=== PATIENT | male | born 1940 | race Caucasian/White ===

== ENCOUNTER 2020-01-24 15:09 | Emergency (ER) | payer MEDICARE, SELFPAY ==
[2020-01-24] VITALS (7 sets, daily range): BP systolic 117–144; BP diastolic 59–106; PULSE 86–104; RESP 16–18; TEMP 36.6; O2SAT 92–98
--- NOTE | 2020-01-24 15:11 | PC.NURSE ---
Patient and son yelling at staff at this time, get a in here now! Advised patient and son, i will find EDP at this time, also told family that I can not administer any medication unless ordered by EDP.
--- NOTE | 2020-01-24 15:13 | PC.NURSE ---
Patient son yelling out of room I need a doctor in here he has no fucking blood flow to his leg . Advised son that the doctor was with other patients and that he would be in as soon as he could.
--- NOTE | 2020-01-24 15:21 | ECG_ITS ---
Measurements Intervals [place] Rate: 80 P: [place]: 0 QRS: 43 QRSD: 109 T: -5 QT: 401 QTc: 464 Interpretive Statements ATRIAL FIBRILLATION VENTRICULAR PREMATURE COMPLEX EARLY PRECORDIAL R/S TRANSITION BORDERLINE ST-T WAVE ABNORMALITY- ANTEROLAT/INF LEADS BASELINE WANDER- AVR, AVL, AVF, V1-V3 ABNORMAL ECG Electronically Signed On 01-24-2020 20:35:22 CDT by Lex Anna D.O.
--- NOTE | 2020-01-24 15:21 | PC.NURSE ---
Zofran 4 mg and morphine 4 mg given IVP at this time, verbal order Dr. Hernandez.
--- NOTE | 2020-01-24 15:29 | ED.GENADULT ---
HPI - General Adult General Chief complaint: Extremity Injury, Lower Stated complaint: left knee and hip pain History of Present Illness HPI narrative: Patient is an 79-year-old male who presents ER with left lower extremity pain. Reports at 11 AM he started having some pain in his calf radiating down into his foot. It felt like a cramp. He was walking around trying to make it feel better. The pain has since started moving up his leg. The last 30 minutes he has developed severe uncontrolled pain of the left lower extremity and cannot find a position of comfort. Also in the last 30 minutes his leg has turned pale white. Patient has history of arterial occlusion of the same extremity in the past. He had a 3 stents placed at [facility] in the past in the same leg. Related Data Home Medications Medication Instructions Recorded Confirmed Unable to Obtain Home Medications 01/24/20 01/24/20 Allergies Allergy/AdvReac Type Severity Reaction Status Date / Time No Known Allergies Allergy Verified 01/24/20 15:21 Review of Systems Review of Systems: All systems reviewed & are unremarkable except as noted in HPI and below Cardiovascular: Comments: Decreased pulses in LLE Musculoskeletal: Musculoskeletal: Reports tingling Comments: LLE pain Integumentary/Breasts: Comments: Pale LLE PMFSH Past Medical History Medical History (Updated 01/24/20 @ 15:56 by Troy Hernandez MD) Arterial occlusion, lower extremity Atrial fibrillation Surgical History Surgical History (Updated 01/24/20 @ 15:35 by Troy Hernandez MD) History of revascularization procedure of lower extremity Social History Social History (Updated 01/24/20 @ 15:35 by Troy Hernandez MD) Smoking status: Never smoker Exam Narrative: Exam Narrative: GENERAL: Uncomfortable-appearing, well-nourished, and in moderate distress. HEAD: Normocephalic, atraumatic. ENT: Mucous membranes moist. CHEST: Clear to auscultation. No respiratory distress. HEART: Irregular regular rate and rhythm. Decreased pulses left lower extremity. Normal femoral pulses bilaterally. Normal radial pulses bilaterally. Dopplerable posterior tibial pulses right lower extremity. ABDOMEN: Soft, nontender, nondistended. EXTREMITIES: Normal range of motion. No edema. SKIN: Warm, diaphoretic, no rash. Pale left lower extremity compared to right. NEURO: Alert and oriented x3. Sharp touch intact. Course Course Emergency Course: I discussed the case with Dr. Ulrich with Vascular Surgery at [facility]. He preformed previous operation in Apr 2019. Recommends heparin bolus and gtt and to transfer to the ED. Pt has received bolus and gtt is coming from pharmacy. Dr. Corley in the ED has accepted patient. Currently arranging transport. Reevaluation(s) Reevaluation #1: Patient much more comfortable after morphine and Dilaudid for pain. Still reports pain however he is no longer writhing on the bed and is lying calmly with his eyes closed. His left lower extremity has improved in color. Is no longer bright light and has started to develop some purple appearance. Leg is warm compared to the right. Still no pulses can be palpated. Multiple ambulance companies have been contacted with 2-hour wait for an ambulance arrival. Is raining outside and [employer] has been contacted who cannot fly due to the weather. Date: 01/24/20 Time: 16:20 Reevaluation #2: Patient more comfortable despite sudden pain in the leg. Ambulance should be here shortly for transfer. Multiple other agencies called and no ambulances were available. Date: 01/24/20 Time: 17:58 Reevaluation #3: Ambulance arrival time pushed back from 1800 to . Will apply nitro past to see if it helps improve flow. Date: 01/24/20 Time: 18:54 Additional Reevaluation(s): Ambulance has arrived for transport at 1913. Nitro not yet applied so we will discontinue. Vital Signs Vital signs: Vital Signs Temperature 98 F 01/24/20 15:03 Puls
[2020-01-24] MEDS: HEPARIN SODIUM 5,000 UNITS/ML VIAL 8500 UNITS IV PUSH (15:34)
[2020-01-24 15:36] LABS: Hematocrit 40.3 % (42.0-52.0); Hemoglobin 13.4 g/dL (14.0-18.0); Mean Corpuscular HGB Conc 33.3 g/dl (32-36); Mean Corpuscular Hemoglobin 35.3 pg (26-34); Mean Corpuscular Volume 106.1 fl (80-100); Mean Platelet Volume 11.9 fl (7.4-10.4); Platelet Count Result 800 k/mm3 (150-375); Red Cell Distribution Width 16.5 % (11.5-14.5); White Blood Count 15.9 K/mm3 (4.5-10.0)
[2020-01-24 15:46] LABS: INR 1.3; Prothrombin Time 15.8 Seconds (11.1-14.7)
[2020-01-24 15:48] LABS: Anion Gap 10 mmol/L (8-16); Blood Urea Nitrogen 22 mg/dL (9-20); Calcium 9.2 mg/dL (8.4-10.2); Carbon Dioxide 26 mmol/L (22-30); Chloride 101 mmol/L (98-107); Estimated CRCL calculation 49 ml/min; Estimated Glomerular Filt Rate 53; Glucose 155 mg/dL (75-110); Potassium 3.7 mmol/L (3.4-5.0); Sodium 137 mmol/L (137-145)
[2020-01-24 15:50] LABS: Total Cells Counted 100
[2020-01-24 15:51] LABS: Eosinophils Absolute Manual 0.15 K/mm3 (0.02-0.5); Eosinophils Percent Manual 1 % (0-4); Lymphocytes Absolute Manual 3.33 K/mm3 (1.1-4.5); Lymphocytes Percent Manual 21 % (18-44); Monocytes Absolute Manual 2.38 K/mm3 (0.1-0.90); Monocytes Percent Manual 15 % (3-9); Neutrophils Percent Manual 63 % (46-73); Platelet Estimate Increased (Adequate)
[2020-01-24 15:52] LABS: Anisocytosis 1+ (NORMAL); Ovalocytes 1+ (NORMAL); Platelet Clumps Present
[2020-01-24] MEDS: HYDROmorphone HCL INJ (*CRX) 1 MG/ML SYR IV PUSH (16:00)
[2020-01-24] MEDS: HEPARIN SOD/D5W 100 UNITS/ML 25,000 UNITS/250 ML BAG 15 UNITS IV CONT (16:03)
[2020-01-24] MEDS: MORPHINE SULFATE (*CRX) 4 MG/ML INJ (17:57)
[2020-01-24] MEDS: MORPHINE SULFATE (*CRX) 4 MG/ML INJ IV PUSH (19:14)
--- NOTE | 2020-01-30 10:06 | PC.NURSE ---
LATE ENTRY This note is being entered to document information to the patient's record. The following information was omitted on 01/24/2020 at 1930. Patient transferred to [place] ED with heparin gtt infusing.
== END 2020-01-24 16:16 | disposition short-term general hospital (02) ==
PROVIDERS: Emergency Provider Emergency Medicine; PCP Internal Medicine
DX: I99.8 Other disorder of circulatory system (principal); I48.91 Unspecified atrial fibrillation; I49.3 Ventricular premature depolarization; R94.31 Abnormal electrocardiogram [ECG] [EKG]
CPT/HCPCS: 36415; 80048; 85025; 85610; 85730; 93005; 96365; 96366; 96375; 96376; 99285; J1170; J1644; J2270; J2405

== ENCOUNTER 2020-10-24 13:35 | Inpatient (IN) | payer MEDICARE, SELFPAY ==
[2020-10-24] VITALS (13 sets, daily range): BP systolic 84–111; BP diastolic 50–65; PULSE 71–108; RESP 14–20; TEMP 36.1–36.6; O2SAT 93–100; BMI 29.0
--- NOTE | ~2020-10-24 | XR_ITS ---
XR chest 2V DATE: 10/24/2020 14:13 INDICATION: Dizziness. Weakness. Shortness of breath. TECHNIQUE: AP and lateral chest COMPARISON: None FINDINGS: There is prominent elevation left leaf of diaphragm with associated mild atelectasis at the left lung base. The lungs are otherwise clear. No pleural effusion or pulmonary vascular congestion or pneumothorax. Heart size appears within normal limits. There is aortic ectasia and unfolding. No hilar or mediastin al enlargement. IMPRESSION: Prominent elevation left leaf of diaphragm with associated mild atelectasis at the left l yecenia base Reviewed, dictated and finalized at location A. IMPRESSION: Prominent elevation left leaf of diaphragm with associated mild ate lectasis at the left lung base
--- NOTE | ~2020-10-24 | XR_ITS ---
EXAMINATION: XR chest 2V EXAM DATE: 10/29/2020 16:30 INDICATION: Fever, eval for pneumonia. TECHNIQUE: Frontal and lateral projections of the chest obtained and reviewed. Comparison is made to prior examination from 10/24/2020. FINDINGS: Elevated left hemidiaphragm, possible paralysis. Some increase in the adjacent left basila r opacities, could be increasing atelectasis but developing pneumonia not excludable. There is no pne umothorax suspected. There are no pleural effusions. The cardiomediastinal silhouette is prominent bu t magnified on this AP technique. IMPRESSION: 1. Some progression of left basilar opacities, partly atelectasis but pneumonia not excludable. 2. Left hemidiaphragm elevation, possible paralysis. Reviewed, dictated and finalized at location A. IMPRESSION: 1. Some progression of left basilar opacities, partly atelectasis but pneumoni a not excludable. 2. Left hemidiaphragm elevation, possible paralysis.
--- NOTE | 2020-10-24 13:37 | ECG_ITS ---
Measurements Intervals [place] Rate: 96 P: [place]: 0 QRS: 26 QRSD: 98 T: -8 QT: 357 QTc: 451 Interpretive Statements ATRIAL FIBRILLATION BORDERLINE ST-T WAVE ABNORMALITY- INFERIOR LEADS BASELINE WANDER- I, II, III ABNORMAL ECG Electronically Signed On 10-24-2020 13:48:17 CDT by Lex Anna D.O.
[2020-10-24 13:51] LABS: Basophils Percent Auto 0.7 % (0.2-1.2); Eosinophils Percent Auto 0.7 % (0-4.4); Hematocrit 23.9 % (42.0-52.0); Hemoglobin 7.7 g/dL (14.0-18.0); Immature Granulocyte Absolute 0.09 K/mm3 (0.00-0.031); Immature Granulocyte Percent A 1.6 % (0-0.5); Lymphocytes Absolute Auto 1.36 K/mm3 (0.9-3.2); Lymphocytes Percent Auto 24.2 % (18.3-44.2); Mean Corpuscular HGB Conc 32.2 g/dl (32-36); Mean Corpuscular Hemoglobin 41.2 pg (26-34); Mean Corpuscular Volume 127.8 fl (80-100); Mean Platelet Volume 11.6 fl (7.4-10.4); Monocytes Absolute Auto 0.6 K/mm3 (0.1-0.6); Neutrophils Absolute Auto 3.5 K/mm3 (1.3-6.7); Neutrophils Percent Auto 62.8 % (45.5-73.1); Nucleated Red Blood Cells Absolute Auto 0.1 K/mm3 (0.0-0.012); Nucleated Red Blood Cells Perc 2.1 % (0.0-0.2); Platelet Count Result 641 k/mm3 (150-375); Red Blood Count 1.87 M/mm3 (4.6-6.20); Red Cell Distribution Width 21.2 % (11.5-14.5); White Blood Count 5.6 K/mm3 (4.5-10.0)
[2020-10-24 14:05] LABS: Alanine Aminotransferase 16 U/L (4-50); Albumin Level 3.4 g/dL (3.5-5.1); Alkaline Phosphatase 70 U/L (38-126); Anion Gap 6 mmol/L (8-16); Aspartate Amino Transferase 29 U/L (17-59); Bilirubin,Total 0.5 mg/dL (0.2-1.3); Blood Urea Nitrogen 28 mg/dL (9-20); Calcium 8.6 mg/dL (8.4-10.2); Carbon Dioxide 28 mmol/L (22-30); Chloride 102 mmol/L (98-107); Estimated CRCL calculation 47 ml/min; Estimated Glomerular Filt Rate 53; Glucose 106 mg/dL (65-110); Potassium 3.9 mmol/L (3.4-5.0); Sodium 136 mmol/L (137-145)
[2020-10-24 14:27] LABS: Add Urine Microscopic? YES; Appearance Urine Clear (Clear); Bacteria Urine Trace /hpf; Bilirubin Urine Negative (Negative); Blood Urine Negative (Negative); Color Urine Yellow (Yellow); Glucose Urine UA Negative (Negative); Ketones Urine Negative (Negative); Leukocyte Esterase Ur Trace LEU/UL (Negative); Mucus Urine Rare /lpf; Nitrate Urine Negative (Negative); Protein Urine Negative (Negative); RBC Urine 0-2 /hpf (0-2); Specific Grav Ur 1.021 (1.001-1.035); WBC Urine 0-3 /hpf
--- NOTE | 2020-10-24 15:04 | ED.WEAKNESS ---
HPI - Weakness General Chief complaint: Weakness Stated complaint: weakness Time Seen by Provider: 10/24/20 14:52 History of Present Illness HPI Narrative: Generalized weakness for the past few weeks. Associated with mild dizziness. 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 He has not noted any dark or bloody stools. He is unsure if he is usually anemic. No chest pain, fever, nausea, vomiting, diarrhea. Related Data Home Medications Medication Instructions Recorded Confirmed apixaban [Eliquis] 5 mg PO BID 10/24/20 10/24/20 clopidogrel 75 mg PO DAILY 10/24/20 10/24/20 fenofibrate nanocrystallized mg PO 10/24/20 hydrochlorothiazide 25 mg PO DAILY 10/24/20 10/24/20 hydroxyurea 500 mg PO DAILY 10/24/20 10/24/20 lisinopril 10 mg PO DAILY 10/24/20 10/24/20 metoprolol succinate 50 mg PO DAILY 10/24/20 10/24/20 simvastatin 40 mg PO DAILY 10/24/20 10/24/20 tamsulosin 0.4 mg PO DAILY 10/24/20 10/24/20 Allergies Allergy/AdvReac Type Severity Reaction Status Date / Time No Known Allergies Allergy Verified 10/24/20 14:29 Review of Systems Review of Systems: All systems reviewed & are unremarkable except as noted in HPI and below Constitutional: Constitutional: Denies chills, Reports fatigue, Denies fever(s) and Reports weakness ENT: Reports system reviewed and no additional complaints, except as documented Cardiovascular: Cardiovascular: Denies chest pain Respiratory: Respiratory: Denies dyspnea Gastrointestinal: Gastrointestinal: Denies diarrhea, Denies nausea and Denies vomiting Genitourinary: Genitourinary: Reports no additional male genitourinary complaints Musculoskeletal: Musculoskeletal: Reports no additional musculoskeletal complaints Neurologic: Reports as per HPI [facility] Past Medical History Medical History Arterial occlusion, lower extremity Atrial fibrillation Surgical History Surgical History History of revascularization procedure of lower extremity Social History Social History Smoking status: Never smoker Gender identity (if verbalized by the patient): Male Exam Const: General: no acute distress and alert Orientation/consciousness: patient oriented x3 HENMT: Head: normal to inspection Neck: Neck: normal visual inspection Resp: Effort & Inspection: normal respiratory effort Auscultation: clear to auscultation bilaterally, no rales, no rhonchi and no wheezes Cardio: Jugular venous distension: no JVD Rate: regular rate Rhythm: abnormal rhythm irregularly irregular GI: Inspection: non-distended GI Palp: Yes Soft to palpation and No Tenderness to palpation present (GI) Rectal Exam: normal sphincter tone and heme positive stool Skin: General skin exam: normal color Neuro: General: patient oriented x3 and moves all extremities Speech: normal speech Extrem: General: no edema Psych: Appearance: well kempt Affect: normal affect Course Course Emergency Course: Dr. Boles reports hemoglobin of 11 last month Vital Signs Vital signs: Vital Signs Temperature 36.6 C 10/24/20 13:38 Pulse Rate 108 H 10/24/20 13:38 Respiratory Rate 16 10/24/20 13:38 Blood Pressure 84/55 L 10/24/20 13:38 Pulse Oximetry 100 10/24/20 13:38 Temperature 36.6 C 10/24/20 13:38 Pulse Rate 84 10/24/20 16:01 Respiratory Rate 16 10/24/20 16:01 Blood Pressure 93/65 L 10/24/20 16:01 Pulse Oximetry 100 10/24/20 16:01 MDM - Weakness Differential Diagnosis Differential diagnosis: Likely anemia, hypoglycemia and dehydration Medical Records Attestation: I reviewed the patient's medical records. Lab Data Attestation: I reviewed the patient's lab results. Result diagrams: 10/24/20 13:44 10/24/20 13:44 Labs: Lab Results 10/24/20 10/24/20 10/24/20 Range/Units 13:44 13:44 14:
[2020-10-24] MEDS: SODIUM CHLORIDE 0.9% IV 500 ML 999 ML IV CONT (15:15)
--- NOTE | 2020-10-24 17:12 | ADMGEN ---
This patient, Fadi Best, was admitted to [facility] Surg Room 331-01. Patient/family oriented to hospital policies and general routines including ID bracelet, bed and alarms, visiting hours, pain management, procedures, bathroom and other care routines, personal items, smoking policy, room service/diet, and visiting hours. Information on how to activate the Rapid Response Team has been discussed. Patient/Family are encouraged to report perceived risks to care and to ask questions if they do not understand what they are told or what they should do.
[2020-10-24] MEDS: SODIUM CHLORIDE 0.9% IV 1,000 ML 100 ML IV CONT (17:20)
[2020-10-24] MEDS: ONDANSETRON INJ 4 MG/2 ML VIAL IV PUSH (17:21)
[2020-10-24 17:52] LABS: Hematocrit 22.4 % (42.0-52.0); Hemoglobin 7.2 g/dL (14.0-18.0)
[2020-10-24 21:56] LABS: Hematocrit 22.5 % (42.0-52.0); Hemoglobin 7.1 g/dL (14.0-18.0)
--- NOTE | 2020-10-24 23:09 | PM.IMHP ---
H&P: HPI History of Present Illness Date/Time: 10/24/20 23:09 This is an 80-year-old male patient who lives at home by himself. The patient sees Dr. 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 The patient is on Hydrea. The patient is on Eliquis it looks like possibly Lovenox as well. The patient stated over the last several months he has been very fatigued and short of breath. He has also had some mild dizziness. The patient feels as if he cannot get around the house like he used to. He can walk a very small amount of space and become weak and short of breath. Patient's H&H was 7.7 and 23.9. Is down to 7.1 and 22.5. The patient has been typed and cross-matched but no blood has been given yet. His platelet count is now up to 641. Sodium is 136. The patient stated that he noticed that he had darker stools but never bright red blood. The patient was started on IV fluids. However while getting up to the bathroom the patient not his IV out. The patient is being admitted to observation on the date of service of 10/24/2020. Chief Complaint: generalized weakness Review of Systems Review of Systems: All systems reviewed & are unremarkable except as noted in HPI and below Constitutional: Constitutional: Reports as per HPI and Reports no additional constitutional complaints Eyes: Eyes: Reports as per HPI and Reports no additional eye complaints ENT: Reports system reviewed and no additional complaints, except as documented and Reports Normal hearing present Cardiovascular: Cardiovascular: Reports no additional cardiovascular complaints Respiratory: Respiratory: Reports no additional respiratory complaints and Reports no additional respiratory complaints Gastrointestinal: Gastrointestinal: Reports as per HPI and Reports no additional gastrointestinal complaints Musculoskeletal: Musculoskeletal: Reports no additional musculoskeletal complaints Integumentary/Breasts: Skin/Breast: Reports system reviewed and no additional complaints, except as docu and Reports as per HPI Neurologic: Reports system reviewed and no additional complaints, except as documented, Reports as per HPI and Reports Normal hearing present Psychiatric: Psychiatric: Reports no additional psychiatric complaints and Reports as per HPI Endocrine: Endocrine: Reports no additional endocrine complaints Hematologic/Lymphatic: Hematologic/Lymphatic: Reports no additional hematologic/lymphatic complaints Allergic/Immunologic: Allergic/Immunologic: Reports no additional allergic/immunologic complaints [facility] Past Medical History Medical History (Updated 10/24/20 @ 23:22 by Ella Lutz NP) Arterial occlusion, lower extremity Atrial fibrillation BPH (benign prostatic hyperplasia) CVA (cerebral vascular accident) DVT (deep venous thrombosis) Hyperlipidemia Hypertension Myelodysplastic disease Surgical History Surgical History History of appendectomy History of revascularization procedure of lower extremity Family History Family History (Updated 10/24/20 @ 23:23 by Ella Lutz NP) Unknown No family history of disorders Social History Social History (Updated 10/24/20 @ 23:23 by Ella Lutz NP) Social History: the patient is a former smoker. 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 The patient lives home alone. He has 3 sons. The patient stated that he wants to be a DNR. His sons are the durable power disability attorney for healthcare. The patient is since this past [place]. The patient used to drink heavily when he was younger but no longer drinks any alcohol. Smoking status: Former smoker Alcohol intake: former Substance use: never Gender identity (if verbalized by the patient): Male Spiritual care concerns: No Meds Home Medications and Allergies Home Medications Medication Instructions Recorded Confirmed Type
[2020-10-25] VITALS (19 sets, daily range): BP systolic 85–115; BP diastolic 52–69; PULSE 57–109; RESP 14–23; TEMP 36.1–37.2; O2SAT 97–100
--- NOTE | 2020-10-25 05:33 | PC.NURSE ---
called Dr. Nunn over patients low BP. She ordered a bolus as well as a unit of blood due to his low hemoglobin
[2020-10-25] MEDS: SODIUM CHLORIDE 0.9% IV 500 ML IV CONT (05:43)
[2020-10-25 06:24] LABS: Basophils Percent Auto 0.7 % (0.2-1.2); Eosinophils Absolute Auto 0.1 K/mm3 (0-0.3); Eosinophils Percent Auto 1.1 % (0-4.4); Hematocrit 21.6 % (42.0-52.0); Immature Granulocyte Absolute 0.05 K/mm3 (0.00-0.031); Immature Granulocyte Percent A 1.1 % (0-0.5); Lymphocytes Percent Auto 24.8 % (18.3-44.2); Mean Corpuscular HGB Conc 31.5 g/dl (32-36); Mean Corpuscular Hemoglobin 40.5 pg (26-34); Mean Corpuscular Volume 128.6 fl (80-100); Mean Platelet Volume 11.8 fl (7.4-10.4); Monocytes Absolute Auto 0.5 K/mm3 (0.1-0.6); Monocytes Percent Auto 10.6 % (2.6-8.5); Neutrophils Absolute Auto 2.7 K/mm3 (1.3-6.7); Neutrophils Percent Auto 61.7 % (45.5-73.1); Nucleated Red Blood Cells Absolute Auto 0.1 K/mm3 (0.0-0.012); Nucleated Red Blood Cells Perc 1.6 % (0.0-0.2); Platelet Count Result 464 k/mm3 (150-375); Red Blood Count 1.68 M/mm3 (4.6-6.20); Red Cell Distribution Width 21.3 % (11.5-14.5); White Blood Count 4.4 K/mm3 (4.5-10.0)
[2020-10-25 06:40] LABS: Lactic Acid Reflex 1.1 mmol/L (0.7-2.1)
[2020-10-25 06:45] LABS: Anion Gap 2 mmol/L (8-16); Blood Urea Nitrogen 24 mg/dL (9-20); Calcium 8.1 mg/dL (8.4-10.2); Carbon Dioxide 29 mmol/L (22-30); Chloride 106 mmol/L (98-107); Estimated CRCL calculation 47 ml/min; Estimated Glomerular Filt Rate 53; Glucose 90 mg/dL (65-110); Lipase 69 U/L (23-300); Potassium 4.1 mmol/L (3.4-5.0); Sodium 137 mmol/L (137-145)
[2020-10-25 07:23] LABS: Hemoglobin 6.8 g/dL (14.0-18.0)
[2020-10-25 07:24] LABS: Platelet Estimate Increased (Adequate)
[2020-10-25 07:25] LABS: Macrocytosis 1+ (NORMAL); Poikilocytosis 1+ (NORMAL)
[2020-10-25 07:26] LABS: Hypersegmented Neutrophils Present
[2020-10-25 07:27] LABS: Anisocytosis 1+ (NORMAL); Polychromasia 1+ (NORMAL); Stomatocytes 1+ (NORMAL)
[2020-10-25] MEDS: SODIUM CHLORIDE 0.9% IV 250 ML 30 ML IV CONT (08:35)
[2020-10-25] MEDS: FAMOTIDINE 20 MG/2 ML VIAL IV PUSH (08:36)
[2020-10-25 08:39] LABS: Free T4 Free Thyroxine Reflex 1.17 ng/dL (0.78-2.19)
--- NOTE | 2020-10-25 09:04 | WPDGICN ---
Assessment and Plan Assessment and plan (1) Melena: Code(s): K92.1 - Melena Status: Acute Assessment and Plan: with drop of hb in setting of blood thinners iv protonix urgent egd today (2) Acute blood loss anemia: Code(s): D62 - Acute posthemorrhagic anemia Status: Acute Assessment and Plan: he has blood dyscrasia but now with bleeding based on history egd to assess (3) GI bleed: Code(s): K92.2 - Gastrointestinal hemorrhage, unspecified Status: Acute Assessment and Plan: iv protonix holding blood thinners (4) Atrial fibrillation: Code(s): I48.91 - Unspecified atrial fibrillation Status: Chronic (5) Myelodysplastic disease: Code(s): C94.6 - Myelodysplastic disease, not classified Status: Chronic Assessment and Plan: he is seeing hematology as outpatient (6) 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 He also is on Eliquis and apparently on lovenox based on records. He is here with 3-4 weeks of progressive fatigue, feeling dizzy with dyspnea on exertion and also dark stools. and short of breath. He was admitted for GIB, hb was 7.7 down to 7.1 (last year 13). No recent EGD. He says that had colonoscopy but years ago. Review of Systems Constitutional: Constitutional: Reports fatigue and Reports weakness Eyes: Eyes: Reports no additional eye complaints ENT: Reports Normal hearing present Cardiovascular: Cardiovascular: Reports lightheadedness Respiratory: Respiratory: Reports dyspnea on exertion Gastrointestinal: Gastrointestinal: Denies abdominal pain and Reports melena Genitourinary: Genitourinary: Denies dysuria Musculoskeletal: Musculoskeletal: Denies neck pain Integumentary/Breasts: Skin/Breast: Denies dry skin Neurologic: Denies confusion Psychiatric: Psychiatric: Reports no additional psychiatric complaints [facility] Past Medical History Medical History (Updated 10/25/20 @ 11:02 by Abraham Liriano MD) Acute blood loss anemia Arterial occlusion, lower extremity Atrial fibrillation BPH (benign prostatic hyperplasia) CVA (cerebral vascular accident) DVT (deep venous thrombosis) 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 The patient lives home alone. He has 3 sons. The patient stated that he wants to be a DNR. His sons are the durable power defense attorney for healthcare. The patient is since this past [place]. The patient used to drink heavily when he was younger but no longer drinks any alcohol. Smoking status: Former smoker Alcohol intake: former Substance use: never Gender identity (if verbalized by the patient): Male Spiritual care concerns: No Meds Home Medications and Allergies Home Medications Medication Instructions Recorded Confirmed Type apixaban [Eliquis] 5 mg PO BID 10/24/20 10/24/20 History aspirin [Aspirin Low Dose] 81 mg PO DAILY 10/24/20 10/24/20 History clopidogrel 75 mg PO DAILY 10/24/20 10/24/20 History enoxaparin 100 mg SUBCUT BID 10/24/20 10/24/20 History fenofibrate nanocrystallized 145 mg PO HS 10/24/20 10/24/20
[2020-10-25] MEDS: LACTATED RINGERS 1,000 ML 150 ML IV CONT (10:34)
--- NOTE | 2020-10-25 11:04 | WPDANESEPPF ---
Anes - Initial Pre Proc Eval Procedure: Operation Date: 10/25/20 11:30 Proposed Procedures p Esophagogastroduodenoscopy - Abraham Liriano MD Date/Time: 10/25/20 11:04 Surgeon: Radha Agudelo PA-C Pre Op Diagnosis: GI bleed/Anemia Patient Data Age: 80 Gender: M Height: 1.91 m Weight: 105.5 kg Last Vital Signs Temp 96.9 F L 10/25/20 10:30 Pulse 57 L 10/25/20 10:30 Resp 18 10/25/20 10:30 BP 103/66 10/25/20 10:30 Pulse Ox 100 10/25/20 10:30 Allergies Allergy/AdvReac Type Severity Reaction Status Date / Time No Known Allergies Allergy Verified 10/24/20 20:06 Home Medications Medication Instructions Recorded Confirmed Type apixaban [Eliquis] 5 mg PO BID 10/24/20 10/24/20 History aspirin [Aspirin Low Dose] 81 mg PO DAILY 10/24/20 10/24/20 History clopidogrel 75 mg PO DAILY 10/24/20 10/24/20 History enoxaparin 100 mg SUBCUT BID 10/24/20 10/24/20 History fenofibrate nanocrystallized 145 mg PO HS 10/24/20 10/24/20 History finasteride 5 mg PO DAILY 10/24/20 10/24/20 History hydrochlorothiazide 25 mg PO DAILY 10/24/20 10/24/20 History hydroxyurea 500 mg PO DIRECTED 10/24/20 10/24/20 History lisinopril 10 mg PO DAILY 10/24/20 10/24/20 History metoprolol succinate 50 mg PO DAILY 10/24/20 10/24/20 History simvastatin 40 mg PO HS 10/24/20 10/24/20 History tamsulosin 0.4 mg PO HS 10/24/20 10/24/20 History Laboratory Tests 10/24/20 10/24/20 10/24/20 13:44 13:44 14:14 WBC 5.6 K/mm3 K/mm3 (4.5-10.0) RBC 1.87 M/mm3 L M/mm3 (4.6-6.20) Hgb 7.7 g/dL L D g/dL (14.0-18.0) Hct 23.9 % L % (42.0-52.0) MCV 127.8 fl H fl (80-100) MCH 41.2 pg H pg (26-34) MCHC 32.2 g/dl g/dl (32-36) RDW 21.2 % H % (11.5-14.5) Plt Count 641 k/mm3 H k/mm3 (150-375) MPV 11.6 fl H fl (7.4-10.4) Immature Gran % (Auto) 1.6 % H % (0-0.5) Neut % (Auto) 62.8 % % (45.5-73.1) Lymph % (Auto) 24.2 % % (18.3-44.2) [place] % (Auto) 10.0 % H % (2.6-8.5) Eos % (Auto) 0.7 % % (0-4.4) Baso % (Auto) 0.7 % % (0.2-1.2) Lymph # (Auto) 1.36 K/mm3 K/mm3 (0.9-3.2) [place] # (Auto) 0.6 K/mm3 K/mm3 (0.1-0.6) Eos # (Auto) 0.0 K/mm3 K/mm3 (0-0.3) Baso # (Auto) 0.0 K/mm3 K/mm3 (0.0-0.1) Abs Immat Gran (auto) 0.09 K/mm3 H K/mm3 (0.00-0.031) Absolute Neuts (auto) 3.5 K/mm3 K/mm3 (1.3-6.7) Absolute Nucleated RBC 0.1 K/mm3 H K/mm3 (0.0-0.012) Nucleated RBC % 2.1 % H % (0.0-0.2) Hypersegmented Neuts Platelet Estimate Polychromasia Poikilocytosis Anisocytosis Macrocytosis Stomatocytes Sodium 136 mmol/L L mmol/L (137-145) Potassium 3.9 mmol/L mmol/L (3.4-5.0) Chloride 102 mmol/L mmol/L (98-107) Carbon Dioxide 28 mmol/L mmol/L (22-30) Anion Gap 6 mmol/L L mmol/L (8-16) BUN 28 mg/dL H mg/dL (9-20) Creatinine 1.30 mg/dL mg/dL (0.7-1.3) Estim Creat Clear Calc 47 ml/min ml/min Estimated GFR 53 L (59 - ) Glucose 106 mg/dL mg/dL (65-110) Lactic Acid Calcium 8.6 mg/dL mg/dL (8.4-10.2) Magnesium Total Bilirubin 0.5 mg/dL mg/dL (0.2-1.3) AST 29 U/L U/L (17-59) ALT 16 U/L U/L (4-50) Alkaline Phosphatase 70 U/L U/L (38-126) Total Protein 6.0 g/dL L g/dL (6.3-8.2) Albumin 3.4 g/dL L g/dL (3.5-5.1) Lipase TSH (Reflex) Free T4 Total T3 Urine Color Yellow (Yellow) Urine Appearance Clear (Clear) Urine pH 6.0 (5.0-9.0) Ur Specific [place] 1.021 (1.001-1.035) Urine Protein N
--- NOTE | 2020-10-25 11:16 | PCPTNOTE ---
PT eval on hold due to pt receiving blood and going for procedure. Will try again at later time.
[2020-10-25] MEDS: BENZOCAINE (*SP) 60 ML SPRAY CAN (HURRICAINE) 1 SPRAY MUCOUS MEM (11:46)
--- NOTE | 2020-10-25 14:36 | PCOTNOTE ---
Attempted evaluation. Pt. put on hold for the day per nurse report. Will follow for updates.
[2020-10-25 14:43] LABS: Hematocrit 25.6 % (42.0-52.0); Hemoglobin 8.1 g/dL (14.0-18.0)
--- NOTE | 2020-10-25 14:59 | PCPTNOTE ---
RN stated to hold PT eval. Will try again tomorrow.
--- NOTE | 2020-10-25 15:55 | PM.IMPN ---
Progress Note: A&P Assessment and Plan (1) Anemia: Code(s): D64.9 - Anemia, unspecified Status: Acute Assessment and Plan: acute on chronic. He has myelodysplastic disease and is established with hematology. Acute anemia likely secondary to blood loss. Hemoglobin declined to 6.8 and he was transfused 1 unit. stable at 8.1 now. Monitor H&H Q 6 to ensure remaining stable Transfuse as needed with hemoglobin threshold <7.0 (2) GI bleed: Code(s): K92.2 - Gastrointestinal hemorrhage, unspecified Status: Acute Assessment and Plan: underwent EEG today which showed gastritis and duodenal ulcer without evidence of bleeding, but likely explains melena and anemia. Continue Protonix b.i.d. hold Eliquis. recommended per GI to hold for 7 days. Will put a call in to his vascular surgeon's office to discuss this. Aspirin and Plavix on hold at this time Advance diet as tolerated (3) Myelodysplastic disease: Code(s): C94.6 - Myelodysplastic disease, not classified Status: Chronic Assessment and Plan: Established with banquet set up person Dr. Boles continue with scheduled follow-up cancel Hematology consultation as H&H remaining stable following transfusion. Will contact Dr. Boles's office should any issues arise (4) Hypertension: Code(s): I10 - Essential (primary) hypertension Status: Chronic Assessment and Plan: blood pressure reviewed and has been on the soft side. Holding antihypertensives monitor BP. Continue IV fluids. (5) Atrial fibrillation: Code(s): I48.91 - Unspecified atrial fibrillation Status: Chronic Assessment and Plan: Rate is controlled. Eliquis on hold given GI bleed. holding metoprolol Subjective Date/time seen: 10/25/20 15:55 Interval history: date of service: 10/25/2020 Fadi Best is an 80-year-old male with a history of peripheral vascular disease and atrial fibrillation on chronic anticoagulation, eyelid dysplastic disease, CVA, hyperlipidemia, and hypertension who is seen in follow-up for anemia with occult blood in stools. He underwent EGD this morning and tolerated the procedure well. He is eating lunch and tolerating his diet. He denies nausea, vomiting. Denies shortness of breath or chest pain. Denies dizziness or lightheadedness. His last bowel movement was last night and he denied any blood in his stool. He has been urinating without difficulty. He is very concerned about holding his Eliquis, stating he developed a blood clot when he went off of it for 2 days last time. He would like me to contact his vascular surgeon to ensure pausing his Eliquis is appropriate Review of Systems Review of Systems: All systems reviewed & are unremarkable except as noted in HPI and below Exam Narrative: Exam Narrative: Mr. Best is a well-nourished, well-appearing 80-year-old male who is sitting up in bed eating lunch. he appears comfortable and is in NARD. Neuro: awake, alert and oriented x4, speech clear, no focal neuro deficits noted HEENMT: normocephalic, atraumatic, EOMI, sclerae anicteric, moist oral mucosa Neck: supple, no lymphadenopathy Respiratory: clear to auscultation bilaterally, nonlabored breathing Cardio: regular rate, regular rhythm with S1-S2 Abdomen: nondistended, normoactive bowel sounds, soft, nontender to palpation Extremities: no edema, erythema, or tenderness to palpation, DP pulses 2+ bilaterally Skin: well-healed scars on left lower extremity, no rashes or lesions, warm and dry Psych: appropriate mood and affect, judgment and insight intact Objective Data Vital Signs Vital Signs: Vital Signs - 24 hr 10/24/20 16:00 10/24/20 16:01 10/24/20 17:28 Temperature 97.0 F L Pulse Rate 82 84 71 Respiratory Rate 18 16 18 Blood Pressure 93/65 L 111/60 Pulse Oximetry 98 100 93 10/24/20 18:10 10/24/20 20:00 0
[2020-10-25] MEDS: FENOFIBRATE NANOCRYSTALLIZED 145 MG TABLET PO (21:07)
[2020-10-25] MEDS: TAMSULOSIN HCL 0.4 MG CAPSULE PO (21:07)
[2020-10-25] MEDS: PANTOPRAZOLE 40 MG TABLET PO (21:07)
[2020-10-25 22:46] LABS: Glucose Point of Care 124 mg/dl (65-105)
[2020-10-25 23:27] LABS: Hemoglobin 7.4 g/dL (14.0-18.0)
[2020-10-26] VITALS (14 sets, daily range): BP systolic 99–144; BP diastolic 59–96; PULSE 81–122; RESP 16–18; TEMP 36.1–37.2; O2SAT 96–100
[2020-10-26 07:10] LABS: Hematocrit 22.8 % (42.0-52.0); Mean Corpuscular HGB Conc 30.7 g/dl (32-36); Mean Corpuscular Hemoglobin 38.9 pg (26-34); Mean Corpuscular Volume 126.7 fl (80-100); Platelet Count Result 349 k/mm3 (150-375); Red Cell Distribution Width 26.5 % (11.5-14.5); White Blood Count 4.1 K/mm3 (4.5-10.0)
[2020-10-26 07:27] LABS: Anion Gap 2 mmol/L (8-16); Blood Urea Nitrogen 16 mg/dL (9-20); Calcium 7.8 mg/dL (8.4-10.2); Carbon Dioxide 26 mmol/L (22-30); Chloride 107 mmol/L (98-107); Estimated CRCL calculation 55 ml/min; Estimated Glomerular Filt Rate > 60; Glucose 89 mg/dL (65-110); Potassium 3.8 mmol/L (3.4-5.0); Sodium 135 mmol/L (137-145)
[2020-10-26] MEDS: FINASTERIDE 5 MG TABLET PO (08:47)
[2020-10-26] MEDS: PANTOPRAZOLE 40 MG TABLET PO ×2 (08:48→20:54)
[2020-10-26] MEDS: SODIUM CHLORIDE 0.9% IV 250 ML 30 ML IV CONT (11:59)
[2020-10-26] MEDS: TUBING, BLOOD PLUM PUMP TUBING 1 EACH XX (12:08)
--- NOTE | 2020-10-26 15:08 | PM.IMPN ---
Progress Note: A&P Assessment and Plan (1) Anemia: Code(s): D64.9 - Anemia, unspecified Status: Acute Assessment and Plan: Acute on chronic with baseline typically around 12.0. Acute anemia likely secondary to GI bleed. Hemoglobin declined to 6.8 and he was transfused 1 unit. stable at 8.1 now. Received 1 unit pRBC on 10/25 and currently receiving second unit with Hgb 7.0 this AM Repeat H&H 1 hour following transfusion. Trend H&H Q 6 to ensure remaining stable Transfuse as needed with hemoglobin threshold <7.0 (2) GI bleed: Code(s): K92.2 - Gastrointestinal hemorrhage, unspecified Status: Acute Assessment and Plan: Underwent EGD on 10/25 which showed gastritis and duodenal ulcer without evidence of active bleeding, but likely explains melena and anemia, especially when considering his use of blood thinners and antiplatelets. Continue Protonix b.i.d. Recommended per GI to hold Eliquis for 7 days. Discussed with pt's vascular surgeon ON AIR ANNOUNCER at Dr. Ulrich's office who agrees with holding Eliquis in light of bleed Aspirin and Plavix on hold at this time. Discussed with GI and his vascular surgeon. Can consider resuming Plavix in the next couple days depending on his blood counts Advance diet as tolerated No further episodes of melena. 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 Boles Platelet count has normalized today. Mild leukopenia Discussed with ON AIR ANNOUNCER at hematology office in light of anemia. recommend continuing to hold hydroxyurea at this time. continue with scheduled follow-up (4) Hypertension: Code(s): I10 - Essential (primary) hypertension Status: Chronic Assessment and Plan: blood pressure reviewed and has been generally well controlled with some readings on the lower and. Last BP was 113/71. Resume metoprolol. Continue to hold lisinopril with low-normal BP monitor BP trends (5) Atrial fibrillation: Code(s): I48.91 - Unspecified atrial fibrillation Status: Chronic Assessment and Plan: Rate is controlled. Eliquis on hold given GI bleed. resume metoprolol Subjective Date/time seen: 10/26/20 15:08 Interval history: date of service: 10/26/2020 Fadi Best is an 80-year-old male with a history of peripheral vascular disease and atrial fibrillation on chronic anticoagulation, myelodysplastic disease, CVA, hyperlipidemia, and hypertension who is seen in follow-up for anemia with occult blood in stools. He is currently receiving a blood transfusion. He is feeling all right, mostly just quite tired and weak. He is occasionally short of breath with activity. Denies chest pain or palpitations. Denies dizziness or lightheadedness. He had a bowel movement today that he reports was brown in color. Denies hematuria. No N/V/F/C. He has been eating poorly because he is not a fan of the food here. His son plans to bring him in some food today that he will enjoy. Review of Systems Review of Systems: All systems reviewed & are unremarkable except as noted in HPI and below Exam Narrative: Exam Narrative: Mr. Best is a well-nourished, well-appearing 80-year-old male who is lying semi recumbent in bed. he appears comfortable and is in NARD. Neuro: awake, alert and oriented x4, speech clear, no focal neuro deficits noted HEENMT: normocephalic, atraumatic, EOMI, sclerae anicteric, moist oral mucosa Neck: supple, no lymphadenopathy Respiratory: clear to auscultation bilaterally, nonlabored breathing Cardio: regular rate, regular rhythm with S1-S2 Abdomen: nondistended, normoactive bowel sounds, soft, nontender to palpation Extremities: no edema, erythema, or tenderness to palpation, DP pulses 2+ bilaterally Skin: well-healed scars on left lowe
[2020-10-26 16:09] LABS: Hematocrit 25.7 % (42.0-52.0); Hemoglobin 8.1 g/dL (14.0-18.0)
--- NOTE | 2020-10-26 16:11 | WPDGIPROGNO ---
Progress Note: A&P Assessment and Plan (1) Erosive gastritis: Code(s): K29.60 - Other gastritis without bleeding Status: Acute Assessment and Plan: egd findings can explain recent melena in setting of blood thinner and antiplatelets. hold eliquis for 7 days, probably plavix to resume in 2 days (primary discussed case with his vascular surgeon) (2) GI bleed: Code(s): K92.2 - Gastrointestinal hemorrhage, unspecified Status: Acute (3) Acute blood loss anemia: Code(s): D62 - Acute posthemorrhagic anemia Status: Acute Assessment and Plan: continue to monitor, last stool normal color continue with ppi (4) Hx of care home use of blood thinners: Code(s): Z92.29 - Personal history of other drug therapy Status: Acute Assessment and Plan: no hold for now Subjective Date/time seen: 10/26/20 16:11 Interval history: egd yesterday with erosive gastritis and duodenal ulcer- no active bleeding. No more dark stool but he is getting another unit of prbc Review of Systems Review of Systems: All systems reviewed & are unremarkable except as noted in HPI and below Exam Const: General: comfortable and no acute distress HENMT: General nose exam: Normal nares present Eyes: Sclera: sclerae normal Neck: Neck: supple Resp: Auscultation: clear to auscultation bilaterally Cardio: Rate: regular rate GI: Inspection: non-distended GI Palp: Yes Soft to palpation, No Tenderness to palpation present (GI) and Yes Guarding due to palpation present (GI) Skin: Other: pale Neuro: Speech: normal speech Motor exam (neuro): Normal motor muscle tone present throughout Extrem: General: normal to inspection Psych: Mental Status: mental status grossly normal Objective Data Vital Signs Vital Signs: Vital Signs - 24 hr 10/25/20 20:00 10/25/20 22:00 10/26/20 00:00 Temperature 98.9 F Pulse Rate 85 109 H 95 Respiratory Rate 18 Blood Pressure 111/61 Pulse Oximetry 97 10/26/20 04:00 10/26/20 05:51 10/26/20 08:00 Temperature 97.9 F Pulse Rate 84 84 122 H Respiratory Rate 18 Blood Pressure 113/59 L Pulse Oximetry 96 97 10/26/20 12:00 10/26/20 12:06 10/26/20 12:23 Temperature 97.5 F L 97.3 F L Pulse Rate 89 92 90 Respiratory Rate 16 18 Blood Pressure 106/60 99/60 L Pulse Oximetry 99 100 10/26/20 13:23 10/26/20 14:23 10/26/20 15:00 Temperature 97.7 F 97.0 F L 97.7 F Pulse Rate 91 81 91 Respiratory Rate 18 16 16 Blood Pressure 107/64 111/70 113/71 Pulse Oximetry 100 99 98 Intake/Output Intake/Output: Intake & Output 10/23/20 10/24/20 10/25/20 10/26/20 23:59 23:59 23:59 23:59 Intake Total 500 1390 1340 Balance 500 1390 1340 Meds/Results Medications: Active Medications Generic Name Dose Route Start Last Admin Trade Name Freq PRN Reason Stop Dose Admin Clopidogrel Bisulfate 75 mg 10/25/20 09:00 10/25/20 08:37 Clopidogrel Bisulfate 75 Mg Tablet PO Not Given DAILY ITA Fenofibrate 145 mg 10/24/20 23:10 10/25/20 21:07 Fenofibrate Nanocrystallized 145 Mg Tablet PO 145 mg HS ITA Administration Finasteride 5 mg 10/25/20 09:00 10/26/20 08:47 Finasteride 5 Mg Tablet PO 5 mg DAILY ITA Administration Sodium Chloride 250 mls @ 30 mls/hr 10/26/20 07:54 10/26/20 11:59 Normal Saline Iv IV CONT 10/26/20 16:13 30 mls/hr .Q8H20M STA Administration Metoprolol Succinate 50 mg 10/27/20 09:00 Metoprolol Succinate Ext Rel 50 Mg Tabcr PO DAILY ITA Ondansetron HCl 4 mg 10/24/20 15:57 10/24/20 17:21 Ondansetron Inj 4 Mg/2 Ml Vial IV PUSH 4 mg Q4H PRN Administration Nausea Pantoprazole Sodium 40 mg 10/25/20 21:00 10/26/20 08:48 Pantoprazole 40 Mg Tablet PO 40 mg Q12HR ITA Administration Tamsulosin HCl 0.4 mg 10/24/20 23:10 10/25/20 21:07 Tamsulosin Hcl 0.4 Mg Capsule PO 0.4 mg HS ITA Administration Radiology Results: ITS Impressions C
[2020-10-26] MEDS: TAMSULOSIN HCL 0.4 MG CAPSULE PO (20:54)
[2020-10-26] MEDS: FENOFIBRATE NANOCRYSTALLIZED 145 MG TABLET PO (20:54)
[2020-10-26 22:11] LABS: Hemoglobin 7.8 g/dL (14.0-18.0)
[2020-10-27] VITALS (9 sets, daily range): BP systolic 98–119; BP diastolic 44–75; PULSE 82–102; RESP 16–18; TEMP 36.4–37.2; O2SAT 94–97
[2020-10-27 06:45] LABS: Basophils Percent Auto 0.5 % (0.2-1.2); Eosinophils Percent Auto 0.3 % (0-4.4); Hematocrit 25.3 % (42.0-52.0); Hemoglobin 8.2 g/dL (14.0-18.0); Immature Granulocyte Absolute 0.11 K/mm3 (0.00-0.031); Immature Granulocyte Percent A 1.7 % (0-0.5); Lymphocytes Percent Auto 9.3 % (18.3-44.2); Mean Corpuscular HGB Conc 32.4 g/dl (32-36); Mean Corpuscular Volume 117.1 fl (80-100); Mean Platelet Volume 11.6 fl (7.4-10.4); Monocytes Absolute Auto 1.1 K/mm3 (0.1-0.6); Monocytes Percent Auto 16.3 % (2.6-8.5); Neutrophils Absolute Auto 4.6 K/mm3 (1.3-6.7); Neutrophils Percent Auto 71.9 % (45.5-73.1); Nucleated Red Blood Cells Absolute Auto 0.1 K/mm3 (0.0-0.012); Nucleated Red Blood Cells Perc 0.8 % (0.0-0.2); Platelet Count Result 389 k/mm3 (150-375); Red Blood Count 2.16 M/mm3 (4.6-6.20); Red Cell Distribution Width 26.6 % (11.5-14.5); White Blood Count 6.4 K/mm3 (4.5-10.0)
[2020-10-27 06:56] LABS: Anion Gap 7 mmol/L (8-16); Blood Urea Nitrogen 14 mg/dL (9-20); Calcium 8.2 mg/dL (8.4-10.2); Carbon Dioxide 23 mmol/L (22-30); Chloride 103 mmol/L (98-107); Estimated CRCL calculation 60 ml/min; Estimated Glomerular Filt Rate > 60; Glucose 111 mg/dL (65-110); Potassium 3.6 mmol/L (3.4-5.0); Sodium 133 mmol/L (137-145)
[2020-10-27] MEDS: METOPROLOL SUCCINATE EXT REL 50 MG TABCR PO (09:07)
[2020-10-27] MEDS: FINASTERIDE 5 MG TABLET PO (09:07)
[2020-10-27] MEDS: PANTOPRAZOLE 40 MG TABLET PO ×2 (09:08→21:15)
[2020-10-27 11:53] LABS: Hematocrit 24.4 % (42.0-52.0); Hemoglobin 7.8 g/dL (14.0-18.0)
--- NOTE | 2020-10-27 12:52 | PCOTNOTE ---
Attempted therapy session with patient, but patient refused all ADLs, transfers, exercises and functional activities, asking to be checked on again tomorrow as he is just too tired today.
--- NOTE | 2020-10-27 15:12 | PM.IMPN ---
Progress Note: A&P Assessment and Plan (1) Anemia: Code(s): D64.9 - Anemia, unspecified Status: Acute Assessment and Plan: Acute on chronic with baseline typically around 12.0. Acute anemia likely secondary to GI bleed. He has been transfused a total of 2 units pRBC Hgb 7.8 this afternoon. continue to monitor H&H q6h to ensure remaining stable Transfuse as needed with hemoglobin threshold <7.0 (2) GI bleed: Code(s): K92.2 - Gastrointestinal hemorrhage, unspecified Status: Acute Assessment and Plan: Underwent EGD on 10/25 which showed gastritis and duodenal ulcer without evidence of active bleeding, but likely explains melena and anemia, especially when considering his use of blood thinners and antiplatelets. Continue Protonix b.i.d. Recommended per GI to hold Eliquis for 7 days. Discussed with pt's vascular surgeon PROGRAM SUPPORT ASSISTANT at Dr. Ulrich's office who agrees with holding Eliquis in light of bleed Aspirin and Plavix on hold at this time. Discussed with GI and his vascular surgeon. Will plan to resume Plavix on 10/28/20 No further episodes of melena. (3) Essential thrombocytosis: Code(s): D47.3 - Essential (hemorrhagic) thrombocythemia Status: Acute Assessment and Plan: Established with mixed animal veterinarian Dr. Boles Platelet count has normalized today Discussed with PROGRAM SUPPORT ASSISTANT at hematology office in light of anemia. recommend continuing to hold hydroxyurea at this time. continue with scheduled follow-up (4) Hypertension: Code(s): I10 - Essential (primary) hypertension Status: Chronic Assessment and Plan: blood pressure reviewed and has been generally well controlled. BP on the lower end of normal today. Last BP 113/68 Hold metoprolol evening dose. Continue to hold lisinopril monitor BP trends will check orthostatics (5) Atrial fibrillation: Code(s): I48.91 - Unspecified atrial fibrillation Status: Chronic Assessment and Plan: Rate is controlled. Eliquis on hold given GI bleed. Hold metoprolol Additional Plan Care coordination following to consider SNF placement Subjective Date/time seen: 10/27/20 15:12 Interval history: date of service: 10/27/2020 Fadi Best is an 80-year-old male with a history of peripheral vascular disease and atrial fibrillation on chronic anticoagulation, myelodysplastic disease, CVA, hyperlipidemia, and hypertension who is seen in follow-up for GI bleed. he is feeling very weak and tired today. He does not feel like he can go home. He denies shortness breath, chest pain, palpitations, dizziness, or lightheadedness. He does note that he is having trouble getting up and moving around as this worse amount significantly. His appetite is fair. He ate about half of his lunch. Denies nausea or vomiting. Had a regular bowel movement today without any melena or hematochezia. Denies urinary symptoms. Review of Systems Review of Systems: All systems reviewed & are unremarkable except as noted in HPI and below Exam Narrative: Exam Narrative: Mr. Best is a well-nourished, well-appearing 80-year-old male who is lying semi recumbent in bed. he appears comfortable and is in NARD. Neuro: awake, alert and oriented x4, speech clear, no focal neuro deficits noted HEENMT: normocephalic, atraumatic, EOMI, sclerae anicteric, moist oral mucosa Neck: supple, no lymphadenopathy Respiratory: clear to auscultation bilaterally, nonlabored breathing Cardio: regular rate, regular rhythm with S1-S2 Abdomen: nondistended, normoactive bowel sounds, soft, nontender to palpation Extremities: no edema, erythema, or tenderness to palpation, DP pulses 2+ bilaterally Skin: well-healed scars on left lower extremity, no rashes or lesions, warm and dry Psych: appropriate mood and affect, judgment and insight intact Objective Data Vital Signs Vital Sig
--- NOTE | 2020-10-27 16:05 | WPDGIPROGNO ---
Progress Note: A&P Assessment and Plan (1) Erosive gastritis: Code(s): K29.60 - Other gastritis without bleeding Status: Acute Assessment and Plan: egd findings can explain recent melena in setting of blood thinner and antiplatelets. yesterday received another unit prbc, hb low but stable no more signs of bleeding today he also has underlying chronic anemia, he was on hydrea because thrombocytosis which is on hold now (2) GI bleed: Code(s): K92.2 - Gastrointestinal hemorrhage, unspecified Status: Acute Assessment and Plan: continue with ppi (3) Acute blood loss anemia: Code(s): D62 - Acute posthemorrhagic anemia Status: Acute Assessment and Plan: continue with ppi (4) Hx of intermediate use of blood thinners: Code(s): Z92.29 - Personal history of other drug therapy Status: Acute Assessment and Plan: on hold for now (5) Essential thrombocytosis: Code(s): D47.3 - Essential (hemorrhagic) thrombocythemia Status: Acute Subjective Date/time seen: 10/27/20 16:05 Interval history: had bm without melena, still feeling weak and tired. Review of Systems Review of Systems: All systems reviewed & are unremarkable except as noted in HPI and below Exam Const: General: comfortable and no acute distress HENMT: General nose exam: Normal nares present Eyes: Sclera: sclerae normal Neck: Neck: supple Resp: Auscultation: clear to auscultation bilaterally Cardio: Rate: regular rate GI: Inspection: non-distended GI Palp: Yes Soft to palpation, No Tenderness to palpation present (GI) and Yes Guarding due to palpation present (GI) Skin: Other: pale Neuro: Speech: normal speech Motor exam (neuro): Normal motor muscle tone present throughout Extrem: General: normal to inspection Psych: Mental Status: mental status grossly normal Objective Data Vital Signs Vital Signs: Vital Signs - 24 hr 10/26/20 20:00 10/26/20 21:41 10/27/20 00:00 Temperature 98.9 F Pulse Rate 98 110 H 100 Respiratory Rate 18 Blood Pressure 144/96 H Pulse Oximetry 98 96 10/27/20 03:19 10/27/20 05:43 10/27/20 08:00 Temperature 98.5 F Pulse Rate 98 82 Respiratory Rate 18 Blood Pressure 109/51 L Pulse Oximetry 97 97 10/27/20 09:07 10/27/20 14:00 Temperature 97.6 F Pulse Rate 86 100 Respiratory Rate 16 Blood Pressure 98/44 L Pulse Oximetry 97 Intake/Output Intake/Output: Intake & Output 10/24/20 10/25/20 10/26/20 10/27/20 23:59 23:59 23:59 23:59 Intake Total 500 1390 1890 250 Output Total 350 200 Balance 500 1390 1540 50 Meds/Results Medications: Active Medications Generic Name Dose Route Start Last Admin Trade Name Freq PRN Reason Stop Dose Admin Clopidogrel Bisulfate 75 mg 10/25/20 09:00 10/25/20 08:37 Clopidogrel Bisulfate 75 Mg Tablet PO Not Given DAILY ITA Fenofibrate 145 mg 10/24/20 23:10 10/26/20 20:54 Fenofibrate Nanocrystallized 145 Mg Tablet PO 145 mg HS ITA Administration Finasteride 5 mg 10/25/20 09:00 10/27/20 09:07 Finasteride 5 Mg Tablet PO 5 mg DAILY ITA Administration Sodium Chloride 500 mls @ 500 mls/hr 10/27/20 15:20 Normal Saline Iv IV CONT 10/27/20 16:19 .Q1H ONE Metoprolol Succinate 50 mg 10/27/20 09:00 10/27/20 09:07 Metoprolol Succinate Ext Rel 50 Mg Tabcr PO 50 mg DAILY ITA Administration Ondansetron HCl 4 mg 10/24/20 15:57 10/24/20 17:21 Ondansetron Inj 4 Mg/2 Ml Vial IV PUSH 4 mg Q4H PRN Administration Nausea Pantoprazole Sodium 40 mg 10/25/20 21:00 10/27/20 09:08 Pantoprazole 40 Mg Tablet PO 40 mg Q12HR ITA Administration Tamsulosin HCl 0.4 mg 10/24/20 23:10 10/26/20 20:54 Tamsulosin Hcl 0.4 Mg Capsule PO 0.4 mg HS ITA Administration Radiology Results: ITS Impressions Chest X-Ray 10/24/20 14:16 IMPRESSION: Prominent elevation left leaf of diaphragm with associated mi
[2020-10-27] MEDS: SODIUM CHLORIDE 0.9% IV 500 ML IV CONT (17:12)
[2020-10-27 18:38] LABS: Hematocrit 24.8 % (42.0-52.0)
[2020-10-27] MEDS: TAMSULOSIN HCL 0.4 MG CAPSULE PO (21:15)
[2020-10-27] MEDS: FENOFIBRATE NANOCRYSTALLIZED 145 MG TABLET PO (21:15)
[2020-10-27 23:21] LABS: Hematocrit 25.4 % (42.0-52.0); Hemoglobin 8.1 g/dL (14.0-18.0)
[2020-10-28 06:00] VITALS: BP 118/70; PULSE 70; RESP 16; TEMP 36.8; O2SAT 97
[2020-10-28 06:36] LABS: Hematocrit 26.3 % (42.0-52.0); Hemoglobin 8.2 g/dL (14.0-18.0)
[2020-10-28 06:49] LABS: Anion Gap 6 mmol/L (8-16); Blood Urea Nitrogen 10 mg/dL (9-20); Calcium 8.2 mg/dL (8.4-10.2); Carbon Dioxide 25 mmol/L (22-30); Chloride 105 mmol/L (98-107); Estimated CRCL calculation 60 ml/min; Estimated Glomerular Filt Rate > 60; Glucose 111 mg/dL (65-110); Potassium 3.5 mmol/L (3.4-5.0); Sodium 136 mmol/L (137-145)
[2020-10-28] MEDS: PANTOPRAZOLE 40 MG TABLET PO ×2 (09:04→22:26)
[2020-10-28] MEDS: FINASTERIDE 5 MG TABLET PO (09:04)
[2020-10-28 12:02] LABS: Hematocrit 25.5 % (42.0-52.0); Hemoglobin 8.1 g/dL (14.0-18.0)
--- NOTE | 2020-10-28 13:18 | WPDGIPROGNO ---
Progress Note: A&P Assessment and Plan (1) Erosive gastritis: Code(s): K29.60 - Other gastritis without bleeding Status: Acute Assessment and Plan: egd findings can explain recent melena in setting of blood thinner and antiplatelets. hb low but stable since last blood transfusion, no more report of bleeding he also has underlying chronic anemia and hydrea is on hold (he has h/o thrombocytosis) plan is to go to rehab soon (2) GI bleed: Code(s): K92.2 - Gastrointestinal hemorrhage, unspecified Status: Acute Assessment and Plan: no more bleeding continue with ppi (3) Acute blood loss anemia: Code(s): D62 - Acute posthemorrhagic anemia Status: Acute Assessment and Plan: continue with ppi repeat hb as outpatient (4) Hx of rodent exterminator use of blood thinners: Code(s): Z92.29 - Personal history of other drug therapy Status: Acute Assessment and Plan: on hold for now ok to resume plavix today, eliquis in 5 days (will need follow-up with vascular physician) (5) Essential thrombocytosis: Code(s): D47.3 - Essential (hemorrhagic) thrombocythemia Status: Acute Subjective Date/time seen: 10/28/20 13:18 Interval history: feeling stronger today Review of Systems Review of Systems: All systems reviewed & are unremarkable except as noted in HPI and below Exam Const: General: comfortable and no acute distress HENMT: General nose exam: Normal nares present Eyes: Sclera: sclerae normal Neck: Neck: supple Resp: Auscultation: clear to auscultation bilaterally Cardio: Rate: regular rate GI: Inspection: non-distended GI Palp: Yes Soft to palpation, No Tenderness to palpation present (GI) and Yes Guarding due to palpation present (GI) Skin: Other: pale Neuro: Speech: normal speech Motor exam (neuro): Normal motor muscle tone present throughout Extrem: General: normal to inspection Psych: Mental Status: mental status grossly normal Objective Data Vital Signs Vital Signs: Vital Signs - 24 hr 10/27/20 14:00 10/27/20 16:00 10/27/20 22:00 Temperature 97.6 F 98.9 F Pulse Rate 100 90 94 Respiratory Rate 16 16 Blood Pressure 98/44 L 119/75 Pulse Oximetry 97 94 10/28/20 06:00 Temperature 98.2 F Pulse Rate 70 Respiratory Rate 16 Blood Pressure 118/70 Pulse Oximetry 97 Intake/Output Intake/Output: Intake & Output 10/25/20 10/26/20 10/27/20 10/28/20 23:59 23:59 23:59 23:59 Intake Total 1390 1890 250 560 Output Total 350 200 600 Balance 1390 1540 50 -40 Meds/Results Medications: Active Medications Generic Name Dose Route Start Last Admin Trade Name Kristan PRN Reason Stop Dose Admin Clopidogrel Bisulfate 75 mg 10/25/20 09:00 10/25/20 08:37 Clopidogrel Bisulfate 75 Mg Tablet PO Not Given DAILY ITA Fenofibrate 145 mg 10/24/20 23:10 10/27/20 21:15 Fenofibrate Nanocrystallized 145 Mg Tablet PO 145 mg HS ITA Administration Finasteride 5 mg 10/25/20 09:00 10/28/20 09:04 Finasteride 5 Mg Tablet PO 5 mg DAILY ITA Administration Metoprolol Succinate 50 mg 10/27/20 09:00 10/27/20 09:07 Metoprolol Succinate Ext Rel 50 Mg Tabcr PO 50 mg DAILY ITA Administration Ondansetron HCl 4 mg 10/24/20 15:57 10/24/20 17:21 Ondansetron Inj 4 Mg/2 Ml Vial IV PUSH 4 mg Q4H PRN Administration Nausea Pantoprazole Sodium 40 mg 10/25/20 21:00 10/28/20 09:04 Pantoprazole 40 Mg Tablet PO 40 mg Q12HR ITA Administration Tamsulosin HCl 0.4 mg 10/24/20 23:10 10/27/20 21:15 Tamsulosin Hcl 0.4 Mg Capsule PO 0.4 mg HS ITA Administration Radiology Results: ITS Impressions Chest X-Ray 10/24/20 14:16 IMPRESSION: Prominent elevation left leaf of diaphragm with associated mild atelectasis at the left lung base Labs Labs: Laboratory Results - last 24 hr 10/27/20 10/27/20 10/28/20 18:34 22:46 05:58 Hgb 8.0 L 8.1 L 8.2 L Hct 24.8 L
[2020-10-28 14:00] VITALS: BP 102/61; PULSE 98; RESP 16; TEMP 36.4; O2SAT 97
[2020-10-28] MEDS: CLOPIDOGREL BISULFATE 75 MG TABLET PO (14:12)
--- NOTE | 2020-10-28 17:53 | PM.IMPN ---
Progress Note: A&P Assessment and Plan (1) Anemia: Code(s): D64.9 - Anemia, unspecified Status: Acute Assessment and Plan: Acute on chronic with baseline typically around 12.0. Acute anemia likely secondary to GI bleed. He was transfused a total of 2 units pRBC Hgb 8.2 today Transfuse as needed with hemoglobin threshold <7.0 (2) GI bleed: Code(s): K92.2 - Gastrointestinal hemorrhage, unspecified Status: Acute Assessment and Plan: Underwent EGD on 10/25 which showed gastritis and duodenal ulcer without evidence of active bleeding, but likely explains melena and anemia, especially when considering his use of blood thinners and antiplatelets. Continue Protonix b.i.d. Recommended per GI to hold Eliquis for 7 days. Discussed with pt's vascular surgeon NEWSWRITER at Dr. Ulrich's office who agrees with holding Eliquis in light of bleed. resume on 11/01/2020 will resume his Plavix Today. Discussed with GI and his vascular surgeon. can plan to resume aspirin tomorrow if H&H remained stable No further episodes of melena. (3) Essential thrombocytosis: Code(s): D47.3 - Essential (hemorrhagic) thrombocythemia Status: Acute Assessment and Plan: Established with simonizer Dr. Boles Platelet count has normalized today Discussed with NEWSWRITER at hematology office. will continue to hold hydroxyurea until follow-up with their office scheduled for 11/11/2020 repeat CBC with diff in 1 week with results to Dr. Dominga Lopez (4) Hypertension: Code(s): I10 - Essential (primary) hypertension Status: Chronic Assessment and Plan: blood pressure reviewed and has been running on the lower end. Last BP 102/61. Continue to hold metoprolol and lisinopril monitor BP trends (5) Atrial fibrillation: Code(s): I48.91 - Unspecified atrial fibrillation Status: Chronic Assessment and Plan: Rate is controlled. Eliquis on hold given GI bleed. resume on 11/01 Hold metoprolol Subjective Date/time seen: 10/28/20 17:53 Interval history: date of service: 10/27/2020 Fadi Best is an 80-year-old male with a history of peripheral vascular disease and atrial fibrillation on chronic anticoagulation, myelodysplastic disease, CVA, hyperlipidemia, and hypertension who is seen in follow-up for GI bleed. He is still feeling fatigued but has improved today. No shortness breath, dizziness, lightheadedness, chest pain, palpitations. No further episodes of melena or hematochezia. Planned for discharge to [facility] today, however later learned that they are no longer allowing visitors due to COVID restriction, therefore the patient and his family decided they do not wish to go there. We will keep him in the hospital tonight and determine appropriate discharge plan tomorrow when more resources are available. unsure if he will wish to go to another facility or consider home health. If he does want another facility, we will need to obtain authorization and acceptance Review of Systems Review of Systems: All systems reviewed & are unremarkable except as noted in HPI and below Exam Narrative: Exam Narrative: Mr. Best is a well-nourished, well-appearing 80-year-old male who is lying semi recumbent in bed. he appears comfortable and is in NARD. Neuro: awake, alert and oriented x4, speech clear, no focal neuro deficits noted HEENMT: normocephalic, atraumatic, EOMI, sclerae anicteric, moist oral mucosa Neck: supple, no lymphadenopathy Respiratory: clear to auscultation bilaterally, nonlabored breathing Cardio: regular rate, regular rhythm with S1-S2 Abdomen: nondistended, normoactive bowel sounds, soft, nontender to palpation Extremities: no edema, erythema, or tenderness to palpation, DP pulses 2+ bilaterally Skin: well-healed scars on left lower extremity, no rashes or lesions, warm and dry Psych:
--- NOTE | 2020-10-28 18:48 | PCCCNOTE ---
clinicals faxed to [facility]
--- NOTE | 2020-10-28 19:36 | PCCCNOTE ---
spoke with Maribel at [facility]. There is a bed available for the patient but unfortunately [facility] authorize placement before they closed for the evening
[2020-10-28 21:49] VITALS: BP 119/56; PULSE 114; RESP 18; TEMP 36.8; O2SAT 97
[2020-10-28] MEDS: TAMSULOSIN HCL 0.4 MG CAPSULE PO (22:26)
[2020-10-28] MEDS: FENOFIBRATE NANOCRYSTALLIZED 145 MG TABLET PO (22:26)
[2020-10-29 05:42] VITALS: BP 100/65; PULSE 117; RESP 18; TEMP 36.8; O2SAT 95
[2020-10-29 07:15] LABS: Hematocrit 25.4 % (42.0-52.0); Mean Corpuscular HGB Conc 31.5 g/dl (32-36); Mean Corpuscular Hemoglobin 38.1 pg (26-34); Mean Platelet Volume 11.9 fl (7.4-10.4); Platelet Count Result 389 k/mm3 (150-375); Red Cell Distribution Width 25.2 % (11.5-14.5); White Blood Count 10.2 K/mm3 (4.5-10.0)
[2020-10-29 07:23] LABS: Anion Gap 2 mmol/L (8-16); Blood Urea Nitrogen 11 mg/dL (9-20); Calcium 8.2 mg/dL (8.4-10.2); Carbon Dioxide 29 mmol/L (22-30); Chloride 104 mmol/L (98-107); Estimated CRCL calculation 51 ml/min; Estimated Glomerular Filt Rate 58; Glucose 98 mg/dL (65-110); Potassium 3.9 mmol/L (3.4-5.0); Sodium 135 mmol/L (137-145)
[2020-10-29 08:00] VITALS: O2SAT 100
[2020-10-29] MEDS: CLOPIDOGREL BISULFATE 75 MG TABLET PO (08:30)
[2020-10-29] MEDS: FINASTERIDE 5 MG TABLET PO (08:30)
[2020-10-29] MEDS: PANTOPRAZOLE 40 MG TABLET PO ×2 (08:30→20:50)
[2020-10-29 11:07] VITALS: O2SAT 97
[2020-10-29 14:00] VITALS: BP 95/61; PULSE 97; RESP 16; TEMP 37.8; O2SAT 96
[2020-10-29] MEDS: ASPIRIN 81 MG ENTERIC TABLET PO (14:19)
--- NOTE | 2020-10-29 15:56 | PC.NURSE ---
Patient awaiting on insurance to finalize paperwork. Patient okayed to be discharge by insurance on 10/29/2020 around 1400. [employer] and career [employer] working on completing the process.
--- NOTE | 2020-10-29 15:58 | P.PNIM_ITS ---
Progress Note: A&P Assessment and Plan (1) Anemia: Code(s): D64.9 - Anemia, unspecified Status: Acute Assessment and Plan: Acute on chronic with baseline typically around 12.0. Acute anemia likely secondary to GI bleed. * He was transfused a total of 2 units pRBC * Hgb 8.0 today * Transfuse as needed with hemoglobin threshold <7.0 (2) GI bleed: Code(s): K92.2 - Gastrointestinal hemorrhage, unspecified Status: Acute Assessment and Plan: Underwent EGD on 10/25 which showed gastritis and duodenal ulcer without evidence of active bleeding, but likely explains melena and anemia, especially when considering his use of blood thinners and antiplatelets. * Continue Protonix b.i.d. * Recommended per GI to hold Eliquis for 7 days. Discussed with pt's vascular surgeon COTTON TIER at Dr. Ulrich's office who agrees with holding Eliquis in light of bleed. Resume on 11/01/2020 * Plavix and aspirin have been resumed * No further episodes of melena. (3) Essential thrombocytosis: Code(s): D47.3 - Essential (hemorrhagic) thrombocythemia Status: Acute Assessment and Plan: Established with supervisor fur floor worker Dr. Boles * Platelet count 389 today * Discussed with COTTON TIER at hematology office. Will continue to hold hydroxyurea until follow-up with their office scheduled for 11/11/2020 * repeat CBC with diff in 1 week with results to Dr. Boles (4) Hypertension: Code(s): I10 - Essential (primary) hypertension Status: Chronic Assessment and Plan: Blood pressure reviewed and has been running on the lower end. Last BP 108/72 * Continue to hold metoprolol and lisinopril * monitor BP trends (5) Atrial fibrillation: Code(s): I48.91 - Unspecified atrial fibrillation Status: Chronic Assessment and Plan: Rate is controlled. * Eliquis on hold given GI bleed. resume on 11/01 * Hold metoprolol given low BP. (6) Discharge planning issues: Code(s): Z02.9 - Encounter for administrative examinations, unspecified Status: Acute Assessment and Plan: Plan for discharge on 10/28/2020 to [facility], however visitor restrictions were placed and patient decided to pursue alternative placement. Opted for [facility] and still awaiting authorization. * Hopeful discharge tomorrow (7) Fever: Code(s): R50.9 - Fever, unspecified Status: Acute Assessment and Plan: while awaiting placement, the patient developed a fever of 100.0. * Etiology for this is unclear and he has no other signs or symptoms of acute infection * will check a UA. There was trace leuk est on UA from 10/24 * will also check a chest x-ray. He did have some coughing this afternoon after drinking water, saying it went down the wrong way * monitor temperature and vital signs * check CBC with diff tomorrow morning Subjective Date/time seen: 10/29/20 15:58 Interval history: date of service: 10/29/2020 Fadi Best is an 80-year-old male with a history of peripheral vascular disease and atrial fibrillation on chronic anticoagulation, myelodysplastic disease, CVA, hyperlipidemia, and hypertension who is seen in follow-up for GI bleed. He is feeling better today and having a little bit more energy. He is starting to eat more. He was going to go to [facility] today, but unfortunately authorization was still not received, therefore will hopefully plan for discharge tomorrow. He denies cathy
--- NOTE | 2020-10-29 15:58 | PM.IMPN ---
Progress Note: A&P Assessment and Plan (1) Anemia: Code(s): D64.9 - Anemia, unspecified Status: Acute Assessment and Plan: Acute on chronic with baseline typically around 12.0. Acute anemia likely secondary to GI bleed. He was transfused a total of 2 units pRBC Hgb 8.0 today Transfuse as needed with hemoglobin threshold <7.0 (2) GI bleed: Code(s): K92.2 - Gastrointestinal hemorrhage, unspecified Status: Acute Assessment and Plan: Underwent EGD on 10/25 which showed gastritis and duodenal ulcer without evidence of active bleeding, but likely explains melena and anemia, especially when considering his use of blood thinners and antiplatelets. Continue Protonix b.i.d. Recommended per GI to hold Eliquis for 7 days. Discussed with pt's vascular surgeon AGING ROOM HAND at Dr. Ulrich's office who agrees with holding Eliquis in light of bleed. Resume on 11/01/2020 Plavix and aspirin have been resumed No further episodes of melena. (3) Essential thrombocytosis: Code(s): D47.3 - Essential (hemorrhagic) thrombocythemia Status: Acute Assessment and Plan: Established with pouncer Dr. Boles Platelet count 389 today Discussed with AGING ROOM HAND at hematology office. Will continue to hold hydroxyurea until follow-up with their office scheduled for 11/11/2020 repeat CBC with diff in 1 week with results to Dr. Boles (4) Hypertension: Code(s): I10 - Essential (primary) hypertension Status: Chronic Assessment and Plan: Blood pressure reviewed and has been running on the lower end. Last BP 108/72 Continue to hold metoprolol and lisinopril monitor BP trends (5) Atrial fibrillation: Code(s): I48.91 - Unspecified atrial fibrillation Status: Chronic Assessment and Plan: Rate is controlled. Eliquis on hold given GI bleed. resume on 11/01 Hold metoprolol given low BP. (6) Discharge planning issues: Code(s): Z02.9 - Encounter for administrative examinations, unspecified Status: Acute Assessment and Plan: Plan for discharge on 10/28/2020 to [facility], however visitor restrictions were placed and patient decided to pursue alternative placement. Opted for [facility] and still awaiting authorization. Hopeful discharge tomorrow (7) Fever: Code(s): R50.9 - Fever, unspecified Status: Acute Assessment and Plan: while awaiting placement, the patient developed a fever of 100.0. Etiology for this is unclear and he has no other signs or symptoms of acute infection will check a UA. There was trace leuk est on UA from 10/24 will also check a chest x-ray. He did have some coughing this afternoon after drinking water, saying it went down the wrong way monitor temperature and vital signs check CBC with diff tomorrow morning Subjective Date/time seen: 10/29/20 15:58 Interval history: date of service: 10/29/2020 Fadi Best is an 80-year-old male with a history of peripheral vascular disease and atrial fibrillation on chronic anticoagulation, myelodysplastic disease, CVA, hyperlipidemia, and hypertension who is seen in follow-up for GI bleed. He is feeling better today and having a little bit more energy. He is starting to eat more. He was going to go to [facility] today, but unfortunately authorization was still not received, therefore will hopefully plan for discharge tomorrow. He denies shortness of breath, cough, chest pain, nausea, vomiting, fever, chills, dizziness, lightheadedness, diarrhea, urinary symptoms, dizziness, lightheadedness. he is ambulating to the bathroom and feeling stronger. Review of Systems Review of Systems: All systems reviewed & are unremarkable except as noted in HPI and below Exam Narrative: Exam Narrative: Mr. Best is a well-nourished, well-appearing 80-year-old male who is sitting
[2020-10-29 16:51] VITALS: BP 108/72
[2020-10-29] MEDS: FENOFIBRATE NANOCRYSTALLIZED 145 MG TABLET PO (20:50)
[2020-10-29] MEDS: TAMSULOSIN HCL 0.4 MG CAPSULE PO (20:50)
[2020-10-29 21:56] VITALS: BP 117/72; PULSE 107; RESP 20; TEMP 36.8; O2SAT 97
[2020-10-30 05:22] LABS: Add Urine Microscopic? YES; Appearance Urine Clear (Clear); Bilirubin Urine Negative (Negative); Blood Urine Negative (Negative); Color Urine Yellow (Yellow); Glucose Urine UA Negative (Negative); Ketones Urine Negative (Negative); Leukocyte Esterase Ur Negative LEU/UL (Negative); Mucus Urine Rare /lpf; Nitrate Urine Negative (Negative); Protein Urine Negative (Negative); RBC Urine 0-2 /hpf (0-2); Specific Grav Ur 1.019 (1.001-1.035); Squamous Epithelial Cell Urine Rare /hpf (Few); WBC Urine 0-3 /hpf
[2020-10-30 05:41] VITALS: BP 118/72; PULSE 87; RESP 20; TEMP 36.6; O2SAT 96
[2020-10-30 06:53] LABS: Hematocrit 23.9 % (42.0-52.0); Hemoglobin 7.7 g/dL (14.0-18.0); Mean Corpuscular HGB Conc 32.2 g/dl (32-36); Mean Corpuscular Hemoglobin 37.6 pg (26-34); Mean Corpuscular Volume 116.6 fl (80-100); Mean Platelet Volume 11.8 fl (7.4-10.4); Platelet Count Result 412 k/mm3 (150-375); Red Blood Count 2.05 M/mm3 (4.6-6.20); Red Cell Distribution Width 24.4 % (11.5-14.5); White Blood Count 6.7 K/mm3 (4.5-10.0)
[2020-10-30 07:16] LABS: Anion Gap 3 mmol/L (8-16); Blood Urea Nitrogen 15 mg/dL (9-20); Calcium 8.1 mg/dL (8.4-10.2); Carbon Dioxide 29 mmol/L (22-30); Chloride 104 mmol/L (98-107); Estimated CRCL calculation 51 ml/min; Estimated Glomerular Filt Rate 58; Glucose 91 mg/dL (65-110); Potassium 3.7 mmol/L (3.4-5.0); Sodium 136 mmol/L (137-145)
[2020-10-30] MEDS: CLOPIDOGREL BISULFATE 75 MG TABLET PO (08:14)
[2020-10-30] MEDS: FINASTERIDE 5 MG TABLET PO (08:15)
[2020-10-30] MEDS: PANTOPRAZOLE 40 MG TABLET PO (08:15)
[2020-10-30 10:00] VITALS: TEMP 36.6
--- NOTE | 2020-10-30 17:27 | PM.DS ---
DS: Admitting Diagnosis Admitting Diagnosis GI bleed DS: Discharge Diagnosis Discharge Diagnosis (1) GI bleed: Code(s): K92.2 - Gastrointestinal hemorrhage, unspecified Status: Acute Assessment and Plan: P resented with melena and ongoing fatigue. Underwent EGD on 10/25 which showed gastritis and duodenal ulcer without evidence of active bleeding, but likely explains melena and anemia, especially when considering his use of blood thinners and antiplatelets. Started on Protonix, he will continue b.i.d. Recommended per GI to hold Eliquis for 7 days. Discussed with pt's vascular surgeon PHARMACY RESOURCE TECH at Dr. Ulrich's office who agrees with holding Eliquis in light of bleed. Resume on 11/01/2020 Plavix and aspirin initially held for bleed have been resumed No further episodes of melena following EGD (2) Anemia: Code(s): D64.9 - Anemia, unspecified Status: Acute Assessment and Plan: Acute on chronic with baseline typically around 12.0. Acute anemia secondary to GI bleed. He was transfused a total of 2 units pRBC. Hgb stabilized following transfusion. Repeat H&H in 1 week to ensure remaining stable (3) Essential thrombocytosis: Code(s): D47.3 - Essential (hemorrhagic) thrombocythemia Status: Acute Assessment and Plan: Established with account planner Dr. Boles. Discussed case with PHARMACY RESOURCE TECH at hematology office. Will continue to hold hydroxyurea until follow-up with their office scheduled for 11/11/2020. Repeat CBC with diff in 1 week with results to Dr. Boles (4) Hypertension: Code(s): I10 - Essential (primary) hypertension Status: Chronic Assessment and Plan: Blood pressure reviewed and were in the low-normal range. Lisinopril was held and BP remained stable off medications. Follow-up with PCP for BP monitoring. metoprolol continued for rate control. (5) Atrial fibrillation: Code(s): I48.91 - Unspecified atrial fibrillation Status: Chronic Assessment and Plan: Rate remained controlled. Continue metoprolol with close monitoring of BP at facility. Eliquis on hold given GI bleed with plans to resume 11/01/2020. (6) Discharge planning issues: Code(s): Z02.9 - Encounter for administrative examinations, unspecified Status: Acute Assessment and Plan: Planned for discharge on 10/28/2020 to [facility], however visitor restrictions were placed and patient decided to pursue alternative placement. Opted for [facility] with authorization received 10/30 (7) Fever: Code(s): R50.9 - Fever, unspecified Status: Acute Assessment and Plan: While awaiting placement, the patient had a single episode of elevated temperature at 100.0?. fever resolved without treatment. May have been an erroneous reading. He had no acute signs/symptoms to suggest acute infection. CXR repeated, concerning for atelectasis but no s/sx to suggest pneumonia. Incentive spirometer provided. UA repeated without concerns for infection. Remained afebrile nearly 24 hours. DS: Summary Hospital Course Hospital Course: Date of admission: 10/24/2020 Date of discharge: 10/30/2020 Fadi Best is an 80-year-old male with a history of peripheral vascular disease and atrial fibrillation on chronic anticoagulation, essential thrombocytosis, CVA, hyperlipidemia, and hypertension who presented to the emergency department on 10/24/2020 from home with complaints of weakness and fatigue ongoing for a few weeks. Upon presentation to the emergency department, his blood pressure was low at 80 4/55, HR 108, additional vital signs stable and he was afebrile, WBC 5.6, hemoglobin 7.7, hematocrit 23.9, platelets 641, electrolytes stable, and CXR with mild atelectasis. He was admitted to the hospitalist service for further evaluation management was seen in consultation by Gastroenterology. Please see above for further details. Source of bl
== END 2020-10-30 11:20 | DRG 378 ==
LOC: ANHED 15:01 → ANH3MEDSUR 16:26
PROVIDERS: Emergency Medicine; Internal Medicine Gastroenterology; Nurse Practitioner; Physician Assistant; Admitting Provider Internal Medicine; Emergency Provider Emergency Medicine; PCP Internal Medicine; Visit Provider Internal Medicine
PROC: 0DJ08ZZ Inspection of Upper Intestinal Tract, Via Natural or Artificial Opening Endoscopic (ICD-10-PCS; CPT 43235; principal; 2020-10-25 11:30)
DX: K29.01 Acute gastritis with bleeding (principal); I48.20 Chronic atrial fibrillation, unspecified; D62 Acute posthemorrhagic anemia; C94.6 Myelodysplastic disease, not elsewhere classified; K26.0 Acute duodenal ulcer with hemorrhage; N40.0 Benign prostatic hyperplasia without lower urinary tract symptoms; I10 Essential (primary) hypertension; E78.5 Hyperlipidemia, unspecified; I73.9 Peripheral vascular disease, unspecified; D47.3 Essential (hemorrhagic) thrombocythemia; Z86.718 Personal history of other venous thrombosis and embolism; Z86.73 Personal history of transient ischemic attack (TIA), and cerebral infarction without residual deficits; Z87.891 Personal history of nicotine dependence; Z79.01 Long term (current) use of anticoagulants
CPT/HCPCS: 36415; 36430; 71046; 80048; 80053; 81001; 82948; 83605; 83690; 83735; 84439; 84443; 84480; 85014; 85018; 85025; 85027; 86850; 86900; 86901; 86920; 87040; 88305; 93005; 96361; 96374; 97110; 97116; 97161; 97165; 97530; 99285; A9270; G0378; J2405; J2704; J7030; J7040; J7050; J7120; P9016

== ENCOUNTER 2020-11-24 09:23 | Outpatient (CLI) | payer MEDICARE, SELFPAY ==
--- NOTE | ~2020-11-24 | XR_ITS ---
XR chest 2V 11/24/2020 09:50 Indication: Follow-up infiltrates Procedure: PA and lateral views of the chest Comparison: 10/30/2019 Findings: There is atherosclerosis and ectasia of the aorta. There is elevation of the left diaphragm . There is left basilar atelectasis. No significant effusion, edema, pneumothorax. No acute osseous a bnormality. Borderline heart size. Impression: 1: Elevation of the left diaphragm with underlying compressive atelectasis. Reviewed, dictated and finalized at location A. Impression: 1: Elevation of the left diaphragm with underlying compressive atelectasis.
== END 2020-11-24 09:24 | disposition home or self-care (01) ==
PROVIDERS: PCP Internal Medicine; Visit Provider Internal Medicine
DX: R93.89 Abnormal findings on diagnostic imaging of other specified body structures (principal); J98.11 Atelectasis
CPT/HCPCS: 71046

== ENCOUNTER 2021-12-13 10:08 | Outpatient (CLI) | payer MEDICARE, SELFPAY ==
[2021-12-13 11:39] LABS: Basophils Absolute Auto 0.1 K/mm3 (0.0-0.1); Basophils Percent Auto 0.8 % (0.2-1.2); Eosinophils Absolute Auto 0.2 K/mm3 (0-0.3); Eosinophils Percent Auto 1.9 % (0-4.4); Hematocrit 36.3 % (42.0-52.0); Hemoglobin 11.1 g/dL (14.0-18.0); Immature Granulocyte Absolute 0.21 K/mm3 (0.00-0.031); Lymphocytes Absolute Auto 1.04 K/mm3 (0.9-3.2); Lymphocytes Percent Auto 10.1 % (18.3-44.2); Mean Corpuscular HGB Conc 30.6 g/dl (32-36); Mean Corpuscular Hemoglobin 37.2 pg (26-34); Mean Corpuscular Volume 121.8 fl (80-100); Mean Platelet Volume 11.7 fl (7.4-10.4); Monocytes Percent Auto 19.7 % (2.6-8.5); Neutrophils Absolute Auto 6.7 K/mm3 (1.3-6.7); Neutrophils Percent Auto 65.5 % (45.5-73.1); Nucleated Red Blood Cells Perc 0.4 % (0.0-0.2); Platelet Count Result 1156 k/mm3 (150-375); Red Blood Count 2.98 M/mm3 (4.6-6.20); Red Cell Distribution Width 16.7 % (11.5-14.5); White Blood Count 10.3 K/mm3 (4.5-10.0)
[2021-12-13 11:54] LABS: Alanine Aminotransferase 16 U/L (6-50); Albumin Level 3.4 g/dL (3.5-5.1); Alkaline Phosphatase 74 U/L (38-126); Anion Gap 8 mmol/L (8-16); Aspartate Amino Transferase 33 U/L (17-59); Bilirubin,Total 0.5 mg/dL (0.2-1.3); Blood Urea Nitrogen 21 mg/dL (9-20); Calcium 8.9 mg/dL (8.4-10.2); Carbon Dioxide 27 mmol/L (22-30); Chloride 104 mmol/L (98-107); Creatine Kinase 41 U/L (55-170); Estimated Glomerular Filt Rate 58; Glucose 99 mg/dL (65-110); Potassium 3.9 mmol/L (3.4-5.0); Sodium 139 mmol/L (137-145)
[2021-12-13 13:03] LABS: Platelet Estimate Increased (Adequate)
[2021-12-13 13:04] LABS: Anisocytosis 1+ (NORMAL); Microcytosis 1+ (NORMAL); Ovalocytes 1+ (NORMAL); Tear Drop Cells 1+ (NORMAL)
[2021-12-16 10:45] LABS: Aldolase 6.8 U/L (<=8.1)
[2021-12-20 10:09] LABS: Anti Centromere B Antibody <1.0
[2021-12-20 10:22] LABS: RNP Antibodies <1.0
[2021-12-20 11:03] LABS: JO 1 Antibody <1.0; Scleroderma 70 Antibody <1.0
== END 2021-12-13 10:09 | disposition home or self-care (01) ==
LOC: ANHLAB 10:16
PROVIDERS: PCP Internal Medicine
DX: M33.12 Other dermatomyositis with myopathy (principal)
CPT/HCPCS: 36415; 80053; 82085; 82550; 85025; 86235

== ENCOUNTER 2021-12-26 15:31 | Outpatient (CLI) | payer MEDICARE, SELFPAY ==
--- NOTE | ~2021-12-26 | CT_ITS ---
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 TECHNIQUE: Computed tomography (CT) of the neck was performed with 100 mL Omnipaque-350 intravenous c ontrast. Automated exposure control and iterative reconstruction technique were employed. The dose-le ngth product was 610.67 mGy-cm. COMPARISON: Head CT 12/26/2021 FINDINGS: There are old infarcts in the bilateral cerebellum and right occipital lobe. There is an 8 mm nodule in perihilar right lung upper lobe. A calcified left lung nodule and calcified hilar lymph nodes are consistent with old granulomatous disease. Partially visualized is mild left hilar lymphade nopathy. The contrast in the pulmonary arteries but has not yet reached the systemic arterial system, and there is almost no contrast in the neck. There is a 7 mm mass in right cheek abutting the skin t hat may be a sebaceous cyst. There is a 2.5 x 2.2 cm subcutaneous mass in left posterior neck. There is no lymphadenopathy in the neck. There is mild mucosal thickening in the paranasal sinuses. There i s a trace right mastoid effusion. There is severe cervical spondylosis. IMPRESSION: 1. 2.5 x 2.2 cm subcutaneous mass in left posterior neck, which may be benign or malignant. 2. 8 mm nodule in right lung upper lobe suspicious for primary bronchogenic carcinoma or metastatic d isease. 3. Partially visualized left hilar lymphadenopathy. Chest CT with contrast is recommended. Reviewed, dictated and finalized at location A. IMPRESSION: 1. 2.5 x 2.2 cm subcutaneous mass in left posterior neck, which may be benign o r malignant. 2. 8 mm nodule in right lung upper lobe suspicious for primary bronchogenic car cinoma or metastatic disease. 3. Partially visualized left hilar lymphadenopathy. Chest CT with contrast is r ecommended.
--- NOTE | ~2021-12-26 | CT_ITS ---
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 The mA was adjusted according to patient size. Iterative reconstruc tion technique was employed. Exam dose: 756.67 mGy-cm total exam DLP. COMPARISON: None FINDINGS: Bilateral vertebral artery and carotid siphon internal carotid artery calcifications. No in tracranial mass lesion or hemorrhage or cerebrovascular accident is detected. Old right occipital infarct. Chronic infarct in the inferolateral aspect of the left cerebellar hemis phere. There is nonspecific diminished attenuation of the cerebral white matter, likely due to chroni c small vessel ischemic change. Moderately prominent central and cortical cerebral and cerebellar volume loss. No subdural or epidural hematoma is detected. Approximately 1.7 cm deep 2.1 cm wide soft tissue mass lesion within the subcutaneous tissues in the upper medial left symphysis posterior cervical area. No fracture or bone destruction of the cranial vault. IMPRESSION: Medial upper left posterior cervical subcutaneous soft tissue mass lesion, very possibly malignant Cerebral atherosclerosis and chronic small vessel ischemic changes of the cerebral white matter Old right occipital infarct Chronic left cerebellar hemispheric infarct No acute intracranial finding Reviewed, dictated and finalized at Location A. Reviewed, dictated and finalized at location B. IMPRESSION: Medial upper left posterior cervical subcutaneous soft tissue mass lesion, very possibly malignant Cerebral atherosclerosis and chronic small vessel ischemic changes of the cereb ral white matter Old right occipital infarct Chronic left cerebellar hemispheric infarct No acute intracranial finding
== END 2021-12-26 15:32 | disposition home or self-care (01) ==
PROVIDERS: PCP Internal Medicine
DX: C44.92 Squamous cell carcinoma of skin, unspecified (principal); C44.321 Squamous cell carcinoma of skin of nose; C44.320 Squamous cell carcinoma of skin of unspecified parts of face; R22.1 Localized swelling, mass and lump, neck; M47.812 Spondylosis without myelopathy or radiculopathy, cervical region; Z86.73 Personal history of transient ischemic attack (TIA), and cerebral infarction without residual deficits
CPT/HCPCS: 70470; 70491; Q9967

== ENCOUNTER 2022-04-13 18:04 | Inpatient (IN) | payer MEDICARE, SELFPAY ==
--- NOTE | ~2022-04-13 | XR_ITS ---
EXAMINATION: XR chest 1V portable DATE: 04/17/2022 10:23 INDICATION: Cough and shortness of breath. TECHNIQUE: A single frontal view of the chest was obtained. COMPARISON: Chest single view 04/15/2022, chest CT 04/16/2022 FINDINGS: There are airspace opacities in all lung zones bilaterally. There is a small left pleural e ffusion. No pneumothorax. Cardiomegaly is noted. IMPRESSION: 1. Stable diffuse lung disease, consistent with pneumonia. 2. Small left pleural effusion. 3. Cardiomegaly. Reviewed, dictated and finalized at location A. UNITY HEALTH AGENT
--- NOTE | ~2022-04-13 | CT_ITS ---
EXAMINATION: CT brain wo con DATE: 04/20/2022 17:40 INDICATION: Confusion TECHNIQUE: Computed tomography (CT) of the head was performed without intravenous contrast. The mA wa s adjusted according to patient size. Iterative reconstruction technique was employed. Exam dose: 68 1.00 mGy-cm total exam DLP. COMPARISON: 12/26/2021 CT brain FINDINGS: There is vertebral and bilateral carotid siphon internal carotid artery calcification. T here is nonspecific diminished attenuation of the cerebral white matter, likely due to chronic small vessel ischemic changes. There is an old right occipital infarct. No intracranial mass lesion or hemorrhage or recent cerebrovascular accident. No midline shift or ma ss effect. No subdural or epidural hematoma. There is central and cortical cerebral and cerebellar volume loss. There is prominent soft tissue thickening of right maxillary and ethmoid sinuses. There is minimal m ucoperiosteal thickening of the remaining paranasal sinuses. IMPRESSION: Cerebral atherosclerosis and chronic small vessel ischemic changes of the cerebral white matter Old right occipital cerebrovascular accident Reviewed, dictated and finalized at Location A. Reviewed, dictated and finalized at location A. RMATION SYSTEMS SECURITY MANAGER
--- NOTE | ~2022-04-13 | XR_ITS ---
EXAMINATION: XR chest 1V portable DATE: 04/20/2022 12:40 INDICATION: Shortness of breath TECHNIQUE: frontal view of the chest was obtained. COMPARISON: Chest radiograph dated 04/17/2022 FINDINGS: No significant interval change in patchy airspace opacities throughout both lungs relatively sparing the apices. Small left pleural effusion. No pneumothorax. Cardiomegaly. IMPRESSION: 1. Unchanged diffuse bilateral lung disease consistent with pneumonia or pulmonary edema. 2. Small left pleural effusion. 3. Cardiomegaly. Reviewed, dictated and finalized at location A. O RIDER IMPRESSION: 1. Unchanged diffuse bilateral lung disease consistent with pneumonia or pulmon armen edema. 2. Small left pleural effusion. 3. Cardiomegaly.
--- NOTE | ~2022-04-13 | XR_ITS ---
EXAMINATION: XR barium swallow modified DATE: 04/16/2022 09:28 INDICATION: Dysphagia. TECHNIQUE: The patient was given barium-containing material of multiple consistencies to swallow by t shannan speech pathologist while I performed fluoroscopy. Fluoroscopy exposure time was 2.8 minutes. The n umber of fluoroscopy images saved to the PACS was 1. Dose-area product was 2.793 Gy-cm^2. FINDINGS: There is reduced laryngeal elevation, reduced tongue base retraction, and vallecular residue. There i s laryngeal penetration with thin liquids via straw. IMPRESSION: 1. Laryngeal penetration with thin liquids via straw. 2. Please refer to the speech therapy report for recommendations. Reviewed, dictated and finalized at location A. LE BOX MAKER
--- NOTE | ~2022-04-13 | CT_ITS ---
EXAMINATION: CTA chest PE protocol DATE: 04/16/2022 15:27 INDICATION: Shortness of breath, COVID 19 positive TECHNIQUE: Computed tomography angiography (CTA) of the chest was performed with 100 mL Omnipaque-350 intravenous contrast timed to evaluate the pulmonary arteries. Coronal maximum intensity projection 3D-reconstructions were created by the technologist. The dose-length product (DLP) was 816.40 mGy-cm. Automated exposure control and iterative reconstruction technique were employed. COMPARISON: 04/13/2022 FINDINGS: The pulmonary arteries are well-opacified. There are pulmonary arterial filling defects in the right upper lobe. Respiratory motion artifact somewhat limits evaluation for additional pulmonary emboli. Cardiomegaly is noted. There is mediastinal lymphadenopathy. There are multifocal, predomina ntly dependent airspace opacities of the lungs. There are trace pleural effusions. No pneumothorax is identified. Cysts of the partially imaged kidneys measure up to 8.7 cm on the right. There are also cysts of the liver. There is moderate thoracic spondylosis. IMPRESSION: 1. Pulmonary embolus in the right upper lobe. These findings were discussed with Adamaris in the IMU a t 1548 hours on 04/16/2022. 2. Diffuse lung disease, consistent with COVID 19 pneumonia. 3. Cardiomegaly. 4. Mild mediastinal lymphadenopathy, likely reactive. Reviewed, dictated and finalized at location B. ZER LABORATORY TECHNICIAN IMPRESSION: 1. Pulmonary embolus in the right upper lobe. These findings were discussed wit anita Bailon in the IMU at 1548 hours on 04/16/2022. 2. Diffuse lung disease, consistent with COVID 19 pneumonia. 3. Cardiomegaly. 4. Mild mediastinal lymphadenopathy, likely reactive.
--- NOTE | ~2022-04-13 | US_ITS ---
EXAMINATION: US venous doppler [facility] DATE: 04/18/2022 13:42 INDICATION: Shortness of breath TECHNIQUE: Morris scale images without and with compression and Doppler images of the bilateral lower e xtremity veins were obtained. COMPARISON: None FINDINGS: The right common femoral vein, profunda femoral vein, femoral vein, popliteal vein, peroneal trunk, p osterior tibial veins, and greater saphenous vein are patent. The left common femoral vein, profunda femoral vein, femoral vein, popliteal vein, peroneal trunk, po sterior tibial veins, and greater saphenous vein are patent. IMPRESSION: 1. Patent bilateral lower extremity veins. No evidence of deep venous thrombosis. Reviewed, dictated and finalized at location B. RDING STUDIO SETUP WORKER IMPRESSION: 1. Patent bilateral lower extremity veins. No evidence of deep venous thrombosi s.
--- NOTE | ~2022-04-13 | US_ITS ---
EXAMINATION: US venous doppler [facility] DATE: 04/18/2022 13:44 INDICATION: Shortness of breath and pulmonary embolism TECHNIQUE: Grayscale images without and with compression and Doppler images of the bilateral upper ex tremity veins were obtained. COMPARISON: None. FINDINGS: The right internal jugular vein, subclavian vein, axillary vein, brachial vein, basilic vein, cephali c vein, radial vein, and ulnar vein are patent. The left internal jugular vein, subclavian vein, axillary vein, brachial vein, basilic vein, cephalic vein, radial vein, and ulnar vein are patent. IMPRESSION: 1. Patent bilateral upper extremity veins. No evidence of venous thrombosis. Reviewed, dictated and finalized at location A. SOLE LAYER
--- NOTE | ~2022-04-13 | CT_ITS ---
EXAMINATION: CTA chest PE protocol DATE: 04/13/2022 19:08 CELLARS SUPERVISOR INDICATION: Covid. Altered mental status. Hypoxia. TECHNIQUE: Computed tomographic angiography (CTA) of the chest was performed with 100 mL Omnipaque-35 0 intravenous contrast. The dose-length product was 640.91 mGy-cm. Maximum intensity projection 3D-re constructions of the aorta and other arteries were constructed by the technologist on a separate work station. Automated exposure control and iterative reconstruction technique were employed. COMPARISON: Chest dated 11/24/2020. FINDINGS: Study is technically adequate without evidence for pulmonary embolism. There is mediastinal and hilar lymphadenopathy, likely reactive. Small left pleural effusion. There is atherosclerosis of the aorta. Cardiomegaly. There is patchy airspace disease throughout both lungs, consistent with pne umonia. There is splenomegaly. There are multiple bilateral renal cysts. There is severe thoracic spo ndylosis. No focal lytic or blastic lesions. IMPRESSION: 1. Patchy bilateral airspace disease, consistent with pneumonia involving all lobes. 2: No evidence for pulmonary embolism. 3: Mediastinal and hilar lymphadenopathy, likely reactive. Reviewed, dictated and finalized at location A. ARS SUPERVISOR IMPRESSION: 1. Patchy bilateral airspace disease, consistent with pneumonia involving all l obes. 2: No evidence for pulmonary embolism. 3: Mediastinal and hilar lymphadenopathy, likely reactive.
--- NOTE | ~2022-04-13 | CT_ITS ---
Clinical Indication: Leukocytosis, thrombocytosis CT Scan of the Chest, Abdomen, and Pelvis without Contrast: Technique: Contiguous sections were acquired throughout the chest, abdomen, and pelvis without IV con trast administration. Dose reduction technique was used on this scan by utilizing automated exposure control and iterative reconstruction technique. The dose-length product (DLP) was 1790.98 mGy-cm. COMPARISON: Chest CT dated 04/16/2022 Findings: There is no evidence of any significant mediastinal, hilar or axillary lymphadenopathy. The mediastin al soft tissues appear normal. No pericardial effusion. Small bilateral pleural effusions are present with mild bibasilar atelectatic change. There is additi onal patchy consolidation and groundglass opacity throughout the aerated lungs, similar to prior exam . The liver, pancreas, gallbladder, and adrenal glands are within normal limits. Multiple bilateral merlyn al cysts are present. Splenomegaly noted. No evidence of aortic aneurysm. No lymphadenopathy. No bowel obstruction or bowel wall thickening. Sigmoid diverticulosis noted. There is extensive intra muscular hematoma throughout the left iliopsoas muscle. Left iliopsoas muscle belly is enlarged, alexandro uring up to approximately 10.0 x 7.9 cm in extent due to extensive intramuscular hematoma at the francisco c fossa. There is additional extensive hematoma extending throughout the left retroperitoneum, somewh at displacing the left kidney anteriorly. There is probable additional element of hematoma about the proximal left femur with associated soft tissue infiltration. Tiny amount of air present in the urinary bladder. Prostate gland mildly enlarged. Impression: Extensive intramuscular hematoma throughout the left iliopsoas muscle, with additional extensive left retroperitoneal hematoma and probable additional hematoma about the proximal left femur. Patchy consolidation groundglass opacity throughout the lungs is similar to prior exam, suggestive of pulmonary edema. Correlate clinically for infection. Small bilateral pleural effusions. Splenomegaly. Case discussed with Dr. Villegas at 6:40 AM on 04/24/2022. Reviewed, dictated and finalized at location M. UITING INTERN Impression: Extensive intramuscular hematoma throughout the left iliopsoas muscle, with add itional extensive left retroperitoneal hematoma and probable additional hematom a about the proximal left femur. Patchy consolidation groundglass opacity throughout the lungs is similar to joe or exam, suggestive of pulmonary edema. Correlate clinically for infection. Small bilateral pleural effusions. Splenomegaly. Case discussed with Dr. Villegas at 6:40 AM on 04/24/2022.
--- NOTE | ~2022-04-13 | XR_ITS ---
XR chest 1V portable 04/15/2022 08:47 Indication: Cough. Altered mental status. Procedure: AP portable chest Comparison: 11/24/2020 Findings: Cardiomegaly. Diffuse bilateral airspace disease. No pneumothorax. Blunting left lateral co stophrenic recess. Shallow inspiration. Impression: 1: Diffuse bilateral airspace disease which may represent pneumonia or edema. 2: Cardiomegaly. Reviewed, dictated and finalized at location A. CAL RECORDS CUSTODIAN Impression: 1: Diffuse bilateral airspace disease which may represent pneumonia or edema. 2: Cardiomegaly.
[2022-04-13 17:59] VITALS: BP 147/98; PULSE 115; RESP 22; TEMP 36.4; O2SAT 94
--- NOTE | 2022-04-13 18:08 | ECG_ITS ---
Measurements Intervals [place] Rate: 121 P: VA: 0 QRS: 23 QRSD: 94 T: 29 QT: 330 QTc: 469 Interpretive Statements ATRIAL FIBRILLATION WITH RAPID VENTRICULAR RESPONSE ABNORMAL ECG COMPARED TO ECG 10/24/2020 13:44:37 HEART RATE HAS INCREASED Electronically Signed On 04-14-2022 9:40:04 CONTOUR GRINDER by Lex Anna D.O.
--- NOTE | 2022-04-13 18:19 | ED.AMS ---
HPI - Altered Mental Status General Chief Complaint: Altered Mental Status Stated Complaint: AMS, FEVER, COVID + YEST Time Seen by Provider: 04/13/22 18:05 History of Present Illness HPI narrative: Patient is an 81-year-old male with a history of A. fib, hypertension, hyperlipidemia presenting with altered mental status. Patient is coming from a nursing facility. He was noted to be COVID-positive yesterday. Today, he was noted to be more lethargic than normal as well as slightly disoriented. He is reportedly A&O x4 and today he was A&O x3. Currently, patient is A&O x3. States that he has pain at his IV sites but he otherwise denies any pain. States that he has felt short of breath for the last day. He denies headache, chest pain, lightheadedness, abdominal pain, vomiting, diarrhea, dysuria, leg swelling. States he is fully vaccinated for COVID-19. Related Data Home Medications Medication Instructions Recorded Confirmed apixaban 5 mg tablet (Eliquis) 5 mg PO BID 10/24/20 04/14/22 aspirin 81 mg tablet,delayed 81 mg PO DAILY 10/24/20 04/14/22 release (Elsie Low Dose Aspirin) clopidogrel 75 mg tablet 75 mg PO DAILY 10/24/20 04/14/22 fenofibrate nanocrystallized 145 145 mg PO HS 10/24/20 04/14/22 mg tablet finasteride 5 mg tablet 5 mg PO DAILY 10/24/20 04/14/22 hydroxyurea 500 mg capsule 1,000 mg PO BID 10/24/20 04/14/22 metoprolol succinate 50 mg 50 mg PO DAILY 10/24/20 04/14/22 tablet,extended release 24 hr tamsulosin 0.4 mg capsule 0.4 mg PO DAILY 10/24/20 04/14/22 acetaminophen 325 mg tablet 325 mg PO TID PRN Pain (Scale 04/14/22 04/14/22 Score 1-3) ascorbic acid (vitamin C) 1,000 mg 1,000 mg PO DAILY 04/14/22 04/14/22 tablet atorvastatin 20 mg tablet 20 mg PO DAILY 04/14/22 04/14/22 cholecalciferol (vitamin D3) 25 25 mcg PO DAILY 04/14/22 04/14/22 mcg (1,000 unit) tablet ferrous sulfate 325 mg (65 mg 325 mg PO BID 04/14/22 04/14/22 iron) tablet (FeroSul) fluticasone propionate 50 1 spray intranasal BID 04/14/22 04/14/22 mcg/actuation nasal spray,suspension hydrocodone 5 mg-acetaminophen 325 1 tablet PO BID PRN Moderate Pain 04/14/22 04/14/22 mg tablet (Scale Score 5-6) ipratropium 0.5 mg-albuterol 3 mg 3 ml inhalation QID PRN Wheezing 04/14/22 04/14/22 (2.5 mg base)/3 mL nebulization soln levothyroxine 50 mcg tablet 50 mcg PO DAILY 04/14/22 04/14/22 lorazepam 0.5 mg tablet 0.5 mg PO BID 04/14/22 04/14/22 mirtazapine 15 mg tablet 15 mg PO DAILY 04/14/22 04/14/22 multivit with minerals-iron 18 1 tablet PO DAILY 04/14/22 04/14/22 mg-folic ac 400 mcg-vit K 25 mcg tablet (Adults Multivitamin) trazodone 50 mg tablet 50 mg PO HS 04/14/22 04/14/22 vit C 250 mg-vit E 90 mg-zinc 40 1 cap PO BID 04/14/22 04/14/22 mg-copper 1 [id number] capsule (PreserVision AREDS-2) zinc sulfate 220 mg capsule 200 mg PO DAILY 04/14/22 04/14/22 Allergies Allergy/AdvReac Type Severity Reaction Status Date / Time No Known Allergies Allergy Verified 04/13/22 19:53 Review of Systems Review of Systems: All systems reviewed & are unremarkable except as noted in HPI and below PMFSH Past Medical History Medical History Acute blood loss anemia Arterial occlusion, lower extremity Atrial fibrillation BPH (benign prostatic hyperplasia) CVA (cerebral vascular accident) DVT (deep venous thrombosis) Erosive gastritis Essential thrombocytosis Hx of nursing home use of blood thinners Hyperlipidemia Hypertension Melena Surgical History Surgical History History of appendectomy History of revascularization procedure of lower extremity Family History Family History Unknown No family history of disorders Social History Social History Social History: the patient is a former smoker. The pat
[2022-04-13 18:35] LABS: Basophils Absolute Auto 0.1 K/mm3 (0.0-0.1); Basophils Percent Auto 0.4 % (0.2-1.2); Eosinophils Absolute Auto 0.1 K/mm3 (0-0.3); Eosinophils Percent Auto 0.4 % (0-4.4); Hemoglobin 10.9 g/dL (14.0-18.0); Immature Granulocyte Absolute 0.79 K/mm3 (0.00-0.031); Immature Granulocyte Percent A 4.8 % (0-0.5); Lymphocytes Percent Auto 5.4 % (18.3-44.2); Mean Corpuscular HGB Conc 31.1 g/dl (32-36); Mean Corpuscular Hemoglobin 34.8 pg (26-34); Mean Corpuscular Volume 111.8 fl (80-100); Mean Platelet Volume 11.7 fl (7.4-10.4); Monocytes Absolute Auto 3.2 K/mm3 (0.1-0.6); Monocytes Percent Auto 19.2 % (2.6-8.5); Neutrophils Absolute Auto 11.5 K/mm3 (1.3-6.7); Neutrophils Percent Auto 69.8 % (45.5-73.1); Nucleated Red Blood Cells Absolute Auto 0.1 K/mm3 (0.0-0.012); Nucleated Red Blood Cells Perc 0.7 % (0.0-0.2); Platelet Count Result 1218 k/mm3 (150-375); Red Blood Count 3.13 M/mm3 (4.6-6.20); Red Cell Distribution Width 21.6 % (11.5-14.5); White Blood Count 16.5 K/mm3 (4.5-10.0)
[2022-04-13 18:47] LABS: Alanine Aminotransferase 17 U/L (6-50); Albumin Level 3.5 g/dL (3.5-5.1); Alkaline Phosphatase 93 U/L (38-126); Anion Gap 6 mmol/L (8-16); Aspartate Amino Transferase 43 U/L (17-59); Bilirubin,Total 1.1 mg/dL (0.2-1.3); Blood Urea Nitrogen 17 mg/dL (9-20); Calcium 8.4 mg/dL (8.4-10.2); Carbon Dioxide 26 mmol/L (22-30); Chloride 104 mmol/L (98-107); Estimated CRCL calculation 65 ml/min; Estimated Glomerular Filt Rate > 60; Glucose 101 mg/dL (65-110); Potassium 4.5 mmol/L (3.4-5.0); Sodium 136 mmol/L (137-145)
[2022-04-13 18:57] LABS: Troponin I 0.013 ng/mL (0.000-0.034)
[2022-04-13 19:05] LABS: Platelet Estimate Increased (Adequate)
[2022-04-13 19:06] LABS: Macrocytosis 1+ (NORMAL)
[2022-04-13 19:07] LABS: Hypochromasia 1+ (NORMAL)
[2022-04-13 19:10] LABS: Influenza A QL RT-PCR Negative (Negative); Influenza B QL RT-PCR Negative (Negative); SARS-CoV-2 RNA PCR Positive
[2022-04-13 19:19] LABS: INR 1.8; Prothrombin Time 20.2 Seconds (11.1-14.7)
[2022-04-13 19:20] LABS: Partial Thromboplastin Time 49.8 SECONDS (22.3-36.8)
[2022-04-13 19:58] LABS: Troponin I < 0.012 ng/mL (0.000-0.034)
[2022-04-13 20:01] LABS: Add Urine Microscopic? YES; Appearance Urine Clear (Clear); Bilirubin Urine Negative (Negative); Blood Urine Trace-Intact (Negative); Color Urine Yellow (Yellow); Glucose Urine UA Negative (Negative); Ketones Urine Negative (Negative); Leukocyte Esterase Ur Negative LEU/UL (Negative); Nitrate Urine Negative (Negative); Protein Urine Trace mg/dL (Negative); Urobilinogen Urine 0.2 mg/dL (<2.0); pH Urine 5.5 (5.0-9.0)
[2022-04-13 20:09] LABS: Bacteria Urine Trace /hpf; Mucus Urine Rare /lpf; Squamous Epithelial Cell Urine Rare /hpf (Few); WBC Urine 16-20 /hpf
[2022-04-13] MEDS: SODIUM CHLORIDE 0.9% IV 1,000 ML 999 ML IV CONT (20:38)
--- NOTE | 2022-04-13 21:08 | PM.IMHP ---
H&P: HPI History of Present Illness Date/Time: 04/13/22 21:08 Chief Complaint: Altered mental status Narrative: This is an 81-year-old male patient with a history of AFib, hypertension and hyperlipidemia. The patient presented to the emergency room from a nursing facility where the patient had tested positive yesterday for COVID. Today the patient was more lethargic than normal and slightly confused. Is typically A&O x4. Today his anal x3 the patient tells me that he does feel slightly short of breath especially with exertion. He denies any nausea vomiting or diarrhea. His white count was noted to be 16.5. H&H is 10.9 and 35.0. Troponin negative. COVID test was positive. Chest x-ray was read as 1. Patchy bilateral airspace disease, consistent with pneumonia involving all lobes. 2: No evidence for pulmonary embolism. 3:? Mediastinal and hilar lymphadenopathy, likely reactive. The patient was given IV fluids, IV Cardizem and IV Lopressor was ordered. The patient was admitted to observation status on the date of service 10/21/2022. Review of Systems Review of Systems: See HPI All systems reviewed & are unremarkable except as noted in HPI and below Constitutional: Constitutional: Reports as per HPI and Reports no additional constitutional complaints Eyes: Eyes: Reports as per HPI and Reports no additional eye complaints ENT: Reports system reviewed and no additional complaints, except as documented and Reports Normal hearing present Cardiovascular: Cardiovascular: Reports no additional cardiovascular complaints Respiratory: Respiratory: Reports no additional respiratory complaints and Reports no additional respiratory complaints Gastrointestinal: Gastrointestinal: Reports as per HPI and Reports no additional gastrointestinal complaints Musculoskeletal: Musculoskeletal: Reports no additional musculoskeletal complaints Integumentary/Breasts: Skin/Breast: Reports system reviewed and no additional complaints, except as docu and Reports as per HPI Neurologic: Reports system reviewed and no additional complaints, except as documented, Reports as per HPI and Reports Normal hearing present Psychiatric: Psychiatric: Reports no additional psychiatric complaints and Reports as per HPI Endocrine: Endocrine: Reports no additional endocrine complaints Hematologic/Lymphatic: Hematologic/Lymphatic: Reports no additional hematologic/lymphatic complaints Allergic/Immunologic: Allergic/Immunologic: Reports no additional allergic/immunologic complaints PMFSH Past Medical History Medical History Acute blood loss anemia Arterial occlusion, lower extremity Atrial fibrillation BPH (benign prostatic hyperplasia) CVA (cerebral vascular accident) DVT (deep venous thrombosis) Erosive gastritis Essential thrombocytosis Hx of watermaster use of blood thinners Hyperlipidemia Hypertension Melena Surgical History Surgical History History of appendectomy History of revascularization procedure of lower extremity Family History Family History Unknown No family history of disorders Social History Social History Social History: the patient is a former smoker. The patient used to have his own [employer]. He is retired from that. The patient lives home alone. He has 3 sons. The patient stated that he wants to be a DNR. His sons are the durable power motor block mechanic for healthcare. The patient is since this past Jenna. The patient used to drink heavily when he was younger but no longer drinks any alcohol. Smoking status: Former smoker Alcohol intake: former Substance use: never Gender identity (if verbalized by the patient): Male Spiritual care concerns: No Meds Home Medications and Allergies Giovanny
[2022-04-13 21:15] VITALS: BP 125/80
[2022-04-13 22:12] VITALS: BP 134/86
--- NOTE | 2022-04-13 22:41 | PC.NURSE ---
Report received from TASHA Mcbride. Assumed care of patient at this time.
[2022-04-13 22:57] VITALS: BP 143/99; PULSE 88; RESP 17; TEMP 37.9; O2SAT 96
[2022-04-13 23:53] VITALS: PULSE 106; RESP 19
[2022-04-14] VITALS (39 sets, daily range): BP systolic 115–152; BP diastolic 73–94; PULSE 78–125; RESP 16–25; TEMP 36.4–37.3; O2SAT 93–98
[2022-04-14] MEDS: SODIUM CHLORIDE 0.9% IV 1,000 ML 75 ML IV CONT ×3 (00:04→20:49)
--- NOTE | 2022-04-14 02:22 | PC.NURSE ---
0216 Kalina nurse from [facility] calls to get update and admission diagnosis.
--- NOTE | 2022-04-14 03:49 | PC.NURSE ---
Patient transferred to a hospital bed, a small bedsore noted to patients buttocks.
[2022-04-14 04:45] LABS: Basophils Percent Auto 0.3 % (0.2-1.2); Eosinophils Percent Auto 0.1 % (0-4.4); Hematocrit 31.3 % (42.0-52.0); Hemoglobin 9.8 g/dL (14.0-18.0); Immature Granulocyte Absolute 0.69 K/mm3 (0.00-0.031); Immature Granulocyte Percent A 5.8 % (0-0.5); Lymphocytes Absolute Auto 0.52 K/mm3 (0.9-3.2); Lymphocytes Percent Auto 4.4 % (18.3-44.2); Mean Corpuscular HGB Conc 31.3 g/dl (32-36); Mean Corpuscular Hemoglobin 35.4 pg (26-34); Mean Platelet Volume 11.3 fl (7.4-10.4); Monocytes Absolute Auto 0.9 K/mm3 (0.1-0.6); Monocytes Percent Auto 7.4 % (2.6-8.5); Neutrophils Absolute Auto 9.7 K/mm3 (1.3-6.7); Nucleated Red Blood Cells Perc 0.3 % (0.0-0.2); Platelet Count Result 880 k/mm3 (150-375); Red Blood Count 2.77 M/mm3 (4.6-6.20); White Blood Count 11.9 K/mm3 (4.5-10.0)
[2022-04-14 04:57] LABS: Lactic Acid Reflex 0.9 mmol/L (0.7-2.0)
[2022-04-14 05:01] LABS: Alanine Aminotransferase 15 U/L (6-50); Albumin Level 2.7 g/dL (3.5-5.1); Alkaline Phosphatase 84 U/L (38-126); Anion Gap 3 mmol/L (8-16); Aspartate Amino Transferase 27 U/L (17-59); Bilirubin,Total 1.1 mg/dL (0.2-1.3); Blood Urea Nitrogen 14 mg/dL (9-20); CRP 4.2 mg/dL (<1.0); Calcium 6.9 mg/dL (8.4-10.2); Carbon Dioxide 23 mmol/L (22-30); Chloride 112 mmol/L (98-107); Estimated CRCL calculation 73 ml/min; Estimated Glomerular Filt Rate > 60; Glucose 104 mg/dL (65-110); Lactate Dehydrogenase 290 U/L (120-246); Magnesium 1.5 mg/dL (1.6-2.3); Potassium 3.5 mmol/L (3.4-5.0); Sodium 138 mmol/L (137-145)
[2022-04-14 05:10] LABS: Platelet Estimate Adequate (Adequate); Poikilocytosis 2+ (NORMAL)
[2022-04-14 05:11] LABS: Anisocytosis 1+ (NORMAL); Schistocytes Rare (NORMAL)
--- NOTE | 2022-04-14 06:06 | PC.NURSE ---
This patient, Fadi Best, was admitted to IMU Room 207-01 on 04/14/22 at 0605. Patient/family oriented to hospital policies and general routines including ID bracelet, bed and alarms, visiting hours, pain management, procedures, bathroom and other care routines, personal items, smoking policy, room service/diet, and visiting hours. Information on how to activate the Rapid Response Team has been discussed. Patient/Family are encouraged to report perceived risks to care and to ask questions if they do not understand what they are told or what they should do.
[2022-04-14] MEDS: MAGNESIUM SULF 4 GM/WATER100ML 4 GM/100 ML BAG IVPB (06:21)
--- NOTE | 2022-04-14 09:29 | PM.IMPN ---
Progress Note: A&P Assessment and Plan (1) Pneumonia due to COVID-19 virus: Code(s): U07.1 - COVID-19; J12.82 - Pneumonia due to coronavirus disease 2019 Status: Acute Assessment and Plan: No oxygen requirement 04/14 day 2 dexamethasone Continue supportive care (2) Essential thrombocytosis: Code(s): D47.3 - Essential (hemorrhagic) thrombocythemia Status: Acute Assessment and Plan: Continue home ASA and hydroxyurea Plavix held (3) Atrial fibrillation: Code(s): I48.91 - Unspecified atrial fibrillation Status: Chronic Assessment and Plan: Continue metoprolol ER and Eliquis (4) Hypertension: Code(s): I10 - Essential (primary) hypertension Status: Chronic Assessment and Plan: Continue metoprolol ER (5) BPH (benign prostatic hyperplasia): Code(s): N40.0 - Benign prostatic hyperplasia without lower urinary tract symptoms Status: Chronic Assessment and Plan: Gautam inserted 04/14/22 AM due to frequent (every 5 min) urination 04/13 U/A with mild increase RBC's, WBC's but no nitrates or leukocyte esterase, and only trace bacteria 04/14/22 resumed home tamsulosin and finasteride and consider voiding trial in 48 hours 04/14/22 mucosal lidocaine to urethra for comfort (6) Anemia: Code(s): D64.9 - Anemia, unspecified Status: Acute Assessment and Plan: Hgb 9.8 on 04/14, decreased a bit from baseline Hx Gastritis with GI Bleed 10/2020 On ASA, Plavix, Eliquis 04/14 Held Plavix, continued Protonix, and order stool for occult blood, f/u h/h Subjective Date/time seen: 04/14/22 09:29 Interval history: f/u COVID-19 pneumonia Appetite, tast OK. Still with cough productive of small amounts of clear sputum. KENDRICK. No oxygen requirement. Denied CP, swelling. Denied GI changes. Did have frequent urination, hx BPH with sx's. Doing better after Gautam placed for comfort. Mild urethral burning since Gautam placement. Review of Systems Review of Systems: All systems reviewed & are unremarkable except as noted in HPI and below Exam Narrative: HEENT: PERRL, sclerae nonicteric, pharyngeal mucosa pink and intact NECK: No JVD, adenopathy, or thyromegaly CHEST: Clear to auscultation. Normal effort. HEART: NL S1/S2, irregular, tachy, no murmur ABDOMEN: BS+, soft, nontender, no mass, no bruits EXTREMITIES: No cyanosis, edema, or clubbing NEUROLOGIC: CN intact and symmetric to inspection. MUSCULOSKELETAL: Tone and strength symmetric. PSYCH: Alert. Oriented to person, place, and time. Objective Data Vital Signs Vital Signs: Vital Signs - 24 hr 04/13/22 17:59 04/13/22 21:15 04/13/22 22:12 Temperature 97.6 F Pulse Rate 115 H Respiratory Rate 22 H Blood Pressure 147/98 H 125/80 134/86 Pulse Oximetry 94 Oxygen Delivery Room Air 04/13/22 22:57 04/14/22 00:14 04/14/22 00:44 Temperature 100.3 F H 99.2 F Pulse Rate 88 107 H Respiratory Rate 17 22 H Blood Pressure 143/99 H 130/83 Pulse Oximetry 96 94 Oxygen Delivery 04/13/22 23:53 04/14/22 00:00 04/14/22 00:01 Temperature Pulse Rate 106 H Respiratory Rate 19 23 H 20 Blood Pressure 130/83 Pulse Oximetry Oxygen Delivery 04/14/22 01:01 04/14/22 01:05 04/14/22 01:15 Temperature Pulse Rate Respiratory Rate 19 24 H 20 Blood Pressure 130/73 Pulse Oximetry 95 Oxygen Delivery 04/14/22 01:30 04/14/22 01:45 04/14/22 02:00 Temperature Pulse Rate 122 H Respiratory Rate 25 H 19 Blood Pressure Pulse Oximetry Oxygen Delivery 04/14/22 02:01 04/14/22 02:15 04/14/22 02:42 Temperature Pulse Rate 109 H 105 H Respiratory Rate 17 Blood Pressure 146/89 H 146/89 H Pulse Oximetry 97 Oxygen Delivery 04/14/22 02:45 04/14/22 03:01 04/14/22 03:15 Temperature Pulse Rate 105 H 101 H 107 H Respiratory Rate Blood Pressure 129/83 Pulse Oximetry Oxygen Delivery 04/14
[2022-04-14] MEDS: OPTI-GEN TAB 1 TABLET PO ×2 (10:08→17:39)
[2022-04-14] MEDS: FLUTICASONE PROPIONATE 0.05% NA SPR 16 GM BTL (*BKC) 1 SPRAY NASAL ×2 (10:08→17:39)
[2022-04-14] MEDS: PANTOPRAZOLE 40 MG TABLET PO ×2 (10:08→20:49)
[2022-04-14] MEDS: APIXABAN 5 MG TABLET PO ×2 (10:08→17:35)
[2022-04-14] MEDS: HYDROXYUREA (*CHEMO) 500 MG CAPSULE 1000 MG PO ×2 (10:08→17:37)
[2022-04-14] MEDS: METOPROLOL SUCCINATE EXT REL 50 MG TABCR PO (10:09)
[2022-04-14] MEDS: FINASTERIDE 5 MG TABLET PO (10:09)
[2022-04-14] MEDS: ZINC SULFATE 220 MG CAPSULE PO (10:09)
[2022-04-14] MEDS: MULTIVITAMINS /C LUTEIN (CENTRUM SILVER) TABLET *BKC 1 TAB PO (10:09)
[2022-04-14] MEDS: TAMSULOSIN HCL 0.4 MG CAPSULE PO (10:09)
[2022-04-14] MEDS: ASPIRIN 81 MG ENTERIC TABLET PO (10:10)
[2022-04-14] MEDS: ATORVASTATIN 20 MG TABLET PO (10:10)
[2022-04-14] MEDS: LEVOTHYROXINE SODIUM 50 MCG TABLET PO (10:10)
[2022-04-14] MEDS: CHOLECALCIFEROL 1,000 UNITS TABLET 1000 UNITS PO (10:10)
[2022-04-14] MEDS: ASCORBIC ACID 500 MG TABLET 1000 MG PO (10:10)
[2022-04-14 11:33] LABS: IFOB Positive Control Positive; Immunochemical Fecal Occult Bl Positive (N)
[2022-04-14] MEDS: HYDROcodone/acetaminophen (*CRX) 5-325 MG TABLET 1 TAB PO (14:23)
[2022-04-14] MEDS: FERROUS SULFATE 324 MG TABLET PO (17:34)
[2022-04-14] MEDS: traZODone HCL 50 MG TABLET PO (20:49)
[2022-04-14] MEDS: FENOFIBRATE NANOCRYSTALLIZED 145 MG TABLET PO (20:49)
[2022-04-15] VITALS (21 sets, daily range): BP systolic 105–141; BP diastolic 63–106; PULSE 59–170; RESP 14–28; TEMP 36.4–37.9; O2SAT 90–99
[2022-04-15] MEDS: METOPROLOL TARTRATE INJ 5 MG/5 ML VIAL IV PUSH ×3 (01:34→10:57)
[2022-04-15] MEDS: HYDROcodone/acetaminophen (*CRX) 5-325 MG TABLET 1 TAB PO (01:35)
[2022-04-15 05:15] LABS: Hematocrit 34.3 % (42.0-52.0); Hemoglobin 10.8 g/dL (14.0-18.0); Mean Corpuscular HGB Conc 31.5 g/dl (32-36); Mean Corpuscular Hemoglobin 34.5 pg (26-34); Mean Corpuscular Volume 109.6 fl (80-100); Platelet Count Result 1176 k/mm3 (150-375); Red Blood Count 3.13 M/mm3 (4.6-6.20); Red Cell Distribution Width 21.2 % (11.5-14.5); White Blood Count 22.2 K/mm3 (4.5-10.0)
[2022-04-15 05:32] LABS: Alanine Aminotransferase 19 U/L (6-50); Albumin Level 3.3 g/dL (3.5-5.1); Alkaline Phosphatase 94 U/L (38-126); Anion Gap 6 mmol/L (8-16); Aspartate Amino Transferase 40 U/L (17-59); Bilirubin,Total 0.8 mg/dL (0.2-1.3); Blood Urea Nitrogen 24 mg/dL (9-20); CRP 4.3 mg/dL (<1.0); Calcium 7.7 mg/dL (8.4-10.2); Carbon Dioxide 25 mmol/L (22-30); Chloride 107 mmol/L (98-107); Estimated CRCL calculation 59 ml/min; Estimated Glomerular Filt Rate > 60; Glucose 117 mg/dL (65-110); Potassium 3.9 mmol/L (3.4-5.0); Sodium 138 mmol/L (137-145)
[2022-04-15] MEDS: LEVOTHYROXINE SODIUM 50 MCG TABLET PO (06:33)
[2022-04-15] MEDS: METOPROLOL SUCCINATE EXT REL 100 MG TABCR PO (07:55)
[2022-04-15] MEDS: APIXABAN 5 MG TABLET PO ×2 (07:56→16:19)
--- NOTE | 2022-04-15 08:19 | PC.NURSE ---
Notified Andrea Garcia MAID CLEANING COOKING of patient altered mental status, HR, WBC count, and patient choking on pills. Telephone orders for chest xray, bedside swallow, NPO diet, Blood cultures, UA, ABG, CRP, Lactic, and Vanc and Rochepin ordered. Will continue to monitor per IMU protocol.
[2022-04-15 08:49] LABS: Lactic Acid Reflex 1.8 mmol/L (0.7-2.0)
[2022-04-15 08:53] LABS: CRP 0.9 mg/dL (<1.0)
[2022-04-15] MEDS: cefTRIAXone 2 GM in SODIUM CHLORIDE 0.9% IV 100 ML 200 ML IVPB (09:26)
[2022-04-15 09:52] LABS: Alveolar/Arterial O2 Gradient 75.5 mmHg; Base Excess ABG -0.7 mEq/l (+/-2.0); Fractional Inspired Oxygen 21 %; HCO3 ABG 21.4 mEq/l (22.0-26.0); Oxygen Content ABG 16.1 %vol (16.0-22.0); Oxygen Saturation ABG 96.4 % (95.0-100.0); Oxyhemoglobin 93.6 % THb (90.0-100.0); PCO2 ABG 28.2 mmHg (35.0-45.0); PO2 ABG 76.1 mmHg (80.0-100.0); PO2 FiO2 Ratio Arterial Blood 3.62 %; Total Hemoglobin 12.2 g/dL (12.0-18.0); pH ABG 7.499 (7.350-7.450)
[2022-04-15 09:54] LABS: Device ROOM AIR; Modified Allen's Test Pass; Site Drawn LEFT RADIAL
--- NOTE | 2022-04-15 10:24 | P.PNIM_ITS ---
Progress Note: A&P Assessment and Plan (1) Atrial fibrillation with RVR: Code(s): I48.91 - Unspecified atrial fibrillation Status: Acute Assessment and Plan: * Continue metoprolol 100 mg daily * Gave 1 time order for metoprolol 5 mg IV push now for heart rate greater than 120 * Consulted Cardiology awaiting recommendation thank you for the care this patient. * EKG on admission AFib RVR repeat EKG pending * Continue telemetry * (2) Pneumonia due to COVID-19 virus: Code(s): U07.1 - COVID-19; J12.82 - Pneumonia due to coronavirus disease 2018 Status: Acute Assessment and Plan: * Patient wbc's16.5>11.9>22.2 * Patient febrile * Continue supplementary oxygen as needed * Chest x-ray indicate COVID pneumonia * Blood culture pending * Started Rocephin and vancomycin * Day 2 of dexamethasone * Blood culture pending * Lactic acid within normal limits * CRP 4.2>4.3>0.9 (3) Fever: Code(s): R50.9 - Fever, unspecified Status: Acute Assessment and Plan: * Secondary to COVID pneumonia versus UTI * Continue Tylenol * Blood culture pending (4) Hyperlipidemia: Code(s): E78.5 - Hyperlipidemia, unspecified Status: Chronic Assessment and Plan: * Continue statins (5) Hypertension: Code(s): I10 - Essential (primary) hypertension Status: Chronic Assessment and Plan: * Blood pressure elevated * Will add hydralazine with parameters * Continue metoprolol * Vital signs as ordered * Will adjust medication as needed (6) BPH (benign prostatic hyperplasia): Code(s): N40.0 - Benign prostatic hyperplasia without lower urinary tract symptoms Status: Chronic Assessment and Plan: * Continue Flomax (7) Anemia: Code(s): D64.9 - Anemia, unspecified Status: Acute Assessment and Plan: * Chronic * Continue iron supplements * FOB positive * Hemoglobin hematocrit 10.9/35.0, 9.8/31.3, 10.8/34.3 * No active bleeding noted * Will closely monitor patient * If there are any extreme drops in his hemoglobin hematocrit will consult GI * (8) Swallowing dysfunction: Code(s): R13.10 - Dysphagia, unspecified Status: Acute Assessment and Plan: * Speech therapy recommend modified barium swallow * Patient remain NPO until swallow eval * Started the patient on vancomycin due to possible aspirating pneumonia (9) UTI (urinary tract infection): Code(s): N39.0 - Urinary tract infection, site not specified Status: Acute Assessment and Plan: * UA positive for protein and leukocytes * Blood culture pending * Continue vancomycin Rocephin Subjective Date/time seen: 04/15/22 10:24 Interval history: Received report from nursing staff that patient has had a mental status change and will possibly need a bedside swallow eval. Also received for the patient's white count had increased significantly. During this assessment patient is alert x1 with an ill appearance. Review of Systems Review of Systems: ROS unobtainable: Yes unobtainable due to mental status Exam Narrative: GENERAL: Elderly man with ill appearance, in no apparent distress. HEAD: normocephalic, atraumatic. EYES: PERRL. Sclera clear/white. Vision is grossly intact. EARS: External ears normal, auditory canals clear and without drainage, TMs normal without perforation. Hearing grossly intact. NOSE: External nose normal with no obvious nasal discharge, nares without redness, no rhi
--- NOTE | 2022-04-15 10:24 | PM.IMPN ---
Progress Note: A&P Assessment and Plan (1) Atrial fibrillation with RVR: Code(s): I48.91 - Unspecified atrial fibrillation Status: Acute Assessment and Plan: Continue metoprolol 100 mg daily Gave 1 time order for metoprolol 5 mg IV push now for heart rate greater than 120 Consulted Cardiology awaiting recommendation thank you for the care this patient. EKG on admission AFib RVR repeat EKG pending Continue telemetry (2) Pneumonia due to COVID-19 virus: Code(s): U07.1 - COVID-19; J12.82 - Pneumonia due to coronavirus disease 2018 Status: Acute Assessment and Plan: Patient wbc's16.5>11.9>22.2 Patient febrile Continue supplementary oxygen as needed Chest x-ray indicate COVID pneumonia Blood culture pending Started Rocephin and vancomycin Day 2 of dexamethasone Blood culture pending Lactic acid within normal limits CRP 4.2>4.3>0.9 (3) Fever: Code(s): R50.9 - Fever, unspecified Status: Acute Assessment and Plan: Secondary to COVID pneumonia versus UTI Continue Tylenol Blood culture pending (4) Hyperlipidemia: Code(s): E78.5 - Hyperlipidemia, unspecified Status: Chronic Assessment and Plan: Continue statins (5) Hypertension: Code(s): I10 - Essential (primary) hypertension Status: Chronic Assessment and Plan: Blood pressure elevated Will add hydralazine with parameters Continue metoprolol Vital signs as ordered Will adjust medication as needed (6) BPH (benign prostatic hyperplasia): Code(s): N40.0 - Benign prostatic hyperplasia without lower urinary tract symptoms Status: Chronic Assessment and Plan: Continue Flomax (7) Anemia: Code(s): D64.9 - Anemia, unspecified Status: Acute Assessment and Plan: Chronic Continue iron supplements FOB positive Hemoglobin hematocrit 10.9/35.0, 9.8/31.3, 10.8/34.3 No active bleeding noted Will closely monitor patient If there are any extreme drops in his hemoglobin hematocrit will consult GI (8) Swallowing dysfunction: Code(s): R13.10 - Dysphagia, unspecified Status: Acute Assessment and Plan: Speech therapy recommend modified barium swallow Patient remain NPO until swallow eval Started the patient on vancomycin due to possible aspirating pneumonia (9) UTI (urinary tract infection): Code(s): N39.0 - Urinary tract infection, site not specified Status: Acute Assessment and Plan: UA positive for protein and leukocytes Blood culture pending Continue vancomycin Rocephin Subjective Date/time seen: 04/15/22 10:24 Interval history: Received report from nursing staff that patient has had a mental status change and will possibly need a bedside swallow eval. Also received for the patient's white count had increased significantly. During this assessment patient is alert x1 with an ill appearance. Review of Systems Review of Systems: ROS unobtainable: Yes unobtainable due to mental status Exam Narrative: GENERAL: Elderly man with ill appearance, in no apparent distress. HEAD: normocephalic, atraumatic. EYES: PERRL. Sclera clear/white. Vision is grossly intact. EARS: External ears normal, auditory canals clear and without drainage, TMs normal without perforation. Hearing grossly intact. NOSE: External nose normal with no obvious nasal discharge, nares without redness, no rhinorrhea. THROAT: Mucous membranes moist, posterior pharynx clear. NECK: Neck supple, non-tender without lymphadenopathy, masses or thyromegaly. CARDIOVASCULAR: Regular rate and rhythm without murmurs, gallops, or rubs. RESPIRATORY: Diminished throughout GASTROINTESTINAL: Abdomen soft, non-tender, nondistended. Bowel sounds are active. No hepato-splenomegaly, or palpable masses. No guarding. SKIN: warm, intact with no suspicious lesions or rash, good texture and turgor. NEURO: awake, alert, to self
[2022-04-15 10:33] LABS: Add Urine Microscopic? YES; Appearance Urine Clear (Clear); Bilirubin Urine Negative (Negative); Blood Urine 3+ (Negative); Color Urine Yellow (Yellow); Glucose Urine UA Negative (Negative); Ketones Urine Negative (Negative); Leukocyte Esterase Ur 1+ LEU/UL (Negative); Nitrate Urine Negative (Negative); Protein Urine 2+ mg/dL (Negative); Specific Grav Ur >= 1.030 (1.001-1.035); Urobilinogen Urine 0.2 mg/dL (<2.0); pH Urine 5.5 (5.0-9.0)
--- NOTE | 2022-04-15 10:33 | ECG_ITS ---
Measurements Intervals [place] Rate: 147 P: [place]: 0 QRS: 36 QRSD: 95 T: -14 QT: 304 QTc: 477 Interpretive Statements ATRIAL FIBRILLATION WITH RAPID VENTRICULAR RESPONSE BORDERLINE ST-T WAVE ABNORMALITY- INF/LAT LEADS BASELINE WANDER- I, II, AVR, AVF, V1-V3 ABNORMAL ECG COMPARED TO ECG 04/13/2022 18:11:22 ST (T WAVE) DEVIATION NOW PRESENT Electronically Signed On 04-15-2022 15:04:43 CRAPS MANAGER by Lex Anna D.O.
[2022-04-15 10:37] LABS: Mucus Urine Rare /lpf; RBC Urine 21-50 /hpf (0-2); Squamous Epithelial Cell Urine Rare /hpf (Few); WBC Urine 21-30 /hpf
--- NOTE | 2022-04-15 10:39 | PCSTNOTE ---
Order received for bedside swallowing evaluation. After chart review and consult with nurse patient's physician was called to request an order for a modified barium swallow study, as aspiration is a high risk. Physician stated she will enter order for MBSS and that it can be done tomorrow. Thank you for the referral of this patient.
--- NOTE | 2022-04-15 10:52 | PM.CNCAR ---
Assessment and Plan Assessment and plan (1) Atrial fibrillation with RVR: Code(s): I48.91 - Unspecified atrial fibrillation Status: Acute Assessment and Plan: 81-year-old male with hypertension, atrial fibrillation on anticoagulation with apixaban, PAD, history of ?DVT, history of CVA, hypothyroidism on thyroxine replacement, dyslipidemia. Patient admitted from skilled nursing with altered mental status and shortness of breath, has COVID in 19 pneumonia and respiratory failure. Patient has history of atrial fibrillation, unknown duration. He is currently in atrial fibrillation with RVR in the setting of COVID 19 pneumonia respiratory failure. -continue metoprolol succinate. -add IV diltiazem. Blood pressure is in the hypertensive range at present. If patient's heart rate remains elevated and blood pressure does not allow optimization of IV diltiazem, then add IV amiodarone. DC cardioversion for any hemodynamically unstable AFib with RVR. -continue anticoagulation with apixaban. -continue to monitor on telemetry for now. Patient is DNR. (2) Pneumonia due to COVID-19 virus: Code(s): U07.1 - COVID-19; J12.82 - Pneumonia due to coronavirus disease 2018 Status: Acute Assessment and Plan: Management as per primary team. Patient currently receiving steroids. History of Present Illness History of Present Illness Consult date/time: 04/15/22 10:52 Reason For Visit: A Fib w/RVR Narrative: DATE OF CONSULT: 04/15/2022 REASON FOR CONSULT: AFib with RVR REQUESTING PHYSICIAN:Andrea Garcia FNP-C CHIEF COMPLAINT: Shortness of breath HPI: 81-year-old male with hypertension, atrial fibrillation on anticoagulation with apixaban, PAD, history of ?DVT, history of CVA, hypothyroidism on thyroxine replacement, dyslipidemia. Patient admitted to [facility] on 04/13/2022 from skilled nursing with symptoms of shortness of breath and altered mental status. Patient found to be COVID positive and has hypoxemic respiratory failure. EKG on presentation which I personally evaluated showed atrial fibrillation with RVR, ventricular rate 121 beats per minute. Continue on home dose of metoprolol, however, his heart rates remained elevated in 110s to 120s. Cardiology was consulted. At the time of evaluation, patient was in mild distress. He reported mild shortness of breath, denied ongoing symptoms of chest pain. He was unable to give additional details about his prior cardiac history. Chest x-ray showed diffuse bilateral airspace disease which may represent pneumonia or edeme, cardiomegaly. CT chest showed patchy bilateral airspace disease, consistent with pneumonia involving all lobes, no evidence for pulmonary embolism. Troponins negative, TSH within normal limits. Review of Systems Review of Systems: As per HPI, other comprehensive review of systems difficult to obtain as patient is in distress and unable to provide detailed medical information. I gathered medical information from the patient, review of the chart and from the staff. General: Positive for fatigue Psychological: Positive for anxiety and agitation Ophthalmic: negative for loss of vision ENT: Negative for epistaxis Respiratory: Positive for shortness of breath Cardiovascular: Negative for chest pain Gastrointestinal: Negative vomiting Musculoskeletal: Positive for joint pains Neurological: Positive for weakness Dermatological: Positive for rash PMFSH Past Medical History Medical History Acute blood loss anemia Arterial occlusion, lower extremity Atrial fibrillation BPH (benign prostatic hyperplasia) CVA (cerebral vascular accident) DVT (deep venous thrombosis) Erosive gastritis Essential thrombocytosis 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
--- NOTE | 2022-04-15 10:58 | PCPTNOTE ---
TASHA Castillo, reports the patient is on hold today secondary to concerns about his heart rate, physical therapy will check to see if patient is appropriate tomorrow.
[2022-04-15] MEDS: dilTIAZem 100 MG/100 ML 100 MG/100 ML BAG 10 MG IV CONT (11:41)
[2022-04-15] MEDS: SODIUM CHLORIDE 0.9% IV 1,000 ML 75 ML IV CONT ×2 (11:46→22:23)
[2022-04-15] MEDS: OPTI-GEN TAB 1 TABLET PO (16:18)
[2022-04-15] MEDS: HYDROXYUREA (*CHEMO) 500 MG CAPSULE 1000 MG PO (16:18)
[2022-04-15] MEDS: FERROUS SULFATE 324 MG TABLET PO (16:18)
[2022-04-15] MEDS: FLUTICASONE PROPIONATE 0.05% NA SPR 16 GM BTL (*BKC) 1 SPRAY NASAL (16:18)
[2022-04-15] MEDS: BENZONATATE 100 MG CAPSULE 200 MG PO ×2 (16:19→22:23)
[2022-04-15] MEDS: guaiFENesin 12 HR 600 MG TABCR 1200 MG PO (22:21)
[2022-04-15] MEDS: traZODone HCL 50 MG TABLET PO (22:22)
[2022-04-15] MEDS: FENOFIBRATE NANOCRYSTALLIZED 145 MG TABLET PO (22:22)
[2022-04-15] MEDS: PANTOPRAZOLE 40 MG TABLET PO (22:22)
--- NOTE | 2022-04-15 22:30 | PC.NURSE ---
patient seemed to choke on his medication. patient is stubborn and insisted that he take them all at once. he is alert x1-2. swallow study for tomorrow.
[2022-04-15] MEDS: FLUTICASONE/SALMETEROL 115-21 MCG INHALER 1 PUFF 2 PUFF INHALATION (23:23)
[2022-04-16] VITALS (28 sets, daily range): BP systolic 117–154; BP diastolic 58–96; PULSE 66–147; RESP 19–26; TEMP 36.4–38.7; O2SAT 92–99
[2022-04-16 05:21] LABS: Hematocrit 37.2 % (42.0-52.0); Hemoglobin 11.2 g/dL (14.0-18.0); Immature Platelet Fraction Pct 10.7 % (0.9-11.2); Mean Corpuscular HGB Conc 30.1 g/dl (32-36); Mean Corpuscular Hemoglobin 34.9 pg (26-34); Mean Corpuscular Volume 115.9 fl (80-100); Mean Platelet Volume 12.1 fl (7.4-10.4); Platelet Count Result 1074 k/mm3 (150-375); Red Blood Count 3.21 M/mm3 (4.6-6.20); Red Cell Distribution Width 21.4 % (11.5-14.5); White Blood Count 27.5 K/mm3 (4.5-10.0)
--- NOTE | 2022-04-16 05:24 | ECG_ITS ---
Measurements Intervals [place] Rate: 133 P: [place]: 0 QRS: 37 QRSD: 99 T: -33 QT: 313 QTc: 467 Interpretive Statements ATRIAL FIBRILLATION WITH RAPID VENTRICULAR RESPONSE RSR' IN V1 OR V2, CONSIDER RIGHT VENTRICULAR HYPERTROPHY OR RIGHT VCD NONSPECIFIC T-WAVE ABNORMALITY- ANT/INF LEADS ABNORMAL ECG COMPARED TO ECG 04/15/2022 10:57:46 NO SIGNIFICANT CHANGES Electronically Signed On 04-16-2022 6:44:53 DAY CARE DIRECTOR by Lex Anna D.O.
[2022-04-16 05:34] LABS: Alanine Aminotransferase 25 U/L (6-50); Albumin Level 3.3 g/dL (3.5-5.1); Alkaline Phosphatase 84 U/L (38-126); Anion Gap 4 mmol/L (8-16); Aspartate Amino Transferase 57 U/L (17-59); Bilirubin,Total 0.8 mg/dL (0.2-1.3); Blood Urea Nitrogen 26 mg/dL (9-20); CRP 6.4 mg/dL (<1.0); Calcium 8.1 mg/dL (8.4-10.2); Carbon Dioxide 28 mmol/L (22-30); Chloride 107 mmol/L (98-107); Estimated CRCL calculation 59 ml/min; Estimated Glomerular Filt Rate > 60; Glucose 101 mg/dL (65-110); Potassium 4.5 mmol/L (3.4-5.0); Sodium 139 mmol/L (137-145)
--- NOTE | 2022-04-16 05:35 | PC.NURSE ---
patients heart rate increased into the 170's with stimuli from turning and pulling up in bed. took patient a while to recover heart rate dropped into the 110's to 130's. dr sal is aware.
[2022-04-16] MEDS: HYDROcodone/acetaminophen (*CRX) 5-325 MG TABLET 1 TAB PO ×2 (06:03→23:39)
[2022-04-16] MEDS: METOPROLOL TARTRATE INJ 5 MG/5 ML VIAL IV PUSH ×4 (06:51→23:53)
[2022-04-16] MEDS: FLUTICASONE/SALMETEROL 115-21 MCG INHALER 1 PUFF 2 PUFF INHALATION ×2 (08:44→21:33)
--- NOTE | 2022-04-16 09:52 | PCPTNOTE ---
Attempted PT evaluation, pt refused stating I'm tired and not right now. RN aware. Will Follow.
[2022-04-16] MEDS: cefTRIAXone 2 GM in SODIUM CHLORIDE 0.9% IV 100 ML 200 ML IVPB (09:58)
[2022-04-16] MEDS: dilTIAZem 100 MG/100 ML 100 MG/100 ML BAG IV CONT (09:58)
--- NOTE | 2022-04-16 10:10 | PM.PNCARD ---
Progress Note: A&P Assessment and Plan (1) Atrial fibrillation with RVR: Code(s): I48.91 - Unspecified atrial fibrillation Status: Acute Assessment and Plan: 81-year-old male with hypertension, atrial fibrillation on anticoagulation with apixaban, PAD, history of ?DVT, history of CVA, hypothyroidism on thyroxine replacement, dyslipidemia. Patient admitted from long term with altered mental status and shortness of breath, has COVID in 19 pneumonia and respiratory failure. Patient has history of atrial fibrillation, unknown duration. He is currently in atrial fibrillation with RVR in the setting of COVID 19 pneumonia respiratory failure. -Shift IV diltiazem to IV amiodarone. -Continue metoprolol succinate with holdinf parameters -DC cardioversion for any hemodynamically unstable AFib with RVR. -continue anticoagulation with apixaban. -continue to monitor on telemetry for now. Patient is DNR. (2) Pneumonia due to COVID-19 virus: Code(s): U07.1 - COVID-19; J12.82 - Pneumonia due to coronavirus disease 2018 Status: Acute Assessment and Plan: Management as per primary team. Patient currently receiving steroids. Subjective Date/time seen: 04/16/22 10:10 Cardiology follow up for atrial fibrillation Remains in rapid atrial fibrillation this morning on diltiazem drip. Unable to obtain any history from patient, he is confused, not answering questions appropriately Exam Const: General: no acute distress, confusion and uncomfortable; No alert or awake Orientation/consciousness: No patient oriented x3, confusion and lethargic HENMT: Head: normal to inspection Eyes: General: appearance normal, both eyes and all related structures Pupils: Equal, round and reactive pupils present Neck: Neck: normal visual inspection, supple and no JVD Carotids: normal carotid upstroke Resp: Effort & Inspection: normal respiratory effort Auscultation: clear to auscultation bilaterally Cardio: Rate: tachycardic Rhythm: abnormal rhythm Heart sounds: S1 normal heart sound present, S2 normal heart sound present and no murmurs GI: Auscultation: normal bowel sounds Urinary Catheter: Urinary Catheter: patent and draining Skin: General skin exam: normal color Neuro: General: patient oriented x3 Cranial nerves: Yes Equal, round and reactive pupils present Extrem: General: normal to inspection Psych: Appearance: grossly normal Mental Status: mental status grossly abnormal Objective Data Vital Signs Vital Signs: Vital Signs - 24 hr 04/15/22 10:57 04/15/22 11:51 04/15/22 12:00 Temperature Pulse Rate 160 H 122 H Respiratory Rate Blood Pressure Pulse Oximetry 94 Oxygen Delivery Nasal Cannula Oxygen Flow Rate 2 04/15/22 12:00 04/15/22 14:00 04/15/22 16:00 Temperature 36.5 C Pulse Rate 112 H 89 76 Respiratory Rate 28 H Blood Pressure 127/94 H Pulse Oximetry 94 Oxygen Delivery Oxygen Flow Rate 04/15/22 16:00 04/15/22 16:00 04/15/22 18:21 Temperature 36.7 C Pulse Rate 78 77 Respiratory Rate 24 H Blood Pressure 113/76 Pulse Oximetry 97 97 Oxygen Delivery Nasal Cannula Oxygen Flow Rate 2 04/15/22 20:33 04/15/22 20:00 04/15/22 20:00 Temperature 36.4 C L Pulse Rate 61 59 L 59 L Respiratory Rate 20 20 Blood Pressure 117/77 Pulse Oximetry 97 97 Oxygen Delivery Nasal Cannula Oxygen Flow Rate 2 04/15/22 23:24 04/15/22 22:00 04/15/22 23:40 Temperature 36.8 C Pulse Rate 87 74 77 Respiratory Rate 14 20 Blood Pressure 105/63 Pulse Oximetry 99 Oxygen Delivery Oxygen Flow Rate 04/16/22 00:00 04/16/22 00:00 04/16/22 02:00 Temperature Pulse Rate 66 66 80 Respiratory Rate 20 Blood Pressure Pulse Oximetry 99 Oxygen Delivery Nasal Cannula Oxygen Flow Rate 2 04/16/22 04:00 04/16/22 04:00 04/16/22 06:00 Temperature Pulse Rate 99 99 135 H Respiratory Rate 20 Blood Pressure Pulse Oximet
[2022-04-16] MEDS: FLUTICASONE PROPIONATE 0.05% NA SPR 16 GM BTL (*BKC) 1 SPRAY NASAL ×2 (10:21→17:09)
--- NOTE | 2022-04-16 10:42 | PC.NURSE ---
0900: pt drowsy, arousable to voice, follows commands, oriented to person and place. tolerated drinking moderately thick liquid, refused to take any morning PO medication.
[2022-04-16] MEDS: ACETAMINOPHEN 325 MG TABLET PO ×2 (12:40→21:31)
--- NOTE | 2022-04-16 14:07 | P.PNIM_ITS ---
Progress Note: A&P Assessment and Plan (1) Atrial fibrillation with RVR: Code(s): I48.91 - Unspecified atrial fibrillation Status: Acute Assessment and Plan: * Continue metoprolol 100 mg daily * Start Amiodarone drip. Cardizem drip was discontinued. * Cardiology is managing. * Keep in IMU * Telemetry * DNR (2) Sepsis: Qualifiers: Sepsis type: sepsis due to unspecified organism Sepsis acute organ dysfunction status: without acute organ dysfunction Qualified Code(s): A41.9 - Sepsis, unspecified organism Code(s): A41.9 - Sepsis, unspecified organism Status: Acute Assessment and Plan: - Not meeting severe sepsis or shock criteria. - As evidenced by temperature, WBC count, Tachycardia, Tachypnea - Given patient's current dx of COVID-19, and his PNA with now worsening condition overall, CTA PE protocol is ordered as I am unable to exclude him using the PERC rule. (3) Pneumonia due to COVID-19 virus: Code(s): U07.1 - COVID-19; J12.82 - Pneumonia due to coronavirus disease 2018 Status: Acute Assessment and Plan: * Patient wbc's16.5>11.9>22.2>27.5 * Patient febrile * Continue supplementary oxygen as needed * Chest x-ray indicate COVID pneumonia * Blood culture pending * Started Rocephin and vancomycin * Day 4 of dexamethasone * Blood culture pending * Lactic acid within normal limits * CRP 4.2>4.3>0.9>6.4 * Meeting Sepsis criteria. (4) Fever: Code(s): R50.9 - Fever, unspecified Status: Acute Assessment and Plan: * Secondary to COVID pneumonia versus UTI * Continue Tylenol * Blood culture pending and preliminarily negative. * Continue IVF. * Meeting Sepsis criteria. NOT SEVERE SEPSIS OR SHOCK. * BP stable at 135/96. Not meeting shock criteria. (5) Hyperlipidemia: Code(s): E78.5 - Hyperlipidemia, unspecified Status: Chronic Assessment and Plan: * Continue statins (6) Hypertension: Code(s): I10 - Essential (primary) hypertension Status: Chronic Assessment and Plan: * Blood pressure elevated * Will add hydralazine with parameters * Continue metoprolol * Vital signs as ordered * Will adjust medication as needed (7) BPH (benign prostatic hyperplasia): Code(s): N40.0 - Benign prostatic hyperplasia without lower urinary tract symptoms Status: Chronic Assessment and Plan: * Continue Flomax (8) Anemia: Code(s): D64.9 - Anemia, unspecified Status: Chronic Assessment and Plan: * Chronic * Continue iron supplements * FOB positive * Hemoglobin hematocrit 10.9/35.0, 9.8/31.3, 10.8/34.3 * No active bleeding noted * Will closely monitor patient * If there are any extreme drops in his hemoglobin hematocrit will consult GI * (9) Swallowing dysfunction: Code(s): R13.10 - Dysphagia, unspecified Status: Acute Assessment and Plan: * Speech therapy recommend modified barium swallow * Patient remain NPO until swallow eval * Started the patient on vancomycin due to possible aspirating pneumonia * MBS demonstrated laryngeal penetration with thin liquids via straw. He may griffin ve a mildly thick liquid, regular diet level 7. (10) UTI (urinary tract infection): Code(s): N39.0 - Urinary tract infection, site not specified Status: Acute Assessment and Plan: * UA positive for protein and leukocytes * Urine culture pending. * Blood culture pending * Continue vancomycin Rocephin Time Spent With Patient Time wit
--- NOTE | 2022-04-16 14:07 | PM.IMPN ---
Progress Note: A&P Assessment and Plan (1) Atrial fibrillation with RVR: Code(s): I48.91 - Unspecified atrial fibrillation Status: Acute Assessment and Plan: Continue metoprolol 100 mg daily Start Amiodarone drip. Cardizem drip was discontinued. Cardiology is managing. Keep in IMU Telemetry DNR (2) Sepsis: Qualifiers: Sepsis type: sepsis due to unspecified organism Sepsis acute organ dysfunction status: without acute organ dysfunction Qualified Code(s): A41.9 - Sepsis, unspecified organism Code(s): A41.9 - Sepsis, unspecified organism Status: Acute Assessment and Plan: - Not meeting severe sepsis or shock criteria. - As evidenced by temperature, WBC count, Tachycardia, Tachypnea - Given patient's current dx of COVID-19, and his PNA with now worsening condition overall, CTA PE protocol is ordered as I am unable to exclude him using the PERC rule. (3) Pneumonia due to COVID-19 virus: Code(s): U07.1 - COVID-19; J12.82 - Pneumonia due to coronavirus disease 2018 Status: Acute Assessment and Plan: Patient wbc's16.5>11.9>22.2>27.5 Patient febrile Continue supplementary oxygen as needed Chest x-ray indicate COVID pneumonia Blood culture pending Started Rocephin and vancomycin Day 4 of dexamethasone Blood culture pending Lactic acid within normal limits CRP 4.2>4.3>0.9>6.4 Meeting Sepsis criteria. (4) Fever: Code(s): R50.9 - Fever, unspecified Status: Acute Assessment and Plan: Secondary to COVID pneumonia versus UTI Continue Tylenol Blood culture pending and preliminarily negative. Continue IVF. Meeting Sepsis criteria. NOT SEVERE SEPSIS OR SHOCK. BP stable at 135/96. Not meeting shock criteria. (5) Hyperlipidemia: Code(s): E78.5 - Hyperlipidemia, unspecified Status: Chronic Assessment and Plan: Continue statins (6) Hypertension: Code(s): I10 - Essential (primary) hypertension Status: Chronic Assessment and Plan: Blood pressure elevated Will add hydralazine with parameters Continue metoprolol Vital signs as ordered Will adjust medication as needed (7) BPH (benign prostatic hyperplasia): Code(s): N40.0 - Benign prostatic hyperplasia without lower urinary tract symptoms Status: Chronic Assessment and Plan: Continue Flomax (8) Anemia: Code(s): D64.9 - Anemia, unspecified Status: Chronic Assessment and Plan: Chronic Continue iron supplements FOB positive Hemoglobin hematocrit 10.9/35.0, 9.8/31.3, 10.8/34.3 No active bleeding noted Will closely monitor patient If there are any extreme drops in his hemoglobin hematocrit will consult GI (9) Swallowing dysfunction: Code(s): R13.10 - Dysphagia, unspecified Status: Acute Assessment and Plan: Speech therapy recommend modified barium swallow Patient remain NPO until swallow eval Started the patient on vancomycin due to possible aspirating pneumonia MBS demonstrated laryngeal penetration with thin liquids via straw. He may have a mildly thick liquid, regular diet level 7. (10) UTI (urinary tract infection): Code(s): N39.0 - Urinary tract infection, site not specified Status: Acute Assessment and Plan: UA positive for protein and leukocytes Urine culture pending. Blood culture pending Continue vancomycin Rocephin Time Spent With Patient Time with patient: 25 - 35 minutes Subjective Date/time seen: 04/16/22 0852 Pt. is examined at the bedside today in interval assessment. He is pleasantly confused and does not answer all questions appropriately. He is able to tell me that he is coughing. He remains in IMU as he is in A-fib RVR. He is Covid +. Review of Systems Review of Systems: ROS unobtainable: Yes unobtainable due to mental status (confused) Exam Narrative: GENERAL: Elderly man with ill appearance, in
[2022-04-16] MEDS: AMIODARONE 150 MG/D5W 100 ML 150 MG/100 ML BAG 600 MG IV CONT (14:24)
[2022-04-16] MEDS: AMIODARONE 360 MG/D5W 200 ML 360 MG/200 ML BAG 33.33 MG IV CONT (14:25)
[2022-04-16] MEDS: SODIUM CHLORIDE 0.9% IV 500 ML IV CONT (15:03)
[2022-04-16 16:19] LABS: Basophils Absolute Auto 0.1 K/mm3 (0.0-0.1); Basophils Percent Auto 0.2 % (0.2-1.2); Hematocrit 32.6 % (42.0-52.0); Hemoglobin 10.1 g/dL (14.0-18.0); Immature Granulocyte Absolute 0.61 K/mm3 (0.00-0.031); Immature Granulocyte Percent A 2.5 % (0-0.5); Lymphocytes Absolute Auto 0.36 K/mm3 (0.9-3.2); Lymphocytes Percent Auto 1.5 % (18.3-44.2); Mean Corpuscular Hemoglobin 35.1 pg (26-34); Mean Corpuscular Volume 113.2 fl (80-100); Mean Platelet Volume 11.9 fl (7.4-10.4); Monocytes Absolute Auto 1.5 K/mm3 (0.1-0.6); Neutrophils Absolute Auto 22.2 K/mm3 (1.3-6.7); Neutrophils Percent Auto 89.8 % (45.5-73.1); Nucleated Red Blood Cells Absolute Auto 0.1 K/mm3 (0.0-0.012); Nucleated Red Blood Cells Perc 0.2 % (0.0-0.2); Platelet Count Result 837 k/mm3 (150-375); Red Blood Count 2.88 M/mm3 (4.6-6.20); Red Cell Distribution Width 21.3 % (11.5-14.5); White Blood Count 24.7 K/mm3 (4.5-10.0)
[2022-04-16 16:31] LABS: Prothrombin Time 21.6 Seconds (11.1-14.7)
[2022-04-16 16:32] LABS: Partial Thromboplastin Time 45.4 SECONDS (22.3-36.8); Platelet Estimate Increased (Adequate)
[2022-04-16 16:33] LABS: Schistocytes Rare (NORMAL)
[2022-04-16 16:34] LABS: Hypochromasia 1+ (NORMAL)
[2022-04-16 16:35] LABS: Anisocytosis 1+ (NORMAL); Macrocytosis 1+ (NORMAL); Poikilocytosis 1+ (NORMAL)
[2022-04-16] MEDS: HEPARIN SODIUM 5,000 UNITS/ML VIAL 7000 UNITS IV PUSH (17:09)
[2022-04-16] MEDS: HEPARIN SOD/D5W 100 UNITS/ML 25,000 UNITS/250 ML BAG 15 UNITS IV CONT (17:09)
[2022-04-16] MEDS: FERROUS SULFATE 324 MG TABLET PO (17:19)
[2022-04-16] MEDS: OPTI-GEN TAB 1 TABLET PO (17:20)
[2022-04-16] MEDS: HYDROXYUREA (*CHEMO) 500 MG CAPSULE 1000 MG PO (17:20)
[2022-04-16] MEDS: SODIUM CHLORIDE 0.9% IV 1,000 ML 75 ML IV CONT (17:40)
--- NOTE | 2022-04-16 19:06 | P.PNCROSS_ITS ---
Event Note Event Note Event Note: At 1600, I received a call from the patient's RN that the result of the patient 's CTA PE protocol resulted positive for RUL PE. Orders were given to start patient on a Heparin drip and to discontinue to Eliquis at this time. Supportive care otherwise.
[2022-04-16] MEDS: AMIODARONE 360 MG/D5W 200 ML 360 MG/200 ML BAG 16.67 MG IV CONT (21:28)
[2022-04-16] MEDS: PANTOPRAZOLE 40 MG TABLET PO (21:29)
[2022-04-16] MEDS: traZODone HCL 50 MG TABLET PO (21:30)
[2022-04-16] MEDS: BENZONATATE 100 MG CAPSULE 200 MG PO (21:30)
[2022-04-16] MEDS: FENOFIBRATE NANOCRYSTALLIZED 145 MG TABLET PO (21:31)
[2022-04-16] MEDS: guaiFENesin 12 HR 600 MG TABCR 1200 MG PO (21:32)
[2022-04-16 23:53] LABS: Partial Thromboplastin Time 107.4 SECONDS (22.3-36.8)
[2022-04-17] VITALS (28 sets, daily range): BP systolic 114–154; BP diastolic 70–101; PULSE 67–146; RESP 18–34; TEMP 36.8–37.7; O2SAT 94–99
[2022-04-17] MEDS: SODIUM CHLORIDE 0.9% IV 1,000 ML 75 ML IV CONT ×2 (05:30→17:45)
[2022-04-17] MEDS: METOPROLOL TARTRATE INJ 5 MG/5 ML VIAL IV PUSH ×3 (05:32→23:41)
[2022-04-17] MEDS: LEVOTHYROXINE SODIUM 50 MCG TABLET PO (05:32)
[2022-04-17] MEDS: BENZONATATE 100 MG CAPSULE 200 MG PO (05:33)
[2022-04-17 05:39] LABS: Hematocrit 37.8 % (42.0-52.0); Hemoglobin 11.5 g/dL (14.0-18.0); Immature Platelet Fraction Pct 13.8 % (0.9-11.2); Mean Corpuscular HGB Conc 30.4 g/dl (32-36); Mean Corpuscular Hemoglobin 34.5 pg (26-34); Mean Corpuscular Volume 113.5 fl (80-100); Mean Platelet Volume 12.7 fl (7.4-10.4); Platelet Count Result 1086 k/mm3 (150-375); Red Blood Count 3.33 M/mm3 (4.6-6.20); Red Cell Distribution Width 21.5 % (11.5-14.5); White Blood Count 37.1 K/mm3 (4.5-10.0)
[2022-04-17 05:57] LABS: Alanine Aminotransferase 28 U/L (6-50); Albumin Level 3.5 g/dL (3.5-5.1); Alkaline Phosphatase 95 U/L (38-126); Anion Gap 9 mmol/L (8-16); Aspartate Amino Transferase 48 U/L (17-59); Bilirubin,Total 0.7 mg/dL (0.2-1.3); Blood Urea Nitrogen 26 mg/dL (9-20); CRP 8.9 mg/dL (<1.0); Calcium 8.3 mg/dL (8.4-10.2); Carbon Dioxide 24 mmol/L (22-30); Chloride 102 mmol/L (98-107); Estimated CRCL calculation 59 ml/min; Estimated Glomerular Filt Rate > 60; Glucose 120 mg/dL (65-110); Magnesium 2.2 mg/dL (1.6-2.3); Potassium 4.2 mmol/L (3.4-5.0); Sodium 135 mmol/L (137-145)
[2022-04-17 06:36] LABS: Lymphocytes Absolute Manual 0.74 K/mm3 (1.1-4.5); Neutrophils Percent Manual 98 % (46-73); Nucleated Red Blood Cells 1 %; Platelet Estimate Increased (Adequate); Total Cells Counted 100
[2022-04-17 06:38] LABS: Anisocytosis 2+ (NORMAL); Helmet Cells 1+ (NORMAL); Ovalocytes 2+ (NORMAL); Schistocytes None Seen (NORMAL); Tear Drop Cells 2+ (NORMAL)
[2022-04-17] MEDS: cefTRIAXone 2 GM in SODIUM CHLORIDE 0.9% IV 100 ML 200 ML IVPB (08:12)
--- NOTE | 2022-04-17 08:48 | PCPTNOTE ---
Attempted PT evaluation, per RN she recommends PT waiting until the afternoon when pt is more oriented. Will follow
[2022-04-17] MEDS: FLUTICASONE PROPIONATE 0.05% NA SPR 16 GM BTL (*BKC) 1 SPRAY NASAL (09:00)
[2022-04-17] MEDS: AMIODARONE 360 MG/D5W 200 ML 360 MG/200 ML BAG 16.67 MG IV CONT (09:10)
[2022-04-17] MEDS: HEPARIN SOD/D5W 100 UNITS/ML 25,000 UNITS/250 ML BAG 13 UNITS IV CONT (09:11)
[2022-04-17] MEDS: AMIODARONE 150 MG/D5W 100 ML 150 MG/100 ML BAG 600 MG IV CONT (09:11)
[2022-04-17] MEDS: AMIODARONE 360 MG/D5W 200 ML 360 MG/200 ML BAG 33.33 MG IV CONT ×3 (09:30→21:24)
[2022-04-17] MEDS: FLUTICASONE/SALMETEROL 115-21 MCG INHALER 1 PUFF 2 PUFF INHALATION (10:40)
[2022-04-17 10:43] LABS: Alveolar/Arterial O2 Gradient 212.6 mmHg; Base Excess ABG -1.9 mEq/l (+/-2.0); Device NASAL CANNULA; Fractional Inspired Oxygen 44 %; HCO3 ABG 20.9 mEq/l (22.0-26.0); Modified Allen's Test Pass; Oxygen Content ABG 16.2 %vol (16.0-22.0); Oxygen Saturation ABG 94.6 % (95.0-100.0); PCO2 ABG 29.9 mmHg (35.0-45.0); PO2 FiO2 Ratio Arterial Blood 1.52 %; Site Drawn RIGHT RADIAL; Total Hemoglobin 12.5 g/dL (12.0-18.0); pH ABG 7.463 (7.350-7.450)
--- NOTE | 2022-04-17 10:51 | P.PNIM_ITS ---
Progress Note: A&P Assessment and Plan (1) Acute respiratory failure: Code(s): J96.00 - Acute respiratory failure, unspecified whether with hypoxia or hypercapnia Status: Acute Assessment and Plan: Patient in acute respiratory failure. * ABG shows 7.4 10/05/66 on 6 L. chest x-ray showing diffuse multilobar airspace disease. ABG and CXR reviewed personally. * Tachypnea is resulting in the low pCO2 but concerned that he will tire out. * Suspect felt related to COVID with possible bacterial post COVID bacterial pneumonia (aspiration?). * White count is climbing but patient is on steroids. Still having fevers. Heart rate remains uncontrolled. * Consider CHF in the etiology due to elevated HR. He may need cardioversion. * Will start BiPAP. Pulmonary consult. Will place Gautam catheter. Spoke with son (KAMERON) and verified that the patient is DNR status. Options were discussed including comfort measures. Son wishes to continue with current treatment plan for now. Spoke with another son and he was updated as well. He wishes patient to have Vit C 5000mg IV once. It was explained that this is not a proven treatment for COVID and that we do not have it here and that the pateitn was on VitC prior to admission. (2) Sepsis: Qualifiers: Sepsis acute organ dysfunction status: without acute organ dysfunction Sepsis type: sepsis due to unspecified organism Qualified Code(s): A41.9 - Sepsis, unspecified organism Code(s): A41.9 - Sepsis, unspecified organism Status: Acute Assessment and Plan: Sepsis present on admission related to COVID with possible bacterial PNA. * Consider aspiration as well. * Continue IV abx * Continue treatment for COVID. (3) Atrial fibrillation with RVR: Code(s): I48.91 - Unspecified atrial fibrillation Status: Acute Assessment and Plan: Patient with hx of AFib * Was on metoprolol oral but changed to IV given his condition * Started Amiodarone drip. Cardizem drip was discontinued. * Cardiology is managing. * On Heparin gtt. Eliquis stopped * Keep in IMU on tele (4) Pneumonia due to COVID-19 virus: Code(s): U07.1 - COVID-19; J12.82 - Pneumonia due to coronavirus disease 2018 Status: Acute Assessment and Plan: Patient presents with shortness of breath. He was diagnosed with COVID on 04/12/2022. * Patient febrile * White count climbing possibly related to steroids. * Imaging is consistent with COVID and possibly bacterial pneumonia. * Blood culture NGTD * Continue Rocephin and vancomycin; add Flagyl to cover for aspiration * Day 5 of dexamethasone; Add Remdesivir. (5) Pulmonary embolism: Code(s): I26.99 - Other pulmonary embolism without acute cor pulmonale Status: Acute Assessment and Plan: Patient had CTA chest 04/13 showing no PE. * Repeat CTA of the chest shows PE in the right upper lobe. * Patient has been started on heparin drip. * Patient was on Eliquis on admission * Most likely PE related to COVID. (6) Fever: Code(s): R50.9 - Fever, unspecified Status: Acute Assessment and Plan: Secondary to COVID and/or bacterial pneumonia * Continue Tylenol IV * Blood culture NGTD. * BP stable (7) Hypertension: Code(s): I10 - Essential (primary) hypertension Status: Chronic Assessment and Plan: Blood pressure reviewed on 04/17 * BP elevated at times felt related to respiratory distress * Continue metoprolol IV * Will adjust medication as needed
--- NOTE | 2022-04-17 10:51 | PM.IMPN ---
Progress Note: A&P Assessment and Plan (1) Acute respiratory failure: Code(s): J96.00 - Acute respiratory failure, unspecified whether with hypoxia or hypercapnia Status: Acute Assessment and Plan: Patient in acute respiratory failure. ABG shows 7.4 10/05/66 on 6 L. chest x-ray showing diffuse multilobar airspace disease. ABG and CXR reviewed personally. Tachypnea is resulting in the low pCO2 but concerned that he will tire out. Suspect felt related to COVID with possible bacterial post COVID bacterial pneumonia (aspiration?). White count is climbing but patient is on steroids. Still having fevers. Heart rate remains uncontrolled. Consider CHF in the etiology due to elevated HR. He may need cardioversion. Will start BiPAP. Pulmonary consult. Will place Gautam catheter. Spoke with son (KAMERON) and verified that the patient is DNR status. Options were discussed including comfort measures. Son wishes to continue with current treatment plan for now. Spoke with another son and he was updated as well. He wishes patient to have Vit C 5000mg IV once. It was explained that this is not a proven treatment for COVID and that we do not have it here and that the pateitn was on VitC prior to admission. (2) Sepsis: Qualifiers: Sepsis acute organ dysfunction status: without acute organ dysfunction Sepsis type: sepsis due to unspecified organism Qualified Code(s): A41.9 - Sepsis, unspecified organism Code(s): A41.9 - Sepsis, unspecified organism Status: Acute Assessment and Plan: Sepsis present on admission related to COVID with possible bacterial PNA. Consider aspiration as well. Continue IV abx Continue treatment for COVID. (3) Atrial fibrillation with RVR: Code(s): I48.91 - Unspecified atrial fibrillation Status: Acute Assessment and Plan: Patient with hx of AFib Was on metoprolol oral but changed to IV given his condition Started Amiodarone drip. Cardizem drip was discontinued. Cardiology is managing. On Heparin gtt. Eliquis stopped Keep in IMU on tele (4) Pneumonia due to COVID-19 virus: Code(s): U07.1 - COVID-19; J12.82 - Pneumonia due to coronavirus disease 2018 Status: Acute Assessment and Plan: Patient presents with shortness of breath. He was diagnosed with COVID on 04/12/2022. Patient febrile White count climbing possibly related to steroids. Imaging is consistent with COVID and possibly bacterial pneumonia. Blood culture NGTD Continue Rocephin and vancomycin; add Flagyl to cover for aspiration Day 5 of dexamethasone; Add Remdesivir. (5) Pulmonary embolism: Code(s): I26.99 - Other pulmonary embolism without acute cor pulmonale Status: Acute Assessment and Plan: Patient had CTA chest 04/13 showing no PE. Repeat CTA of the chest shows PE in the right upper lobe. Patient has been started on heparin drip. Patient was on Eliquis on admission Most likely PE related to COVID. (6) Fever: Code(s): R50.9 - Fever, unspecified Status: Acute Assessment and Plan: Secondary to COVID and/or bacterial pneumonia Continue Tylenol IV Blood culture NGTD. BP stable (7) Hypertension: Code(s): I10 - Essential (primary) hypertension Status: Chronic Assessment and Plan: Blood pressure reviewed on 04/17 BP elevated at times felt related to respiratory distress Continue metoprolol IV Will adjust medication as needed (8) Anemia: Code(s): D64.9 - Anemia, unspecified Status: Chronic Assessment and Plan: Patient with chronic anemia. Hgb 11.1 in December Hgb here running mostly 10-11 range Stool guaiac positive but no active bleeding noted Continue iron supplements Will closely monitor patient (9) Swallowing dysfunction: Code(s): R13.10 - Dysphagia, unspecified Status: Acute Assessment and Pl
[2022-04-17 11:53] LABS: Partial Thromboplastin Time 47.8 SECONDS (22.3-36.8)
[2022-04-17] MEDS: HEPARIN SODIUM 5,000 UNITS/ML VIAL 7000 UNITS IV PUSH (12:04)
--- NOTE | 2022-04-17 12:26 | PM.PNCARD ---
Progress Note: A&P Assessment and Plan (1) Atrial fibrillation with RVR: Code(s): I48.91 - Unspecified atrial fibrillation Status: Acute Assessment and Plan: 81-year-old male with hypertension, atrial fibrillation on anticoagulation with apixaban, PAD, history of ?DVT, history of CVA, hypothyroidism on thyroxine replacement, dyslipidemia. [facility] from [facility] with altered mental status and shortness of breath, has COVID in 19 pneumonia and respiratory failure. Patient has history of atrial fibrillation, unknown duration. He is currently in atrial fibrillation with RVR in the setting of COVID 19 pneumonia respiratory failure. -Continue Amiodarone drip. -At this time, patient is unable to take oral medications. Would give Metoprolol IV PRN. Once patient is able to take oral meds, would give oral Metoprolol in addition to IV Amiodarone. -Will give Digoxin x 1 to see if we can get additional rate control. -On Heparin drip for anticoagulation. -DC cardioversion for any hemodynamically unstable AFib with RVR. -continue to monitor on telemetry for now. Patient is DNR. (2) Pneumonia due to COVID-19 virus: Code(s): U07.1 - COVID-19; J12.82 - Pneumonia due to coronavirus disease 2019 Status: Acute Assessment and Plan: Management as per primary team. (3) Pulmonary embolism: Code(s): I26.99 - Other pulmonary embolism without acute cor pulmonale Status: Acute Assessment and Plan: Chest CTA 04/16 showed PE in the right upper lobe. Likely from COVID. On Heparin drip. Once patient is able to take oral meds, would transition to NOAC. Subjective Date/time seen: 04/17/22 12:26 Interval history: Reason for visit: Atrial fibrillation with RVR Patient remains altered this morning. HR in the 130s-140s. Amiodarone bolus was given and the drip was increased back to 1. HR improved to 110-120. Unable to obtain history from the patient. On 6L O2 this morning. Review of Systems Review of Systems: ROS unobtainable: Yes unobtainable due to mental status Exam Const: General: confusion Orientation/consciousness: No patient oriented x3, confusion and lethargic Eyes: General: appearance normal, both eyes and all related structures Resp: Auscultation: diminished lung sounds Other: On supplemental oxygen Cardio: Rate: tachycardic Rhythm: abnormal rhythm Heart sounds: S1 normal heart sound present, S2 normal heart sound present and no murmurs Skin: General skin exam: normal color Neuro: General: No patient oriented x3 Extrem: General: no edema Objective Data Vital Signs Vital Signs: Vital Signs - 24 hr 04/16/22 12:40 04/16/22 14:00 04/16/22 14:24 Temperature Pulse Rate 133 H 137 H 124 H Respiratory Rate Blood Pressure Pulse Oximetry Oxygen Delivery Oxygen Flow Rate 04/16/22 14:58 04/16/22 15:42 04/16/22 17:20 Temperature 37.3 C Pulse Rate 110 H Respiratory Rate Blood Pressure Pulse Oximetry 99 Oxygen Delivery Nasal Cannula Oxygen Flow Rate 2 04/16/22 16:00 04/16/22 16:00 04/16/22 17:35 Temperature 37.3 C Pulse Rate 110 H 103 H 97 Respiratory Rate 24 H Blood Pressure 117/73 Pulse Oximetry 96 Oxygen Delivery Oxygen Flow Rate 04/16/22 20:35 04/16/22 21:28 04/16/22 21:31 Temperature 37.9 C H 37.9 C H Pulse Rate 91 105 H Respiratory Rate 20 Blood Pressure 127/60 127/60 Pulse Oximetry 96 Oxygen Delivery Oxygen Flow Rate 04/16/22 20:00 04/16/22 20:00 04/16/22 22:00 Temperature Pulse Rate 101 H 101 H 90 Respiratory Rate 20 Blood Pressure Pulse Oximetry 96 Oxygen Delivery Nasal Cannula Oxygen Flow Rate 2 04/16/22 23:35 04/16/22 23:52 04/16/22 23:53 Temperature 38.1 C H 38.1 C H Pulse Rate 107 H 92 Respiratory Rate 19 Blood Pressure 119/58 L Pulse Oximetry 96 Oxygen Delivery Oxygen Flow Rate 04/17/22 00:00 04/17/22 00:00 04/17/22 02
[2022-04-17 12:43] LABS: INR 1.9; Prothrombin Time 21.1 Seconds (11.1-14.7)
[2022-04-17] MEDS: IPRATROPIUM BR 0.02% INH SOLN 0.5 MG/2.5 ML VIAL INHALATION (12:50)
--- NOTE | 2022-04-17 13:22 | PCOTNOTE ---
Attempted to see pt for Occupational Therapy treatment. Per RN, pt is not appropriate at this time due to decrease alertness/following commands. Per RN, pt was just put on AirVo. Will continue per poc duration/frequency tomorrow.
--- NOTE | 2022-04-17 13:27 | PCPTNOTE ---
Attempted to see pt for Physical Therapy evaluation. Per RN, pt is not appropriate at this time due to decrease alertness/following commands. Per RN, pt was just put on AirVo. Will follow.
[2022-04-17] MEDS: PANTOPRAZOLE SODIUM IV 40 MG VIAL IV PUSH (13:28)
[2022-04-17] MEDS: DIGOXIN INJ 250 MCG/ML 2 ML AMP (*BKC) 500 MCG IV PUSH (13:28)
[2022-04-17 15:06] LABS: Alanine Aminotransferase 48 U/L (6-50); Estimated CRCL calculation 59 ml/min; Estimated Glomerular Filt Rate > 60
[2022-04-17] MEDS: metroNIDAZOLE 500 MG/ISO 100ML 500 MG/100 ML BAG 100 MG IVPB ×2 (15:23→21:24)
[2022-04-17] MEDS: REMDESIVIR 200 MG/NS 250 ML 200 MG/250 ML BAG 250 MG IVPB (15:23)
[2022-04-17 15:28] LABS: Vancomycin Trough 9.3 ug/mL (10.0-20.0)
--- NOTE | 2022-04-17 17:26 | PM.CNPUL ---
Assessment and Plan Assessment and plan (1) Pneumonia due to COVID-19 virus: Code(s): U07.1 - COVID-19; J12.82 - Pneumonia due to coronavirus disease 2019 Status: Acute Assessment and Plan: Patient tested positive for COVID-19 on 04/13/22 and started on dexamethasone on 04/13, remdesivir 04/17 and ordered tocilizumab on 04/17/22. Emperically started on ceftriaxone and azithromycin. Remdesivir for 10 days unless he should recover and tolerate room air with rest, ambulation and while sleeping. - Dexamethasone 6 mg IV for 10 days - Continuous pulse oximetry - Prone positioning as tolerated. - Avoid any fluid overload. - emperic vanco, ceftraixone and flagyl for possible aspiration - no wheezes. - negative influenza swab. Keep saturations are 90-94% with airvo and BiPAP if fails then Airvo high flow nasal cannula. Patient is DNI (2) Acute respiratory failure: Code(s): J96.00 - Acute respiratory failure, unspecified whether with hypoxia or hypercapnia Status: Acute Assessment and Plan: Etiology of hypoxic respiratory failure is likely COVID pneumonia, Afib, and COVID provoked PE. 04/14 16:00 RA 96% 04/15 08:00 RA 90% 04/15 20:00 NC 2 L 97% 04/16 08:00 NC 2 L 99% 04/16 20:00 NC 2 L 96% 04/17 08:00 2 L NC 94% 04/17 15:57 Airvo 40 L 50% sasts 97% (3) Pulmonary embolism: Code(s): I26.99 - Other pulmonary embolism without acute cor pulmonale Status: Acute Assessment and Plan: patient with a COVID provoked pulmonary embolism on 04/16/2022. Patient is on IV heparin (also with AFib). Will get upper and lower extremity Dopplers on 04/18/2023 to assess clot burden. History of Present Illness History of Present Illness Consult date: 04/17/22 Chief complaint: A Fib w/RVR Narrative: 04/17/2022. This is a new pulmonary consult for COVID pneumonia with hypoxemic respiratory failure. 81-year-old man with a history of AFib, hypertension, hyperlipidemia presented to the emergency room from a nursing facility after testing positive for COVID on 04/12/2022. The patient was more lethargic his white blood cell count was 16.5 and his COVID test was positive. Patient had bilateral infiltrates. initial CT angiogram was negative for pulmonary embolism Patient also had AFib with RVR and was treated with IV diltiazem. Patient was started on dexamethasone on 04/13. the patient remained on room air until 04/15 And had a blood gas of 7.49, 28, 76 on room air on 04/15/2022. The patient had worsening oxygenation on 04/15 requiring supplemental oxygen. of 04/16/[address] patient had a CT angiogram with a right upper lobe and started on IV heparin. worsening oxygenation on 04/17 and the patient was started on Remdesivir on 04/17/2022. 04/17/2022: at the bedside nurse the patient was on 2 L nasal cannula yesterday and today required 6 L nasal cannula and had desaturations requiring airvo and is currently on 40 L and 50% FiO2 with saturations 99%. The patient was started on ceftriaxone on 04/15. and started on Flagyl on 04/17 and vancomycin on 04/17/22. CRP today has increased to 8.9. Tociluzimab is ordered. DATA EXAMINATION: CTA chest PE protocol DATE: 04/16/2022 15:27 INDICATION: Shortness of breath, COVID 19 positive TECHNIQUE: Computed tomography angiography (CTA) of the chest was performed with 100 mL Omnipaque-350 intravenous contrast timed to evaluate the pulmonary arteries. Coronal maximum intensity projection 3D-reconstructions were created by the technologist. The dose-length product (DLP) was 816.40 mGy-cm. Automated exposure control and iterative reconstruction technique were employed. COMPARISON: 04/13/2022 FINDINGS: The pulmonary arteries are well-opacified. There are pulmonary arterial filling defects in the right upper lobe. Respiratory motion artifact somewhat limits evaluation for additional pulmonary emboli. Cardiomegaly is noted. There is mediastinal lymphadenopath
[2022-04-17 19:46] LABS: Partial Thromboplastin Time 149.9 SECONDS (22.3-36.8)
[2022-04-17] MEDS: traZODone HCL 50 MG TABLET PO (21:24)
[2022-04-17] MEDS: guaiFENesin 12 HR 600 MG TABCR 1200 MG PO (21:24)
--- NOTE | 2022-04-17 22:53 | PCRCNOTE ---
Window of time for administration has passed. See next scheduled administration.
[2022-04-18] VITALS (28 sets, daily range): BP systolic 110–126; BP diastolic 69–83; PULSE 56–88; RESP 18–21; TEMP 36.3–37.2; O2SAT 95–100
[2022-04-18] MEDS: IPRATROPIUM BR 0.02% INH SOLN 0.5 MG/2.5 ML VIAL INHALATION ×4 (02:40→21:04)
[2022-04-18 03:26] LABS: INR 2.1; Prothrombin Time 22.5 Seconds (11.1-14.7)
[2022-04-18 03:28] LABS: Hematocrit 30.6 % (42.0-52.0); Hemoglobin 9.3 g/dL (14.0-18.0); Mean Corpuscular HGB Conc 30.4 g/dl (32-36); Mean Corpuscular Hemoglobin 34.4 pg (26-34); Mean Corpuscular Volume 113.3 fl (80-100); Mean Platelet Volume 12.8 fl (7.4-10.4); Partial Thromboplastin Time 94.8 SECONDS (22.3-36.8); Platelet Count Result 631 k/mm3 (150-375); Red Cell Distribution Width 21.2 % (11.5-14.5); White Blood Count 22.1 K/mm3 (4.5-10.0)
[2022-04-18 03:32] LABS: Alanine Aminotransferase 43 U/L (6-50); Albumin Level 2.6 g/dL (3.5-5.1); Alkaline Phosphatase 70 U/L (38-126); Anion Gap 6 mmol/L (8-16); Aspartate Amino Transferase 73 U/L (17-59); Bilirubin,Total 0.4 mg/dL (0.2-1.3); Blood Urea Nitrogen 31 mg/dL (9-20); CRP 8.6 mg/dL (<1.0); Calcium 7.4 mg/dL (8.4-10.2); Carbon Dioxide 24 mmol/L (22-30); Chloride 103 mmol/L (98-107); Estimated CRCL calculation 50 ml/min; Estimated Glomerular Filt Rate 58; Glucose 222 mg/dL (65-110); Potassium 3.9 mmol/L (3.4-5.0); Sodium 133 mmol/L (137-145)
[2022-04-18] MEDS: AMIODARONE 360 MG/D5W 200 ML 360 MG/200 ML BAG 33.33 MG IV CONT (03:32)
[2022-04-18] MEDS: HEPARIN SOD/D5W 100 UNITS/ML 25,000 UNITS/250 ML BAG 13 UNITS IV CONT (04:04)
[2022-04-18] MEDS: metroNIDAZOLE 500 MG/ISO 100ML 500 MG/100 ML BAG 100 MG IVPB ×3 (05:36→22:29)
[2022-04-18] MEDS: METOPROLOL TARTRATE INJ 5 MG/5 ML VIAL IV PUSH (05:36)
[2022-04-18] MEDS: LEVOTHYROXINE SODIUM 50 MCG TABLET PO (05:36)
[2022-04-18] MEDS: SODIUM CHLORIDE 0.9% IV 1,000 ML 75 ML IV CONT (06:28)
[2022-04-18] MEDS: guaiFENesin 12 HR 600 MG TABCR 1200 MG PO ×2 (08:00→20:56)
[2022-04-18] MEDS: ASPIRIN 81 MG ENTERIC TABLET PO (08:00)
[2022-04-18] MEDS: ATORVASTATIN 20 MG TABLET PO (08:00)
[2022-04-18] MEDS: cefTRIAXone 2 GM in SODIUM CHLORIDE 0.9% IV 100 ML 200 ML IVPB (08:00)
[2022-04-18] MEDS: PANTOPRAZOLE SODIUM IV 40 MG VIAL IV PUSH (08:00)
[2022-04-18] MEDS: REMDESIVIR 100 MG/NS 250 ML 100 MG/250 ML BAG 250 MG IVPB (09:00)
[2022-04-18 09:30] LABS: Partial Thromboplastin Time 52.1 SECONDS (22.3-36.8)
[2022-04-18] MEDS: AMIODARONE HCL 200 MG TABLET PO (09:51)
[2022-04-18] MEDS: METOPROLOL SUCCINATE EXT REL 50 MG TABCR PO (09:52)
[2022-04-18] MEDS: HEPARIN SODIUM 5,000 UNITS/ML VIAL 7000 UNITS IV PUSH (09:52)
--- NOTE | 2022-04-18 10:07 | PM.PNPUL ---
Progress Note: A&P Assessment and Plan (1) Pneumonia due to COVID-19 virus: Code(s): U07.1 - COVID-19; J12.82 - Pneumonia due to coronavirus disease 2019 Status: Acute Assessment and Plan: Patient tested positive for COVID-19 on 04/13/22 and started on dexamethasone on 04/13, remdesivir 04/17 and tocilizumab on 04/17/22. Emperically started on ceftriaxone and vanco on 04/15. Remdesivir for 10 days unless he should recover and tolerate room air with rest, ambulation and while sleeping. - Dexamethasone 6 mg IV for 10 days - Continuous pulse oximetry - Prone positioning as tolerated. - Avoid any fluid overload. - emperic vanco, ceftraixone and flagyl for possible aspiration - no wheezes. - negative influenza swab. Keep saturations are 90-94% with airvo and BiPAP if fails Airvo. Patient is DNR 04/18 patient is comfortable in bed and currently on 4 L nasal cannula. White blood cell count is improved to 22.1, CRP is mildly down to 8.6. today is Day 4 Ceftriaxone and vancomycin, and day 2 Flagyl. Recommend completing 7 days of ceftriaxone and vancomycin and 5 days of Flagyl and then discontinuing antibiotics. remdesivir and dexamethasone for total of 10 days. Patient should have home O2 assessment an overnight oximetry prior to discharge to determine his oxygen needs. Patient should have chest x-ray prior to discharge to serve as a new baseline. Discussed with Dr. Mccoy, will sign off, call with questions. (2) Acute respiratory failure: Code(s): J96.00 - Acute respiratory failure, unspecified whether with hypoxia or hypercapnia Status: Acute Assessment and Plan: Etiology of hypoxic respiratory failure is likely COVID pneumonia, Afib, and COVID provoked PE. 04/14 16:00 RA 96% 04/15 08:00 RA 90% 04/15 20:00 NC 2 L 97% 04/16 08:00 NC 2 L 99% 04/16 20:00 NC 2 L 96% 04/17 08:00 2 L NC 94% 04/17 15:57 Airvo 40 L 50% sats 97% 04/17 23:45 Airvo 40 L 50% sats 98% 04/18 09:30 NC 4 L 97% Patient has made excellent improvement on his oxygenation overnight. (3) Pulmonary embolism: Code(s): I26.99 - Other pulmonary embolism without acute cor pulmonale Status: Acute Assessment and Plan: 04/17 patient with a COVID provoked pulmonary embolism on 04/16/2022. Patient is on IV heparin (also with AFib). Will get upper and lower extremity Dopplers on 04/18/2023 to assess clot burden. 04/18 Patient has tolerated IV heparin without evidence of active bleeding. Would convert patient to DOAC that his insurance will cover. He was previously on Eliquis 5 mg p.o. b.i.d. for his AFib but would recommend 10 PO BID X 7 days then 5 po BID. Subjective Date/time seen: 04/18/22 10:07 Interval history: 04/17/2022.? This is a new pulmonary consult for COVID pneumonia with hypoxemic respiratory failure. ? 81-year-old man with a history of AFib, hypertension, hyperlipidemia, elvated left HD on first chest Xray in [facility] system on 10/24/2020, presented to the emergency room from a nursing facility after testing positive for COVID on 04/12/2022.? The patient was more lethargic his white blood cell count was 16.5 and his COVID test was positive.? Patient had bilateral infiltrates.? initial CT angiogram was negative for pulmonary embolism? Patient also had AFib with RVR and was treated with IV diltiazem.? Patient was started on dexamethasone on 04/13.? the patient remained on room air until 04/15 ? And had a blood gas of 7.49, 28, 76 on room air on 04/15/2022. ? The patient had worsening oxygenation on 04/15 requiring supplemental oxygen.? of 04/16/[address] patient had a CT angiogram with a right upper lobe and started on IV heparin.? worsening oxygenation on 04/17 and the patient was started on Remdesivir on 04/17/2022. Patient tells me he smokes cigarettes from age [age] at 1 pack per day for total of 30 pack years. He says at baseline he can walk 100 ft with his walker in his living facility. Tells me he has been d
--- NOTE | 2022-04-18 10:36 | PM.IMPN ---
Progress Note: A&P Assessment and Plan (1) Acute respiratory failure: Code(s): J96.00 - Acute respiratory failure, unspecified whether with hypoxia or hypercapnia Status: Acute Assessment and Plan: Patient in acute respiratory failure. ABG shows 7.4 10/05/66 on 6 L. chest x-ray showing diffuse multilobar airspace disease. ABG and CXR reviewed personally. Tachypnea is resulting in the low pCO2 but concerned that he will tire out. Suspect felt related to COVID with possible bacterial post COVID bacterial pneumonia (aspiration?). White count is climbing but patient is on steroids. Still having fevers. Heart rate remains uncontrolled. Consider CHF in the etiology due to elevated HR. He may need cardioversion. Started on BiPAP. Pulmonary consult. Gautam catheter placed Patient is DNR status (verified with son KAMERON) Family wanted treatment with Vit C 5000mg IV once. It was explained that this is not a proven treatment for COVID and that we do not have it here and that the jakeeitn was on VitC prior to admission. (2) Sepsis: Qualifiers: Sepsis type: sepsis due to unspecified organism Sepsis acute organ dysfunction status: without acute organ dysfunction Qualified Code(s): A41.9 - Sepsis, unspecified organism Code(s): A41.9 - Sepsis, unspecified organism Status: Acute Assessment and Plan: Sepsis present on admission related to COVID with possible bacterial PNA. Consider aspiration as well. Continue IV abx Continue treatment for COVID. (3) Atrial fibrillation with RVR: Code(s): I48.91 - Unspecified atrial fibrillation Status: Acute Assessment and Plan: Patient with hx of AFib Was on metoprolol oral but changed to IV given his condition Started Amiodarone drip. Cardizem drip was discontinued. Cardiology is managing. On Heparin gtt. Eliquis stopped Keep in IMU on tele (4) Pneumonia due to COVID-19 virus: Code(s): U07.1 - COVID-19; J12.82 - Pneumonia due to coronavirus disease 2018 Status: Acute Assessment and Plan: Patient presents with shortness of breath. He was diagnosed with COVID on 04/12/2022. Patient febrile White count climbing possibly related to steroids. Imaging is consistent with COVID and possibly bacterial pneumonia. Blood culture NGTD Continue Rocephin and vancomycin; add Flagyl to cover for aspiration Day 5 of dexamethasone ; Add Remdesivir. Started on 04/18/2022 continue for 10 total days (5) Pulmonary embolism: Code(s): I26.99 - Other pulmonary embolism without acute cor pulmonale Status: Acute Assessment and Plan: Patient had CTA chest 04/13 showing no PE. Repeat CTA of the chest shows PE in the right upper lobe. Patient has been started on heparin drip. Patient was on Eliquis on admission Most likely PE related to COVID. (6) Fever: Code(s): R50.9 - Fever, unspecified Status: Acute Assessment and Plan: Secondary to COVID and/or bacterial pneumonia Continue Tylenol IV Blood culture NGTD. BP stable (7) Hypertension: Code(s): I10 - Essential (primary) hypertension Status: Chronic Assessment and Plan: Blood pressure reviewed on 04/17 BP elevated at times felt related to respiratory distress Continue metoprolol IV Will adjust medication as needed (8) Anemia: Code(s): D64.9 - Anemia, unspecified Status: Chronic Assessment and Plan: Patient with chronic anemia. Hgb 11.1 in December Hgb here running mostly 10-11 range Stool guaiac positive but no active bleeding noted Continue iron supplements Will closely monitor patient (9) Swallowing dysfunction: Code(s): R13.10 - Dysphagia, unspecified Status: Acute Assessment and Plan: Concern for aspiration. Speech therapy recommend modified barium swallow MBS demonstrated laryngeal penetration with thin
--- NOTE | 2022-04-18 11:20 | PM.PNCARD ---
Progress Note: A&P Assessment and Plan (1) Atrial fibrillation with RVR: Code(s): I48.91 - Unspecified atrial fibrillation Status: Acute Assessment and Plan: 81-year-old male with hypertension, atrial fibrillation on anticoagulation with apixaban, PAD, history of ?DVT, history of CVA, hypothyroidism on thyroxine replacement, dyslipidemia. Patient admitted from [facility] with altered mental status and shortness of breath, has COVID in 19 pneumonia and respiratory failure. Patient has history of atrial fibrillation, unknown duration. Was in RVR on admission. Patient is now rate-controlled. D/C Amiodarone drip. Will start oral Amiodarone 200mg QD. Recommend to discharge patient on this dose. Resume Metoprolol at 50mg. Continue anticoagulation. Cardiology will sign off at this time. (2) Pneumonia due to COVID-19 virus: Code(s): U07.1 - COVID-19; J12.82 - Pneumonia due to coronavirus disease 2018 Status: Acute Assessment and Plan: Management as per primary team. (3) Pulmonary embolism: Code(s): I26.99 - Other pulmonary embolism without acute cor pulmonale Status: Acute Assessment and Plan: Chest CTA 04/16 showed PE in the right upper lobe. Likely from COVID. On Heparin drip. Once patient is able to take oral meds, would transition to NOAC. Subjective Date/time seen: 04/18/22 11:20 Interval history: Reason for visit: Atrial fibrillation with RVR Patient is now mentally alert and answering questions appropriately. Still has unchanged shortness of breath. AFIB is now rate controlled after receiving Digoxin yesterday. No chest pain. Review of Systems Review of Systems: 8-point ROS obtained. Negative, unless stated in HPI. Exam Const: General: no acute distress Eyes: General: appearance normal, both eyes and all related structures Resp: Auscultation: diminished lung sounds Other: On supplemental oxygen Cardio: Rhythm: abnormal rhythm Heart sounds: S1 normal heart sound present, S2 normal heart sound present and no murmurs GI: GI Palp: Yes Soft to palpation and No Tenderness to palpation present (GI) Skin: General skin exam: normal color Neuro: General: patient oriented x3 Speech: normal speech Extrem: General: no edema Psych: Mental Status: mental status grossly normal Affect: normal affect Objective Data Vital Signs Vital Signs: Vital Signs - 24 hr 04/17/22 11:29 04/17/22 12:00 04/17/22 13:05 Temperature 37.0 C Pulse Rate 120 H Respiratory Rate 34 H Blood Pressure 125/76 Pulse Oximetry 94 96 99 Oxygen Delivery Nasal Cannula High Flow Therapy with Na Oxygen Flow Rate 2 40 Fraction of Inspired Oxygen 60 04/17/22 12:50 04/17/22 13:05 04/17/22 13:28 Temperature Pulse Rate 108 H 116 H 113 H Respiratory Rate 20 18 Blood Pressure Pulse Oximetry Oxygen Delivery Oxygen Flow Rate Fraction of Inspired Oxygen 04/17/22 12:00 04/17/22 14:00 04/17/22 15:48 Temperature Pulse Rate 132 H 106 H Respiratory Rate Blood Pressure Pulse Oximetry 99 Oxygen Delivery High Flow Therapy with Na Oxygen Flow Rate 40 Fraction of Inspired Oxygen 50 04/17/22 15:57 04/17/22 16:00 04/17/22 16:00 Temperature 37.0 C Pulse Rate 88 89 88 Respiratory Rate 28 H Blood Pressure 121/81 Pulse Oximetry 97 97 Oxygen Delivery High Flow Therapy with Na Oxygen Flow Rate 40 Fraction of Inspired Oxygen 50 04/17/22 17:45 04/17/22 17:47 04/17/22 20:42 Temperature 37.7 C H Pulse Rate 99 67 73 Respiratory Rate 20 Blood Pressure 117/72 Pulse Oximetry 99 Oxygen Delivery Oxygen Flow Rate Fraction of Inspired Oxygen 04/17/22 21:24 04/17/22 20:00 04/17/22 22:00 Temperature Pulse Rate 73 76 76 Respiratory Rate Blood Pressure Pulse Oximetry Oxygen Delivery Oxygen Flow Rate Fraction of Inspired Oxygen 04/17/22 23:41 04/17/22 23:51 04/18/22 00:0
[2022-04-18 16:09] LABS: Partial Thromboplastin Time 82.8 SECONDS (22.3-36.8)
[2022-04-18] MEDS: HEPARIN SOD/D5W 100 UNITS/ML 25,000 UNITS/250 ML BAG 16 UNITS IV CONT (20:56)
[2022-04-18] MEDS: traZODone HCL 50 MG TABLET PO (20:57)
[2022-04-18 22:29] LABS: Partial Thromboplastin Time 87.6 SECONDS (22.3-36.8)
[2022-04-19] VITALS (22 sets, daily range): BP systolic 119–142; BP diastolic 68–87; PULSE 55–100; RESP 18–22; TEMP 36.2–37.2; O2SAT 92–100
[2022-04-19] MEDS: IPRATROPIUM BR 0.02% INH SOLN 0.5 MG/2.5 ML VIAL INHALATION ×4 (02:34→22:19)
[2022-04-19 05:18] LABS: Hematocrit 30.6 % (42.0-52.0); Hemoglobin 9.7 g/dL (14.0-18.0); Mean Corpuscular HGB Conc 31.7 g/dl (32-36); Mean Corpuscular Hemoglobin 34.2 pg (26-34); Mean Corpuscular Volume 107.7 fl (80-100); Mean Platelet Volume 12.9 fl (7.4-10.4); Platelet Count Result 734 k/mm3 (150-375); Red Blood Count 2.84 M/mm3 (4.6-6.20); Red Cell Distribution Width 21.1 % (11.5-14.5); White Blood Count 15.3 K/mm3 (4.5-10.0)
[2022-04-19 05:24] LABS: Prothrombin Time 21.7 Seconds (11.1-14.7)
[2022-04-19 05:25] LABS: Partial Thromboplastin Time 67.2 SECONDS (22.3-36.8)
[2022-04-19 05:26] LABS: Alanine Aminotransferase 47 U/L (6-50); Albumin Level 2.6 g/dL (3.5-5.1); Alkaline Phosphatase 80 U/L (38-126); Anion Gap 5 mmol/L (8-16); Aspartate Amino Transferase 75 U/L (17-59); Bilirubin,Total 0.5 mg/dL (0.2-1.3); Blood Urea Nitrogen 31 mg/dL (9-20); CRP 5.8 mg/dL (<1.0); Calcium 7.9 mg/dL (8.4-10.2); Carbon Dioxide 24 mmol/L (22-30); Chloride 106 mmol/L (98-107); Estimated CRCL calculation 59 ml/min; Estimated Glomerular Filt Rate > 60; Glucose 87 mg/dL (65-110); Potassium 3.8 mmol/L (3.4-5.0); Sodium 135 mmol/L (137-145)
[2022-04-19] MEDS: LEVOTHYROXINE SODIUM 50 MCG TABLET PO (05:42)
[2022-04-19] MEDS: metroNIDAZOLE 500 MG/ISO 100ML 500 MG/100 ML BAG 100 MG IVPB ×3 (05:42→21:49)
[2022-04-19] MEDS: HEPARIN SODIUM 5,000 UNITS/ML VIAL 3500 UNITS IV PUSH (05:43)
[2022-04-19 06:53] LABS: Vancomycin Trough 17.4 ug/mL (10.0-20.0)
[2022-04-19] MEDS: cefTRIAXone 2 GM in SODIUM CHLORIDE 0.9% IV 100 ML 200 ML IVPB (09:14)
[2022-04-19] MEDS: ATORVASTATIN 20 MG TABLET PO (09:15)
[2022-04-19] MEDS: METOPROLOL SUCCINATE EXT REL 50 MG TABCR PO (09:15)
[2022-04-19] MEDS: AMIODARONE HCL 200 MG TABLET PO (09:15)
[2022-04-19] MEDS: guaiFENesin 12 HR 600 MG TABCR 1200 MG PO ×2 (09:15→21:48)
[2022-04-19] MEDS: PANTOPRAZOLE SODIUM IV 40 MG VIAL IV PUSH (09:16)
[2022-04-19] MEDS: ASPIRIN 81 MG ENTERIC TABLET PO (09:16)
[2022-04-19] MEDS: HEPARIN SOD/D5W 100 UNITS/ML 25,000 UNITS/250 ML BAG 18 UNITS IV CONT (10:15)
[2022-04-19] MEDS: REMDESIVIR 100 MG/NS 250 ML 100 MG/250 ML BAG 250 MG IVPB (10:17)
[2022-04-19 11:28] LABS: Partial Thromboplastin Time 119.3 SECONDS (22.3-36.8)
--- NOTE | 2022-04-19 16:45 | P.PNIM_ITS ---
Progress Note: A&P Assessment and Plan (1) Acute respiratory failure: Code(s): J96.00 - Acute respiratory failure, unspecified whether with hypoxia or hypercapnia Status: Acute Assessment and Plan: Patient in acute respiratory failure. * ABG shows 7.4 10/05/66 on 6 L. chest x-ray showing diffuse multilobar airspace disease. ABG and CXR reviewed personally. * Tachypnea is resulting in the low pCO2 but concerned that he will tire out. * Suspect felt related to COVID with possible bacterial post COVID bacterial pneumonia (aspiration?). * White count is climbing but patient is on steroids. Still having fevers. Heart rate remains uncontrolled. * Consider CHF in the etiology due to elevated HR. He may need cardioversion. * Started on BiPAP. Pulmonary consult. Gautam catheter placed Patient is DNR status (verified with son KAMERON) Family wanted treatment with Vit C 5000mg IV once. It was explained that this is not a proven treatment for COVID and that we do not have it here and that the kenian was on VitC prior to admission. (2) Sepsis: Qualifiers: Sepsis type: sepsis due to unspecified organism Sepsis acute organ dysfunction status: without acute organ dysfunction Qualified Code(s): A41.9 - Sepsis, unspecified organism Code(s): A41.9 - Sepsis, unspecified organism Status: Acute Assessment and Plan: Sepsis present on admission related to COVID with possible bacterial PNA. * Consider aspiration as well. * Continue IV abx * Continue treatment for COVID. (3) Atrial fibrillation with RVR: Code(s): I48.91 - Unspecified atrial fibrillation Status: Acute Assessment and Plan: Patient with hx of AFib * Was on metoprolol oral but changed to IV given his condition * Started Amiodarone drip. Cardizem drip was discontinued. * Cardiology is managing. * On Heparin gtt. Eliquis stopped. * Keep in IMU on tele (4) Pneumonia due to COVID-19 virus: Code(s): U07.1 - COVID-19; J12.82 - Pneumonia due to coronavirus disease 2018 Status: Acute Assessment and Plan: Patient presents with shortness of breath. He was diagnosed with COVID on 04/12/2022. * Patient febrile * White count climbing possibly related to steroids. * Imaging is consistent with COVID and possibly bacterial pneumonia. * Blood culture NGTD * Continue Rocephin and vancomycin; add Flagyl to cover for aspiration * Day 5 of dexamethasone ; Add Remdesivir. Started on 04/18/2022 continue for 10 total days (5) Pulmonary embolism: Code(s): I26.99 - Other pulmonary embolism without acute cor pulmonale Status: Acute Assessment and Plan: Patient had CTA chest 04/13 showing no PE. * Repeat CTA of the chest shows PE in the right upper lobe. * Patient has been started on heparin drip. * Patient was on Eliquis on admission * Most likely PE related to COVID. (6) Fever: Code(s): R50.9 - Fever, unspecified Status: Acute Assessment and Plan: Secondary to COVID and/or bacterial pneumonia * Continue Tylenol IV * Blood culture NGTD. * BP stable (7) Hypertension: Code(s): I10 - Essential (primary) hypertension Status: Chronic Assessment and Plan: Blood pressure reviewed on 04/17 * BP elevated at times felt related to respiratory distress * Continue metoprolol IV * Will adjust medication as needed (8) Anemia: Code(s): D64.9 - Anemia, unspecified Status: Chronic Assessment and Plan:
[2022-04-19] MEDS: traZODone HCL 50 MG TABLET PO (21:49)
[2022-04-20] VITALS (22 sets, daily range): BP systolic 136–150; BP diastolic 75–91; PULSE 71–112; RESP 16–24; TEMP 36.3–36.8; O2SAT 93–98; BMI 23.7
[2022-04-20] MEDS: HEPARIN SOD/D5W 100 UNITS/ML 25,000 UNITS/250 ML BAG 16 UNITS IV CONT ×2 (00:52→19:51)
[2022-04-20 01:22] LABS: Partial Thromboplastin Time 80.6 SECONDS (22.3-36.8)
--- NOTE | 2022-04-20 05:06 | PCRCNOTE ---
Window of time for administration has passed. See next scheduled administration.
[2022-04-20 05:38] LABS: Basophils Absolute Auto 0.1 K/mm3 (0.0-0.1); Basophils Percent Auto 0.3 % (0.2-1.2); Eosinophils Percent Auto 0.1 % (0-4.4); Hematocrit 32.7 % (42.0-52.0); Hemoglobin 10.3 g/dL (14.0-18.0); Immature Granulocyte Absolute 0.75 K/mm3 (0.00-0.031); Immature Granulocyte Percent A 4.2 % (0-0.5); Immature Platelet Fraction Pct 15.7 % (0.9-11.2); Lymphocytes Absolute Auto 0.83 K/mm3 (0.9-3.2); Lymphocytes Percent Auto 4.7 % (18.3-44.2); Mean Corpuscular HGB Conc 31.5 g/dl (32-36); Mean Corpuscular Hemoglobin 33.9 pg (26-34); Mean Corpuscular Volume 107.6 fl (80-100); Mean Platelet Volume 13.1 fl (7.4-10.4); Monocytes Absolute Auto 2.2 K/mm3 (0.1-0.6); Monocytes Percent Auto 12.3 % (2.6-8.5); Neutrophils Percent Auto 78.4 % (45.5-73.1); Nucleated Red Blood Cells Absolute Auto 0.1 K/mm3 (0.0-0.012); Nucleated Red Blood Cells Perc 0.7 % (0.0-0.2); Platelet Count Result 841 k/mm3 (150-375); Red Blood Count 3.04 M/mm3 (4.6-6.20); Red Cell Distribution Width 21.3 % (11.5-14.5); White Blood Count 17.8 K/mm3 (4.5-10.0)
[2022-04-20 05:47] LABS: Alanine Aminotransferase 51 U/L (6-50); Albumin Level 2.8 g/dL (3.5-5.1); Alkaline Phosphatase 118 U/L (38-126); Anion Gap 2 mmol/L (8-16); Aspartate Amino Transferase 74 U/L (17-59); Bilirubin,Total 0.5 mg/dL (0.2-1.3); Blood Urea Nitrogen 26 mg/dL (9-20); Calcium 7.9 mg/dL (8.4-10.2); Carbon Dioxide 27 mmol/L (22-30); Chloride 102 mmol/L (98-107); Estimated CRCL calculation 65 ml/min; Estimated Glomerular Filt Rate > 60; Glucose 124 mg/dL (65-110); Sodium 131 mmol/L (137-145)
[2022-04-20 05:52] LABS: Partial Thromboplastin Time 50.7 SECONDS (22.3-36.8)
[2022-04-20 05:53] LABS: INR 1.9; Prothrombin Time 21.1 Seconds (11.1-14.7)
[2022-04-20] MEDS: metroNIDAZOLE 500 MG/ISO 100ML 500 MG/100 ML BAG 100 MG IVPB ×3 (06:43→22:51)
[2022-04-20] MEDS: LEVOTHYROXINE SODIUM 50 MCG TABLET PO (06:43)
[2022-04-20] MEDS: HEPARIN SODIUM 5,000 UNITS/ML VIAL 7000 UNITS IV PUSH (06:45)
[2022-04-20] MEDS: guaiFENesin 12 HR 600 MG TABCR 1200 MG PO ×2 (09:57→22:51)
[2022-04-20] MEDS: ATORVASTATIN 20 MG TABLET PO (09:57)
[2022-04-20] MEDS: ASPIRIN 81 MG ENTERIC TABLET PO (09:57)
[2022-04-20] MEDS: PANTOPRAZOLE SODIUM IV 40 MG VIAL IV PUSH (09:57)
[2022-04-20] MEDS: AMIODARONE HCL 200 MG TABLET PO (09:57)
[2022-04-20] MEDS: METOPROLOL SUCCINATE EXT REL 50 MG TABCR PO (09:58)
[2022-04-20] MEDS: cefTRIAXone 2 GM in SODIUM CHLORIDE 0.9% IV 100 ML 200 ML IVPB (09:59)
[2022-04-20] MEDS: IPRATROPIUM BR 0.02% INH SOLN 0.5 MG/2.5 ML VIAL INHALATION ×3 (10:07→21:43)
[2022-04-20] MEDS: REMDESIVIR 100 MG/NS 250 ML 100 MG/250 ML BAG 250 MG IVPB (11:00)
--- NOTE | 2022-04-20 12:37 | P.PNIM_ITS ---
Progress Note: A&P Assessment and Plan (1) Acute respiratory failure: Code(s): J96.00 - Acute respiratory failure, unspecified whether with hypoxia or hypercapnia Status: Acute Assessment and Plan: Patient in acute respiratory failure. * ABG shows 7.4 10/05/66 on 6 L. chest x-ray showing diffuse multilobar airspace disease. ABG and CXR reviewed personally. * Tachypnea is resulting in the low pCO2 but concerned that he will tire out. * Suspect felt related to COVID with possible bacterial post COVID bacterial pneumonia (aspiration?). * White count is climbing but patient is on steroids. Still having fevers. Heart rate remains uncontrolled. * Consider CHF in the etiology due to elevated HR. He may need cardioversion. * Started on BiPAP. Pulmonary consult. Gautam catheter placed Patient is DNR status (verified with son KAMERON) Family wanted treatment with Vit C 5000mg IV once. It was explained that this is not a proven treatment for COVID and that we do not have it here and that the kenian was on VitC prior to admission. (2) Sepsis: Qualifiers: Sepsis type: sepsis due to unspecified organism Sepsis acute organ dysfunction status: without acute organ dysfunction Qualified Code(s): A41.9 - Sepsis, unspecified organism Code(s): A41.9 - Sepsis, unspecified organism Status: Acute Assessment and Plan: Sepsis present on admission related to COVID with possible bacterial PNA. * Consider aspiration as well. * Continue IV abx * Continue treatment for COVID. (3) Atrial fibrillation with RVR: Code(s): I48.91 - Unspecified atrial fibrillation Status: Acute Assessment and Plan: Patient with hx of AFib * Was on metoprolol oral but changed to IV given his condition * Started Amiodarone drip. Cardizem drip was discontinued. * Cardiology is managing. * On Heparin gtt. Eliquis stopped. * Keep in IMU on tele On oral metoprolol and amiodarone currently (4) Pneumonia due to COVID-19 virus: Code(s): U07.1 - COVID-19; J12.82 - Pneumonia due to coronavirus disease 2018 Status: Acute Assessment and Plan: Patient presents with shortness of breath. He was diagnosed with COVID on 04/12/2022. * Patient febrile * White count climbing possibly related to steroids. * Imaging is consistent with COVID and possibly bacterial pneumonia. * Blood culture NGTD * Continue Rocephin and vancomycin; add Flagyl to cover for aspiration * Continue dexamethasone and remdesivir for total 10 days (5) Pulmonary embolism: Code(s): I26.99 - Other pulmonary embolism without acute cor pulmonale Status: Acute Assessment and Plan: Patient had CTA chest 04/13 showing no PE. * Repeat CTA of the chest shows PE in the right upper lobe. * Patient has been started on heparin drip. * Patient was on Eliquis on admission * Most likely PE related to COVID. (6) Fever: Code(s): R50.9 - Fever, unspecified Status: Acute Assessment and Plan: Secondary to COVID and/or bacterial pneumonia * Continue Tylenol IV * Blood culture NGTD. * BP stable (7) Hypertension: Code(s): I10 - Essential (primary) hypertension Status: Chronic Assessment and Plan: Blood pressure reviewed on 04/17 * BP elevated at times felt related to respiratory distress * Continue metoprolol IV * Will adjust medication as needed (8) Anemia: Code(s): D64.9 - Anemia, unspecified Status: Chronic Assessment and Plan:
--- NOTE | 2022-04-20 12:37 | PM.IMPN ---
Progress Note: A&P Assessment and Plan (1) Acute respiratory failure: Code(s): J96.00 - Acute respiratory failure, unspecified whether with hypoxia or hypercapnia Status: Acute Assessment and Plan: Patient in acute respiratory failure. ABG shows 7.4 10/05/66 on 6 L. chest x-ray showing diffuse multilobar airspace disease. ABG and CXR reviewed personally. Tachypnea is resulting in the low pCO2 but concerned that he will tire out. Suspect felt related to COVID with possible bacterial post COVID bacterial pneumonia (aspiration?). White count is climbing but patient is on steroids. Still having fevers. Heart rate remains uncontrolled. Consider CHF in the etiology due to elevated HR. He may need cardioversion. Started on BiPAP. Pulmonary consult. Gautam catheter placed Patient is DNR status (verified with son KAMERON) Family wanted treatment with Vit C 5000mg IV once. It was explained that this is not a proven treatment for COVID and that we do not have it here and that the jakeeitn was on VitC prior to admission. (2) Sepsis: Qualifiers: Sepsis type: sepsis due to unspecified organism Sepsis acute organ dysfunction status: without acute organ dysfunction Qualified Code(s): A41.9 - Sepsis, unspecified organism Code(s): A41.9 - Sepsis, unspecified organism Status: Acute Assessment and Plan: Sepsis present on admission related to COVID with possible bacterial PNA. Consider aspiration as well. Continue IV abx Continue treatment for COVID. (3) Atrial fibrillation with RVR: Code(s): I48.91 - Unspecified atrial fibrillation Status: Acute Assessment and Plan: Patient with hx of AFib Was on metoprolol oral but changed to IV given his condition Started Amiodarone drip. Cardizem drip was discontinued. Cardiology is managing. On Heparin gtt. Eliquis stopped. Keep in IMU on tele On oral metoprolol and amiodarone currently (4) Pneumonia due to COVID-19 virus: Code(s): U07.1 - COVID-19; J12.82 - Pneumonia due to coronavirus disease 2018 Status: Acute Assessment and Plan: Patient presents with shortness of breath. He was diagnosed with COVID on 04/12/2022. Patient febrile White count climbing possibly related to steroids. Imaging is consistent with COVID and possibly bacterial pneumonia. Blood culture NGTD Continue Rocephin and vancomycin; add Flagyl to cover for aspiration Continue dexamethasone and remdesivir for total 10 days (5) Pulmonary embolism: Code(s): I26.99 - Other pulmonary embolism without acute cor pulmonale Status: Acute Assessment and Plan: Patient had CTA chest 04/13 showing no PE. Repeat CTA of the chest shows PE in the right upper lobe. Patient has been started on heparin drip. Patient was on Eliquis on admission Most likely PE related to COVID. (6) Fever: Code(s): R50.9 - Fever, unspecified Status: Acute Assessment and Plan: Secondary to COVID and/or bacterial pneumonia Continue Tylenol IV Blood culture NGTD. BP stable (7) Hypertension: Code(s): I10 - Essential (primary) hypertension Status: Chronic Assessment and Plan: Blood pressure reviewed on 04/17 BP elevated at times felt related to respiratory distress Continue metoprolol IV Will adjust medication as needed (8) Anemia: Code(s): D64.9 - Anemia, unspecified Status: Chronic Assessment and Plan: Patient with chronic anemia. Hgb 11.1 in December Hgb here running mostly 10-11 range Stool guaiac positive but no active bleeding noted Continue iron supplements Will closely monitor patient (9) Swallowing dysfunction: Code(s): R13.10 - Dysphagia, unspecified Status: Acute Assessment and Plan: Concern for aspiration. Speech therapy recommend modified barium swallow MBS demonstrated laryngeal penetration with thin
[2022-04-20 13:13] LABS: Alveolar/Arterial O2 Gradient 117.3 mmHg; Base Excess ABG 2.2 mEq/l (+/-2.0); Fractional Inspired Oxygen 32 %; HCO3 ABG 25.8 mEq/l (22.0-26.0); Oxygen Content ABG 15.9 %vol (16.0-22.0); Oxygen Saturation ABG 94.8 % (95.0-100.0); Oxyhemoglobin 93.4 % THb (90.0-100.0); PCO2 ABG 36.2 mmHg (35.0-45.0); PO2 ABG 68.5 mmHg (80.0-100.0); PO2 FiO2 Ratio Arterial Blood 2.14 %; Total Hemoglobin 12.1 g/dL (12.0-18.0)
[2022-04-20 13:14] LABS: Device NASAL CANNULA; Modified Allen's Test Pass; Site Drawn RIGHT RADIAL
[2022-04-20 15:14] LABS: Partial Thromboplastin Time 166.3 SECONDS (22.3-36.8)
[2022-04-20 22:26] LABS: Partial Thromboplastin Time 64.8 SECONDS (22.3-36.8)
[2022-04-20] MEDS: traZODone HCL 50 MG TABLET PO (22:51)
[2022-04-20] MEDS: HEPARIN SODIUM 5,000 UNITS/ML VIAL 3500 UNITS IV PUSH (22:52)
[2022-04-21] VITALS (22 sets, daily range): BP systolic 124–142; BP diastolic 75–91; PULSE 69–104; RESP 16–22; TEMP 36.3–36.8; O2SAT 91–99
[2022-04-21] MEDS: IPRATROPIUM BR 0.02% INH SOLN 0.5 MG/2.5 ML VIAL INHALATION ×4 (02:41→20:18)
[2022-04-21] MEDS: metroNIDAZOLE 500 MG/ISO 100ML 500 MG/100 ML BAG 100 MG IVPB ×3 (05:55→20:26)
[2022-04-21] MEDS: LEVOTHYROXINE SODIUM 50 MCG TABLET PO (05:55)
[2022-04-21 06:47] LABS: Basophils Absolute Auto 0.1 K/mm3 (0.0-0.1); Basophils Percent Auto 0.4 % (0.2-1.2); Eosinophils Absolute Auto 0.1 K/mm3 (0-0.3); Eosinophils Percent Auto 0.3 % (0-4.4); Hematocrit 32.9 % (42.0-52.0); Hemoglobin 10.2 g/dL (14.0-18.0); Immature Granulocyte Absolute 1.13 K/mm3 (0.00-0.031); Lymphocytes Absolute Auto 1.12 K/mm3 (0.9-3.2); Mean Corpuscular Hemoglobin 34.1 pg (26-34); Mean Platelet Volume 12.3 fl (7.4-10.4); Monocytes Absolute Auto 2.6 K/mm3 (0.1-0.6); Monocytes Percent Auto 11.8 % (2.6-8.5); Neutrophils Absolute Auto 17.3 K/mm3 (1.3-6.7); Neutrophils Percent Auto 77.5 % (45.5-73.1); Nucleated Red Blood Cells Absolute Auto 0.1 K/mm3 (0.0-0.012); Nucleated Red Blood Cells Perc 0.5 % (0.0-0.2); Platelet Count Result 1054 k/mm3 (150-375); Red Blood Count 2.99 M/mm3 (4.6-6.20); Red Cell Distribution Width 21.2 % (11.5-14.5); White Blood Count 22.4 K/mm3 (4.5-10.0)
[2022-04-21 07:00] LABS: Alanine Aminotransferase 49 U/L (6-50); Albumin Level 2.6 g/dL (3.5-5.1); Alkaline Phosphatase 104 U/L (38-126); Anion Gap 2 mmol/L (8-16); Aspartate Amino Transferase 57 U/L (17-59); Bilirubin,Total 0.5 mg/dL (0.2-1.3); Blood Urea Nitrogen 20 mg/dL (9-20); Calcium 7.4 mg/dL (8.4-10.2); Carbon Dioxide 30 mmol/L (22-30); Chloride 103 mmol/L (98-107); Estimated CRCL calculation 65 ml/min; Estimated Glomerular Filt Rate > 60; Glucose 92 mg/dL (65-110); Potassium 3.6 mmol/L (3.4-5.0); Sodium 135 mmol/L (137-145)
[2022-04-21 07:42] LABS: Hypochromasia 1+ (NORMAL); Platelet Estimate Increased (Adequate)
[2022-04-21 07:43] LABS: Anisocytosis 2+ (NORMAL); Macrocytosis 1+ (NORMAL); Ovalocytes 1+ (NORMAL); Schistocytes None Seen (NORMAL)
[2022-04-21 07:56] LABS: INR 1.8; Prothrombin Time 20.4 Seconds (11.1-14.7)
[2022-04-21 07:58] LABS: Partial Thromboplastin Time 110.3 SECONDS (22.3-36.8)
[2022-04-21] MEDS: HEPARIN SOD/D5W 100 UNITS/ML 25,000 UNITS/250 ML BAG 16 UNITS IV CONT (08:23)
[2022-04-21] MEDS: AMIODARONE HCL 200 MG TABLET PO (08:27)
[2022-04-21] MEDS: guaiFENesin 12 HR 600 MG TABCR 1200 MG PO ×2 (08:27→20:26)
[2022-04-21] MEDS: METOPROLOL SUCCINATE EXT REL 50 MG TABCR PO (08:30)
[2022-04-21] MEDS: ASPIRIN 81 MG ENTERIC TABLET PO (08:30)
[2022-04-21] MEDS: PANTOPRAZOLE SODIUM IV 40 MG VIAL IV PUSH (08:31)
[2022-04-21] MEDS: ATORVASTATIN 20 MG TABLET PO (09:10)
[2022-04-21] MEDS: cefTRIAXone 2 GM in SODIUM CHLORIDE 0.9% IV 100 ML 200 ML IVPB (09:12)
[2022-04-21] MEDS: REMDESIVIR 100 MG/NS 250 ML 100 MG/250 ML BAG 250 MG IVPB (10:45)
--- NOTE | 2022-04-21 11:33 | P.PNIM_ITS ---
Progress Note: A&P Assessment and Plan (1) Acute respiratory failure: Code(s): J96.00 - Acute respiratory failure, unspecified whether with hypoxia or hypercapnia Status: Acute Assessment and Plan: Patient in acute respiratory failure. * ABG shows 7.4 10/05/66 on 6 L. chest x-ray showing diffuse multilobar airspace disease. ABG and CXR reviewed personally. * Tachypnea is resulting in the low pCO2 but concerned that he will tire out. * Suspect felt related to COVID with possible bacterial post COVID bacterial pneumonia (aspiration?). * White count is climbing but patient is on steroids. * Consider CHF in the etiology due to elevated HR. He may need cardioversion. * Started on BiPAP. Pulmonary consult. Gautam catheter placed Patient is DNR status (verified with son KAMERON) Family wanted treatment with Vit C 5000mg IV once. It was explained that this is not a proven treatment for COVID and that we do not have it here and that the pateitn was on VitC prior to admission. (2) Sepsis: Qualifiers: Sepsis type: sepsis due to unspecified organism Sepsis acute organ dysfunction status: without acute organ dysfunction Qualified Code(s): A41.9 - Sepsis, unspecified organism Code(s): A41.9 - Sepsis, unspecified organism Status: Acute Assessment and Plan: Sepsis present on admission related to COVID with possible bacterial PNA. * Consider aspiration as well. * Continue IV abx * Continue treatment for COVID. ceftriaxone since 04/15/2022 dexamethasone 04/13 to 04/23 planned Remdesivir started 04/17/2022. Restart remdesivir for 5 more days Vancomycin 04/15/2022 Metronidazole 04/17/2022 Received tocilizumab 04/17/2022 (3) Atrial fibrillation with RVR: Code(s): I48.91 - Unspecified atrial fibrillation Status: Acute Assessment and Plan: Patient with hx of AFib * Was on metoprolol oral but changed to IV given his condition * Started Amiodarone drip. Cardizem drip was discontinued. * Cardiology is managing. * On Heparin gtt. Eliquis stopped. * Keep in IMU on tele On oral metoprolol and amiodarone currently (4) Pneumonia due to COVID-19 virus: Code(s): U07.1 - COVID-19; J12.82 - Pneumonia due to coronavirus disease 2019 Status: Acute Assessment and Plan: Patient presents with shortness of breath. He was diagnosed with COVID on 04/12/2022. * Patient febrile * White count climbing possibly related to steroids. * Imaging is consistent with COVID and possibly bacterial pneumonia. * Blood culture NGTD * Continue Rocephin and vancomycin; add Flagyl to cover for aspiration * Continue dexamethasone and remdesivir for total 10 days (5) Pulmonary embolism: Code(s): I26.99 - Other pulmonary embolism without acute cor pulmonale Status: Acute Assessment and Plan: Patient had CTA chest 04/13 showing no PE. * Repeat CTA of the chest shows PE in the right upper lobe. * Patient has been started on heparin drip. * Patient was on Eliquis on admission * Most likely PE related to COVID. switch heparin drip to Eliquis today full-dose (6) Fever: Code(s): R50.9 - Fever, unspecified Status: Acute Assessment and Plan: Secondary to COVID and/or bacterial pneumonia * Continue Tylenol IV * Blood culture NGTD. * BP stable (7) Hypertension: Code(s): I10 - Essential (primary) hypertension Status: Chronic Assessment and Plan: Blood pressure reviewed on 04/17 * BP elevated at times felt related to respiratory distre
--- NOTE | 2022-04-21 11:33 | PM.IMPN ---
Progress Note: A&P Assessment and Plan (1) Acute respiratory failure: Code(s): J96.00 - Acute respiratory failure, unspecified whether with hypoxia or hypercapnia Status: Acute Assessment and Plan: Patient in acute respiratory failure. ABG shows 7.4 10/05/66 on 6 L. chest x-ray showing diffuse multilobar airspace disease. ABG and CXR reviewed personally. Tachypnea is resulting in the low pCO2 but concerned that he will tire out. Suspect felt related to COVID with possible bacterial post COVID bacterial pneumonia (aspiration?). White count is climbing but patient is on steroids. Consider CHF in the etiology due to elevated HR. He may need cardioversion. Started on BiPAP. Pulmonary consult. Gautam catheter placed Patient is DNR status (verified with son KAMERON) Family wanted treatment with Vit C 5000mg IV once. It was explained that this is not a proven treatment for COVID and that we do not have it here and that the jakeeitn was on VitC prior to admission. (2) Sepsis: Qualifiers: Sepsis type: sepsis due to unspecified organism Sepsis acute organ dysfunction status: without acute organ dysfunction Qualified Code(s): A41.9 - Sepsis, unspecified organism Code(s): A41.9 - Sepsis, unspecified organism Status: Acute Assessment and Plan: Sepsis present on admission related to COVID with possible bacterial PNA. Consider aspiration as well. Continue IV abx Continue treatment for COVID. ceftriaxone since 04/15/2022 dexamethasone 04/13 to 04/23 planned Remdesivir started 04/17/2022. Restart remdesivir for 5 more days Vancomycin 04/15/2022 Metronidazole 04/17/2022 Received tocilizumab 04/17/2022 (3) Atrial fibrillation with RVR: Code(s): I48.91 - Unspecified atrial fibrillation Status: Acute Assessment and Plan: Patient with hx of AFib Was on metoprolol oral but changed to IV given his condition Started Amiodarone drip. Cardizem drip was discontinued. Cardiology is managing. On Heparin gtt. Eliquis stopped. Keep in IMU on tele On oral metoprolol and amiodarone currently (4) Pneumonia due to COVID-19 virus: Code(s): U07.1 - COVID-19; J12.82 - Pneumonia due to coronavirus disease 2018 Status: Acute Assessment and Plan: Patient presents with shortness of breath. He was diagnosed with COVID on 04/12/2022. Patient febrile White count climbing possibly related to steroids. Imaging is consistent with COVID and possibly bacterial pneumonia. Blood culture NGTD Continue Rocephin and vancomycin; add Flagyl to cover for aspiration Continue dexamethasone and remdesivir for total 10 days (5) Pulmonary embolism: Code(s): I26.99 - Other pulmonary embolism without acute cor pulmonale Status: Acute Assessment and Plan: Patient had CTA chest 04/13 showing no PE. Repeat CTA of the chest shows PE in the right upper lobe. Patient has been started on heparin drip. Patient was on Eliquis on admission Most likely PE related to COVID. switch heparin drip to Eliquis today full-dose (6) Fever: Code(s): R50.9 - Fever, unspecified Status: Acute Assessment and Plan: Secondary to COVID and/or bacterial pneumonia Continue Tylenol IV Blood culture NGTD. BP stable (7) Hypertension: Code(s): I10 - Essential (primary) hypertension Status: Chronic Assessment and Plan: Blood pressure reviewed on 04/17 BP elevated at times felt related to respiratory distress Continue metoprolol IV Will adjust medication as needed (8) Anemia: Code(s): D64.9 - Anemia, unspecified Status: Chronic Assessment and Plan: Patient with chronic anemia. Hgb 11.1 in December Hgb here running mostly 10-11 range Stool guaiac positive but no active bleeding noted Continue iron supplements Will closely monitor patient (9) Swallowing dysfunction: Code(s): R1
[2022-04-21] MEDS: APIXABAN 5 MG TABLET 10 MG PO ×2 (11:59→20:26)
[2022-04-21] MEDS: traZODone HCL 50 MG TABLET PO (20:26)
[2022-04-22] VITALS (23 sets, daily range): BP systolic 123–149; BP diastolic 73–91; PULSE 70–97; RESP 16–22; TEMP 36.3–36.8; O2SAT 88–100
[2022-04-22] MEDS: IPRATROPIUM BR 0.02% INH SOLN 0.5 MG/2.5 ML VIAL INHALATION ×4 (02:46→20:12)
[2022-04-22 04:22] LABS: Basophils Absolute Auto 0.1 K/mm3 (0.0-0.1); Basophils Percent Auto 0.4 % (0.2-1.2); Eosinophils Absolute Auto 0.1 K/mm3 (0-0.3); Eosinophils Percent Auto 0.2 % (0-4.4); Hemoglobin 10.7 g/dL (14.0-18.0); Immature Granulocyte Absolute 1.28 K/mm3 (0.00-0.031); Immature Granulocyte Percent A 5.7 % (0-0.5); Lymphocytes Absolute Auto 1.14 K/mm3 (0.9-3.2); Lymphocytes Percent Auto 5.1 % (18.3-44.2); Mean Corpuscular HGB Conc 30.6 g/dl (32-36); Mean Corpuscular Hemoglobin 33.8 pg (26-34); Mean Corpuscular Volume 110.4 fl (80-100); Mean Platelet Volume 12.3 fl (7.4-10.4); Monocytes Absolute Auto 2.4 K/mm3 (0.1-0.6); Monocytes Percent Auto 10.6 % (2.6-8.5); Neutrophils Absolute Auto 17.5 K/mm3 (1.3-6.7); Nucleated Red Blood Cells Absolute Auto 0.2 K/mm3 (0.0-0.012); Nucleated Red Blood Cells Perc 0.8 % (0.0-0.2); Platelet Count Result 1141 k/mm3 (150-375); Red Blood Count 3.17 M/mm3 (4.6-6.20); Red Cell Distribution Width 21.4 % (11.5-14.5); White Blood Count 22.5 K/mm3 (4.5-10.0)
[2022-04-22 04:32] LABS: INR 2.4; Prothrombin Time 25.5 Seconds (11.1-14.7)
[2022-04-22 04:41] LABS: Alanine Aminotransferase 50 U/L (6-50); Albumin Level 2.9 g/dL (3.5-5.1); Alkaline Phosphatase 114 U/L (38-126); Anion Gap 4 mmol/L (8-16); Aspartate Amino Transferase 53 U/L (17-59); Bilirubin,Total 0.7 mg/dL (0.2-1.3); Blood Urea Nitrogen 18 mg/dL (9-20); CRP 1.8 mg/dL (<1.0); Carbon Dioxide 28 mmol/L (22-30); Chloride 105 mmol/L (98-107); Estimated CRCL calculation 65 ml/min; Estimated Glomerular Filt Rate > 60; Glucose 84 mg/dL (65-110); Potassium 3.6 mmol/L (3.4-5.0); Sodium 137 mmol/L (137-145)
[2022-04-22 04:53] LABS: Anisocytosis 2+ (NORMAL); Macrocytosis 2+ (NORMAL); Platelet Estimate Increased (Adequate); Poikilocytosis 2+ (NORMAL)
[2022-04-22 04:54] LABS: Microcytosis 1+ (NORMAL); Tear Drop Cells 1+ (NORMAL)
[2022-04-22 04:55] LABS: Schistocytes None Seen (NORMAL)
[2022-04-22] MEDS: metroNIDAZOLE 500 MG/ISO 100ML 500 MG/100 ML BAG 100 MG IVPB ×3 (05:28→22:53)
[2022-04-22] MEDS: LEVOTHYROXINE SODIUM 50 MCG TABLET PO (05:29)
[2022-04-22] MEDS: cefTRIAXone 2 GM in SODIUM CHLORIDE 0.9% IV 100 ML 200 ML IVPB (09:10)
[2022-04-22] MEDS: PANTOPRAZOLE SODIUM IV 40 MG VIAL IV PUSH (09:13)
[2022-04-22] MEDS: guaiFENesin 12 HR 600 MG TABCR 1200 MG PO ×2 (09:13→20:14)
[2022-04-22] MEDS: METOPROLOL SUCCINATE EXT REL 50 MG TABCR PO (09:13)
[2022-04-22] MEDS: ATORVASTATIN 20 MG TABLET PO (09:14)
[2022-04-22] MEDS: AMIODARONE HCL 200 MG TABLET PO (09:14)
[2022-04-22] MEDS: ASPIRIN 81 MG ENTERIC TABLET PO (09:15)
[2022-04-22] MEDS: APIXABAN 5 MG TABLET 10 MG PO ×2 (09:18→20:13)
--- NOTE | 2022-04-22 09:57 | P.PNIM_ITS ---
Progress Note: A&P Assessment and Plan (1) Acute respiratory failure: Code(s): J96.00 - Acute respiratory failure, unspecified whether with hypoxia or hypercapnia Status: Acute Assessment and Plan: Patient in acute respiratory failure. * ABG shows 7.4 10/05/66 on 6 L. chest x-ray showing diffuse multilobar airspace disease. ABG and CXR reviewed personally. * Tachypnea is resulting in the low pCO2 but concerned that he will tire out. * Suspect felt related to COVID with possible bacterial post COVID bacterial pneumonia (aspiration?). * White count is climbing but patient is on steroids. * Consider CHF in the etiology due to elevated HR. He may need cardioversion. * Started on BiPAP. Pulmonary consult. Gautam catheter placed. off bipap now Patient is DNR status (verified with son KAMERON) Family wanted treatment with Vit C 5000mg IV once. It was explained that this is not a proven treatment for COVID and that we do not have it here and that the kenian was on VitC prior to admission. give a dose of lasdix 04/22 (2) Sepsis: Qualifiers: Sepsis acute organ dysfunction status: without acute organ dysfunction Sepsis type: sepsis due to unspecified organism Qualified Code(s): A41.9 - Sepsis, unspecified organism Code(s): A41.9 - Sepsis, unspecified organism Status: Acute Assessment and Plan: Sepsis present on admission related to COVID with possible bacterial PNA. * Consider aspiration as well. * Continue IV abx * Continue treatment for COVID. ceftriaxone since 04/15/2022 dexamethasone 04/13 to 04/23 planned Remdesivir started 04/17/2022. Restart remdesivir for 5 more days Vancomycin 04/15/2022 Metronidazole 04/17/2022 Received tocilizumab 04/17/2022 wbc count onth rise, could be from steroid, clinically imporved. (3) Atrial fibrillation with RVR: Code(s): I48.91 - Unspecified atrial fibrillation Status: Acute Assessment and Plan: Patient with hx of AFib * Was on metoprolol oral but changed to IV given his condition * Started Amiodarone drip. Cardizem drip was discontinued. * Cardiology is managing. * On Heparin gtt. Eliquis stopped. * Keep in IMU on tele On oral metoprolol and amiodarone currently (4) Pneumonia due to COVID-19 virus: Code(s): U07.1 - COVID-19; J12.82 - Pneumonia due to coronavirus disease 2019 Status: Acute Assessment and Plan: Patient presents with shortness of breath. He was diagnosed with COVID on 04/12/2022. * Patient febrile * White count climbing possibly related to steroids. * Imaging is consistent with COVID and possibly bacterial pneumonia. * Blood culture NGTD * Continue Rocephin and vancomycin; add Flagyl to cover for aspiration * Continue dexamethasone and remdesivir for total 10 days (5) Pulmonary embolism: Code(s): I26.99 - Other pulmonary embolism without acute cor pulmonale Status: Acute Assessment and Plan: Patient had CTA chest 04/13 showing no PE. * Repeat CTA of the chest shows PE in the right upper lobe. * Patient has been started on heparin drip. * Patient was on Eliquis on admission * Most likely PE related to COVID. switch heparin drip to Eliquis today full-dose (6) Fever: Code(s): R50.9 - Fever, unspecified Status: Acute Assessment and Plan: Secondary to COVID and/or bacterial pneumonia * Continue Tylenol IV * Blood culture NGTD. * BP stable (7) Hypertension: Code(s): I10 - Essential (primary) hypertension Status: Chronic Ass
--- NOTE | 2022-04-22 09:57 | PM.IMPN ---
Progress Note: A&P Assessment and Plan (1) Acute respiratory failure: Code(s): J96.00 - Acute respiratory failure, unspecified whether with hypoxia or hypercapnia Status: Acute Assessment and Plan: Patient in acute respiratory failure. ABG shows 7.4 10/05/66 on 6 L. chest x-ray showing diffuse multilobar airspace disease. ABG and CXR reviewed personally. Tachypnea is resulting in the low pCO2 but concerned that he will tire out. Suspect felt related to COVID with possible bacterial post COVID bacterial pneumonia (aspiration?). White count is climbing but patient is on steroids. Consider CHF in the etiology due to elevated HR. He may need cardioversion. Started on BiPAP. Pulmonary consult. Gautam catheter placed. off bipap now Patient is DNR status (verified with son KAMERON) Family wanted treatment with Vit C 5000mg IV once. It was explained that this is not a proven treatment for COVID and that we do not have it here and that the pateitn was on VitC prior to admission. give a dose of lasdix 04/22 (2) Sepsis: Qualifiers: Sepsis acute organ dysfunction status: without acute organ dysfunction Sepsis type: sepsis due to unspecified organism Qualified Code(s): A41.9 - Sepsis, unspecified organism Code(s): A41.9 - Sepsis, unspecified organism Status: Acute Assessment and Plan: Sepsis present on admission related to COVID with possible bacterial PNA. Consider aspiration as well. Continue IV abx Continue treatment for COVID. ceftriaxone since 04/15/2022 dexamethasone 04/13 to 04/23 planned Remdesivir started 04/17/2022. Restart remdesivir for 5 more days Vancomycin 04/15/2022 Metronidazole 04/17/2022 Received tocilizumab 04/17/2022 wbc count onth rise, could be from steroid, clinically imporved. (3) Atrial fibrillation with RVR: Code(s): I48.91 - Unspecified atrial fibrillation Status: Acute Assessment and Plan: Patient with hx of AFib Was on metoprolol oral but changed to IV given his condition Started Amiodarone drip. Cardizem drip was discontinued. Cardiology is managing. On Heparin gtt. Eliquis stopped. Keep in IMU on tele On oral metoprolol and amiodarone currently (4) Pneumonia due to COVID-19 virus: Code(s): U07.1 - COVID-19; J12.82 - Pneumonia due to coronavirus disease 2019 Status: Acute Assessment and Plan: Patient presents with shortness of breath. He was diagnosed with COVID on 04/12/2022. Patient febrile White count climbing possibly related to steroids. Imaging is consistent with COVID and possibly bacterial pneumonia. Blood culture NGTD Continue Rocephin and vancomycin; add Flagyl to cover for aspiration Continue dexamethasone and remdesivir for total 10 days (5) Pulmonary embolism: Code(s): I26.99 - Other pulmonary embolism without acute cor pulmonale Status: Acute Assessment and Plan: Patient had CTA chest 04/13 showing no PE. Repeat CTA of the chest shows PE in the right upper lobe. Patient has been started on heparin drip. Patient was on Eliquis on admission Most likely PE related to COVID. switch heparin drip to Eliquis today full-dose (6) Fever: Code(s): R50.9 - Fever, unspecified Status: Acute Assessment and Plan: Secondary to COVID and/or bacterial pneumonia Continue Tylenol IV Blood culture NGTD. BP stable (7) Hypertension: Code(s): I10 - Essential (primary) hypertension Status: Chronic Assessment and Plan: Blood pressure reviewed on 04/17 BP elevated at times felt related to respiratory distress Continue metoprolol IV Will adjust medication as needed (8) Anemia: Code(s): D64.9 - Anemia, unspecified Status: Chronic Assessment and Plan: Patient with chronic anemia. Hgb 11.1 in December Hgb here running mostly 10-11 range Stool guaiac positive but no active bleeding noted
[2022-04-22] MEDS: REMDESIVIR 100 MG/NS 250 ML 100 MG/250 ML BAG 250 MG IVPB (11:14)
[2022-04-22] MEDS: FUROSEMIDE INJ 40 MG/4 ML VIAL IV PUSH (11:15)
[2022-04-22] MEDS: traZODone HCL 50 MG TABLET PO (20:13)
[2022-04-23] VITALS (26 sets, daily range): BP systolic 87–168; BP diastolic 57–88; PULSE 59–133; RESP 18–28; TEMP 36–36.7; O2SAT 94–99
[2022-04-23] MEDS: IPRATROPIUM BR 0.02% INH SOLN 0.5 MG/2.5 ML VIAL INHALATION ×4 (02:10→21:14)
[2022-04-23 04:21] LABS: Hematocrit 32.8 % (42.0-52.0); Hemoglobin 10.1 g/dL (14.0-18.0); Immature Platelet Fraction Pct 12.8 % (0.9-11.2); Mean Corpuscular HGB Conc 30.8 g/dl (32-36); Mean Corpuscular Volume 107.2 fl (80-100); Mean Platelet Volume 12.2 fl (7.4-10.4); Platelet Count Result 1432 k/mm3 (150-375); Red Blood Count 3.06 M/mm3 (4.6-6.20); Red Cell Distribution Width 21.4 % (11.5-14.5); White Blood Count 23.5 K/mm3 (4.5-10.0)
[2022-04-23 04:31] LABS: INR 2.8; Prothrombin Time 28.5 Seconds (11.1-14.7)
[2022-04-23 04:34] LABS: Alanine Aminotransferase 44 U/L (6-50); Albumin Level 2.8 g/dL (3.5-5.1); Alkaline Phosphatase 104 U/L (38-126); Anion Gap 1 mmol/L (8-16); Aspartate Amino Transferase 54 U/L (17-59); Bilirubin,Total 0.7 mg/dL (0.2-1.3); Blood Urea Nitrogen 21 mg/dL (9-20); Calcium 7.8 mg/dL (8.4-10.2); Carbon Dioxide 29 mmol/L (22-30); Chloride 101 mmol/L (98-107); Estimated CRCL calculation 74 ml/min; Estimated Glomerular Filt Rate > 60; Glucose 102 mg/dL (65-110); Magnesium 1.9 mg/dL (1.6-2.3); Potassium 3.4 mmol/L (3.4-5.0); Sodium 131 mmol/L (137-145)
[2022-04-23 05:01] LABS: Vancomycin Trough 22.7 ug/mL (10.0-20.0)
[2022-04-23 05:10] LABS: Band Neutrophils Percent 3 % (0-6); Giant Platelets Present; Large Platelets Present; Lymphocytes Absolute Manual 0.23 K/mm3 (1.1-4.5); Metamyelocytes Percent 1 %; Monocytes Absolute Manual 1.64 K/mm3 (0.1-0.90); Monocytes Percent Manual 7 % (3-9); Neutrophils Absolute Manual 21.38 K/mm3 (1.3-6.7); Neutrophils Percent Manual 88 % (46-73); Platelet Estimate Increased (Adequate); Total Cells Counted 100
[2022-04-23 05:11] LABS: Anisocytosis 3+ (NORMAL); Hypochromasia 2+ (NORMAL); Macrocytosis 1+ (NORMAL); Microcytosis 2+ (NORMAL); Poikilocytosis 2+ (NORMAL); Schistocytes None Seen (NORMAL); Target Cells 1+ (NORMAL)
[2022-04-23] MEDS: LEVOTHYROXINE SODIUM 50 MCG TABLET PO (05:30)
[2022-04-23] MEDS: metroNIDAZOLE 500 MG/ISO 100ML 500 MG/100 ML BAG 100 MG IVPB ×3 (05:31→21:27)
[2022-04-23] MEDS: ASPIRIN 81 MG ENTERIC TABLET PO (09:23)
[2022-04-23] MEDS: APIXABAN 5 MG TABLET 10 MG PO ×2 (09:23→20:37)
[2022-04-23] MEDS: AMIODARONE HCL 200 MG TABLET PO (09:23)
[2022-04-23] MEDS: METOPROLOL SUCCINATE EXT REL 50 MG TABCR PO (09:24)
[2022-04-23] MEDS: guaiFENesin 12 HR 600 MG TABCR 1200 MG PO ×2 (09:24→20:37)
[2022-04-23] MEDS: ATORVASTATIN 20 MG TABLET PO (09:24)
[2022-04-23] MEDS: PANTOPRAZOLE SODIUM IV 40 MG VIAL IV PUSH (09:24)
[2022-04-23] MEDS: cefTRIAXone 2 GM in SODIUM CHLORIDE 0.9% IV 100 ML 200 ML IVPB (09:29)
--- NOTE | 2022-04-23 09:53 | P.PNIM_ITS ---
Progress Note: A&P Assessment and Plan (1) Acute respiratory failure: Code(s): J96.00 - Acute respiratory failure, unspecified whether with hypoxia or hypercapnia Status: Acute Assessment and Plan: Patient in acute respiratory failure. * ABG shows 7.4 10/05/66 on 6 L. chest x-ray showing diffuse multilobar airspace disease. ABG and CXR reviewed personally. * Tachypnea is resulting in the low pCO2 but concerned that he will tire out. * Suspect felt related to COVID with possible bacterial post COVID bacterial pneumonia (aspiration?). * White count is climbing but patient is on steroids. * Consider CHF in the etiology due to elevated HR. He may need cardioversion. * Started on BiPAP. Pulmonary consult. Gautam catheter placed. off bipap now Patient is DNR status (verified with son KAMERON) Family wanted treatment with Vit C 5000mg IV once. It was explained that this is not a proven treatment for COVID and that we do not have it here and that the jakeeitn was on VitC prior to admission. give a dose of Lasix 04/22: Good diuresis Oxygen requirement stable 04/23/2022. (2) Sepsis: Qualifiers: Sepsis type: sepsis due to unspecified organism Sepsis acute organ dysfunction status: without acute organ dysfunction Qualified Code(s): A41.9 - Sepsis, unspecified organism Code(s): A41.9 - Sepsis, unspecified organism Status: Acute Assessment and Plan: Sepsis present on admission related to COVID with possible bacterial PNA. * Consider aspiration as well. * Continue IV abx * Continue treatment for COVID. ceftriaxone since 04/15/2022 dexamethasone 04/13 to 04/23 planned Remdesivir started 04/17/2022. Restart remdesivir for 5 more days concluded on 04/26/2022 Vancomycin 04/15/2022 Metronidazole 04/17/2022 Received tocilizumab 04/17/2022 wbc count onth rise, could be from steroid, clinically imporved however continues to rise will do CT chest abdomen pelvis to further evaluate. (3) Atrial fibrillation with RVR: Code(s): I48.91 - Unspecified atrial fibrillation Status: Acute Assessment and Plan: Patient with hx of AFib * Was on metoprolol oral but changed to IV given his condition * Started Amiodarone drip. Cardizem drip was discontinued. * Cardiology is managing. * On Heparin gtt. Eliquis stopped. * Keep in IMU on tele On oral metoprolol and amiodarone currently (4) Pneumonia due to COVID-19 virus: Code(s): U07.1 - COVID-19; J12.82 - Pneumonia due to coronavirus disease 2019 Status: Acute Assessment and Plan: Patient presents with shortness of breath. He was diagnosed with COVID on 04/12/2022. * Patient febrile * White count climbing possibly related to steroids. * Imaging is consistent with COVID and possibly bacterial pneumonia. * Blood culture NGTD * Continue Rocephin and vancomycin; add Flagyl to cover for aspiration * Continue dexamethasone and remdesivir for total 10 days (5) Pulmonary embolism: Code(s): I26.99 - Other pulmonary embolism without acute cor pulmonale Status: Acute Assessment and Plan: Patient had CTA chest 04/13 showing no PE. * Repeat CTA of the chest shows PE in the right upper lobe. * Patient has been started on heparin drip. * Patient was on Eliquis on admission * Most likely PE related to COVID. switch heparin drip to Eliquis full-dose (6) Fever: Code(s): R50.9 - Fever, unspecified Status: Acute Assessment and Plan: Secondary to COVID and/or bacterial pneumonia * Continue Tylenol IV * Blood culture NGT
--- NOTE | 2022-04-23 09:53 | PM.IMPN ---
Progress Note: A&P Assessment and Plan (1) Acute respiratory failure: Code(s): J96.00 - Acute respiratory failure, unspecified whether with hypoxia or hypercapnia Status: Acute Assessment and Plan: Patient in acute respiratory failure. ABG shows 7.4 10/05/66 on 6 L. chest x-ray showing diffuse multilobar airspace disease. ABG and CXR reviewed personally. Tachypnea is resulting in the low pCO2 but concerned that he will tire out. Suspect felt related to COVID with possible bacterial post COVID bacterial pneumonia (aspiration?). White count is climbing but patient is on steroids. Consider CHF in the etiology due to elevated HR. He may need cardioversion. Started on BiPAP. Pulmonary consult. Gautam catheter placed. off bipap now Patient is DNR status (verified with son KAMERON) Family wanted treatment with Vit C 5000mg IV once. It was explained that this is not a proven treatment for COVID and that we do not have it here and that the pateitn was on VitC prior to admission. give a dose of Lasix 04/22: Good diuresis Oxygen requirement stable 04/23/2022. (2) Sepsis: Qualifiers: Sepsis type: sepsis due to unspecified organism Sepsis acute organ dysfunction status: without acute organ dysfunction Qualified Code(s): A41.9 - Sepsis, unspecified organism Code(s): A41.9 - Sepsis, unspecified organism Status: Acute Assessment and Plan: Sepsis present on admission related to COVID with possible bacterial PNA. Consider aspiration as well. Continue IV abx Continue treatment for COVID. ceftriaxone since 04/15/2022 dexamethasone 04/13 to 04/23 planned Remdesivir started 04/17/2022. Restart remdesivir for 5 more days concluded on 04/26/2022 Vancomycin 04/15/2022 Metronidazole 04/17/2022 Received tocilizumab 04/17/2022 wbc count onth rise, could be from steroid, clinically imporved however continues to rise will do CT chest abdomen pelvis to further evaluate. (3) Atrial fibrillation with RVR: Code(s): I48.91 - Unspecified atrial fibrillation Status: Acute Assessment and Plan: Patient with hx of AFib Was on metoprolol oral but changed to IV given his condition Started Amiodarone drip. Cardizem drip was discontinued. Cardiology is managing. On Heparin gtt. Eliquis stopped. Keep in IMU on tele On oral metoprolol and amiodarone currently (4) Pneumonia due to COVID-19 virus: Code(s): U07.1 - COVID-19; J12.82 - Pneumonia due to coronavirus disease 2019 Status: Acute Assessment and Plan: Patient presents with shortness of breath. He was diagnosed with COVID on 04/12/2022. Patient febrile White count climbing possibly related to steroids. Imaging is consistent with COVID and possibly bacterial pneumonia. Blood culture NGTD Continue Rocephin and vancomycin; add Flagyl to cover for aspiration Continue dexamethasone and remdesivir for total 10 days (5) Pulmonary embolism: Code(s): I26.99 - Other pulmonary embolism without acute cor pulmonale Status: Acute Assessment and Plan: Patient had CTA chest 04/13 showing no PE. Repeat CTA of the chest shows PE in the right upper lobe. Patient has been started on heparin drip. Patient was on Eliquis on admission Most likely PE related to COVID. switch heparin drip to Eliquis full-dose (6) Fever: Code(s): R50.9 - Fever, unspecified Status: Acute Assessment and Plan: Secondary to COVID and/or bacterial pneumonia Continue Tylenol IV Blood culture NGTD. BP stable (7) Hypertension: Code(s): I10 - Essential (primary) hypertension Status: Chronic Assessment and Plan: Blood pressure reviewed on 04/17 BP elevated at times felt related to respiratory distress Continue metoprolol IV Will adjust medication as needed (8) Anemia: Code(s): D64.9 - Anemia, unspecified Status: Chronic Assessment and Plan
[2022-04-23] MEDS: REMDESIVIR 100 MG/NS 250 ML 100 MG/250 ML BAG 250 MG IVPB (10:25)
[2022-04-23] MEDS: ACETAMINOPHEN 325 MG TABLET 650 MG PO (11:55)
--- NOTE | 2022-04-23 13:33 | PC.NURSE ---
This patient, Fadi Best, was transferred to [[id number] ] on 04/23/22 at 1317. Personal belongings sent with patient. Report given to [Tyson CORDOVA ]. Appropriate documentation sent with patient.
--- NOTE | 2022-04-23 14:21 | PCPTNOTE ---
Attempted to see patient for PT, however patient was having increase confusion and refused therapy.
[2022-04-23] MEDS: SODIUM CHLORIDE 0.9% IV 250 ML 999 ML IV CONT (16:22)
[2022-04-23] MEDS: METOPROLOL TARTRATE INJ 5 MG/5 ML VIAL 2.5 MG IV PUSH ×2 (17:07→20:34)
[2022-04-23] MEDS: traZODone HCL 50 MG TABLET PO (20:37)
[2022-04-24] VITALS: PULSE 113
[2022-04-24] MEDS: IPRATROPIUM BR 0.02% INH SOLN 0.5 MG/2.5 ML VIAL INHALATION (02:28)
[2022-04-24 02:30] VITALS: PULSE 74; RESP 20
[2022-04-24 02:49] VITALS: PULSE 78; RESP 20
[2022-04-24 02:58] VITALS: BP 99/58; PULSE 103; RESP 24; TEMP 36; O2SAT 91
[2022-04-24 04:00] VITALS: PULSE 120
[2022-04-24 05:34] LABS: Basophils Absolute Auto 0.2 K/mm3 (0.0-0.1); Basophils Percent Auto 0.4 % (0.2-1.2); Hematocrit 27.9 % (42.0-52.0); Hemoglobin 8.1 g/dL (14.0-18.0); Immature Granulocyte Absolute 4.93 K/mm3 (0.00-0.031); Immature Granulocyte Percent A 10.5 % (0-0.5); Immature Platelet Fraction Pct 15.5 % (0.9-11.2); Lymphocytes Absolute Auto 3.64 K/mm3 (0.9-3.2); Lymphocytes Percent Auto 7.7 % (18.3-44.2); Mean Corpuscular Hemoglobin 32.7 pg (26-34); Mean Corpuscular Volume 112.5 fl (80-100); Mean Platelet Volume 12.4 fl (7.4-10.4); Monocytes Absolute Auto 7.4 K/mm3 (0.1-0.6); Monocytes Percent Auto 15.7 % (2.6-8.5); Neutrophils Absolute Auto 30.9 K/mm3 (1.3-6.7); Neutrophils Percent Auto 65.7 % (45.5-73.1); Nucleated Red Blood Cells Absolute Auto 3.2 K/mm3 (0.0-0.012); Platelet Count Result 2656 k/mm3 (150-375); Red Blood Count 2.48 M/mm3 (4.6-6.20); Red Cell Distribution Width 22.3 % (11.5-14.5)
[2022-04-24 05:44] LABS: Albumin Level 2.6 g/dL (3.5-5.1); Alkaline Phosphatase 84 U/L (38-126); Anion Gap 12 mmol/L (8-16); Aspartate Amino Transferase 60 U/L (17-59); Bilirubin,Total 0.8 mg/dL (0.2-1.3); Blood Urea Nitrogen 29 mg/dL (9-20); Calcium 7.7 mg/dL (8.4-10.2); Carbon Dioxide 20 mmol/L (22-30); Chloride 103 mmol/L (98-107); Estimated CRCL calculation 38 ml/min; Estimated Glomerular Filt Rate 36; Glucose 157 mg/dL (65-110); INR 4.6; Potassium 4.6 mmol/L (3.4-5.0); Prothrombin Time 41.9 Seconds (11.1-14.7); Sodium 135 mmol/L (137-145)
[2022-04-24 05:59] LABS: Platelet Estimate Increased (Adequate)
[2022-04-24 06:00] LABS: Alanine Aminotransferase 53 U/L (6-50); Poikilocytosis 2+ (NORMAL)
[2022-04-24 06:01] LABS: Schistocytes Rare (NORMAL)
[2022-04-24 06:12] LABS: Nucleated Red Blood Cells Perc 6.7 % (0.0-0.2)
[2022-04-24] MEDS: LEVOTHYROXINE SODIUM 50 MCG TABLET PO (06:31)
[2022-04-24] MEDS: metroNIDAZOLE 500 MG/ISO 100ML 500 MG/100 ML BAG 100 MG IVPB (06:31)
[2022-04-24] MEDS: cefTRIAXone 2 GM in SODIUM CHLORIDE 0.9% IV 100 ML 200 ML IVPB (08:06)
--- NOTE | 2022-04-24 08:31 | PM.DDS ---
Discharge Summary Probable Cause of Probable Cause of : retroperitoneal bleed coagulopathy Pneumonia Sepsis Summary Hospital Course: THe patient is s 81 yo male who presented with acute respiratory failure with hypoxia initially requirinng bipap support subsequently was switched to nasal cannula. Patient was noted to have cxr with diffuse multilobar airspace disease. he was positive for COVID as well. treated with remdesivir and decadron. also received a dose of tocilizumab.his oxygen requirement improved initially during the hospital stay. he was diagnsoedw ith sepsis and there was also suspicion of aspiration. he also had afib with rvr on admission. cardiology was consulted and was placed on amiodarone gtt. he was on eliquis for anticoagulation. his afib with controlled onmetoprolol and amiodarone. with worsening sob on 04/16/2022, repeat CTA was done which showed right upper lobe PE< which was suspected to be related to COVID infection itself. he was switched to heparin gtt. his clutures were all negative. his respiratory status slowly iimproved, howeer he persistently had worsening thrombocytosis and leukocytosis for which CT scan was repeated which showed extensive intramuscular hematoma and also retroperitoneal hematoma. his anticoagulation was held, kcentra treatment and vit K and transexamic acid was planned. case was discussed with snaker tractor driver. However he quickly went into vfib/ asystole on 04/24/2022 around 8. His code status was confirmed do not resuscitate. he was pronounced at 8: 17 am. Amilcar, who is the POA was on the phone during this event and was updated regarding his demise.
== END 2022-04-24 08:17 | disposition expired | DRG 871 ==
LOC: ANHED 18:46 → ANHIMU 23:28 → ANH2MED 04-23 13:31
PROVIDERS: Family Medicine; Internal Medicine; Internal Medicine Cardiovascular Disease; Nurse Practitioner; Nurse Practitioner Adult Health; Physician Assistant; Admitting Provider Internal Medicine; Emergency Provider Emergency Medicine; Visit Provider Internal Medicine
DX: A41.89 Other specified sepsis (principal); I26.99 Other pulmonary embolism without acute cor pulmonale; J12.82 Pneumonia due to coronavirus disease 2019; U07.1 COVID-19; J69.0 Pneumonitis due to inhalation of food and vomit; J15.9 Unspecified bacterial pneumonia; J96.01 Acute respiratory failure with hypoxia; K66.1 Hemoperitoneum; N39.0 Urinary tract infection, site not specified; M79.81 Nontraumatic hematoma of soft tissue; I48.91 Unspecified atrial fibrillation; N40.0 Benign prostatic hyperplasia without lower urinary tract symptoms; I10 Essential (primary) hypertension; E78.5 Hyperlipidemia, unspecified; D75.839 Thrombocytosis, unspecified; I49.01 Ventricular fibrillation; I46.8 Cardiac arrest due to other underlying condition; I73.9 Peripheral vascular disease, unspecified; E03.9 Hypothyroidism, unspecified; D64.9 Anemia, unspecified; D72.829 Elevated white blood cell count, unspecified; R13.10 Dysphagia, unspecified; Z66 Do not resuscitate; Z86.718 Personal history of other venous thrombosis and embolism; Z86.73 Personal history of transient ischemic attack (TIA), and cerebral infarction without residual deficits; Z90.49 Acquired absence of other specified parts of digestive tract; Z87.891 Personal history of nicotine dependence; Z79.01 Long term (current) use of anticoagulants
CPT/HCPCS: 36415; 36600; 70450; 71045; 71250; 71275; 74176; 80053; 80202; 81001; 82274; 82565; 82728; 82805; 83605; 83615; 83735; 84443; 84460; 84484; 85025; 85027; 85055; 85610; 85730; 86140; 87040; 87070; 87086; 87205; 87636; 92611; 93005; 93970; 94640; 96361; 96365; 96367; 96375; 96376; 97110; 97161; 97165; 97530; 97535; 99285; A9270; C9113; G0378; J0131; J0248; J0282; J0696; J1100; J1160; J1644; J1940; J3370; J3475; J7030; J7040; J7050; Q0249; Q9967